=== PATIENT | female | born 1980 | race Caucasian/White ===

== ENCOUNTER 2023-01-26 08:11 | Emergency (ER) | payer OTHER ==
--- OUTSIDE RECORDS SUMMARY | 2023-01-26 08:21 | XMS REPORT | Continuity of Care Document ---
:1980 Author Organization [facility] t Address [address] [place] [address] Support Name Relationship Address Phone NONE, SELF SA [address] [phone] [place] [address] NONE, SELF [place] [address] [phone] [place] [address] BEE AGRAWAL MO [address] [phone] [place] [address] MICHAEL AGRAWAL Mother Unavailable [phone] Liset Mom, Eliana Child [address] [place] [address] Jose Aunt, Shruthi Unavailable Unavailable [phone] Liset Agrawal Mother [address] [phone] [place] [address] Heber Arriola O [address] [phone] [place] [address] Legal Guardian O Unavailable Unavailable None2 O Unavailable Unavailable Primary Caregiver O Unavailable Unavailable Bill Quigley O [address] [phone] [id number] [address] Morgan Benedict O [address] [place] [address] Avery Reece O [address] [place] [address] Brijesh Shaffer O Unavailable Unavailable Nuha Ma O Unavailable Unavailable NACHO LEVI Unavailable [address] [phone] [place] [address] AUNT, SHRUTHI SIMON Unavailable Unavailable Unavailabl e SHARMIN AGRAWAL Unavailable [address] [phone] [place] [address] SHARMIN AGRAWAL Unavailable [address] [phone] [place] [address] Care Team Providers Name Role Phone HALIE LYONS Primary Care Physician Unavailable [email or web address] Attending Clinician Unavailable René Watson Attending Clinician Unavailable Sma Newman Attending Clinician Unavailable LYSSA BELTRÁN Attending Clinician Unavailable Mary Jane Ozuna Attending Clinician Unavailable Madeline Ly Attending Clinician Unavailable [facility] Roma MENDOZA Attending Clinician Mayte EISENBERG, Marie Attending Clinician MARIE SOLANO Attending Clinician Unavailable Doctor, Natalie Attending Clinician Unavailable Martin Schwarz MD Attending Clinician SILVINA MALLOY Attending Clinician Unavailable Eufemia EISENBERG, [facility] Attending Clinician [facility] Attending Clinician Unavailable Silvina Malloy DO Attending Clinician Mary PARKER, Floyd Ross Attending Clinician Unavailable Pcp, Patient Does Not Have Attending Clinician Unavailable MARTIN SCHWARZ Attending Clinician Unavailable Andre Holloway MD Attending Clinician Sally Harrison MD Attending Clinician Ashley Evans Attending Clinician Unavailable Radha Arriola Attending Clinician Unavailable MAE PORTER Attending Clinician Unavailable Vic Kinsey Attending Clinician Unavailable Glo Norris Attending Clinician Unavailable Summer Jackson Attending Clinician [phone] Kinjal Donohue Attending Clinician Unavailable Lindsey Key Attending Clinician Harsha Castaneda CNP Attending Clinician MITCHELL SALAZAR Attending Clinician Unavailable Mitchell Salazar DO Attending Clinician Physician, No Primary or Family Admitting Clinician UnavailMalaika Myles Admitting Clinician Unavailable MITCHELL SALAZAR Admitting Clinician Unavailable Ashley Evans Unavailable Unavailable Summer Jackson Unavailable [id number] Payers Payer Name Policy Type Policy Number Effective Date Expiration Date S ource [facility] [place] P [id number] 2022 00:00:00 Women(HTW) [facility] [place] P [id number] Women(HTW) Problems Condition Condition Condition Status Onset Resolution Last Treating Co mments Source Name Details Category Date Date Treatment Clinician Date Dyspnea on Condition Active 2022-02-07 Niraj Evans exertion 02-07 11:08:16 [facility] Commun i 00:00: ty 00 Health Substernal Condition Active 2022-02-07 Niraj Evans chest pain 02-07 11:08:16 [facility] Comm uni 00:00: ty 00 Health Lower Condition Active 2022-02-07 Cristina Le gacy extremity 02-07 11:08:16 Ashley Commu ni edema, 00:00: ty right 00 Health Numbness Condition Active 2022-02-07 Niraj Evans in feet 02-07 11:08:16 [facility]i 00:00: ty 00 Health Chronic Condition Active 2022-02-07 Geronimo Evans egacy cough 02-07 11:08:16 [facility] 00:00: ty 00 Health Dietary Condition Active 2022-02-07 Geronimo Evans egacy counseling 02-07 11:07:52 [facility] Comm uni and 00:00: ty surveillan 00 Health ce Exercise Condition Active 2022-02-07 Niraj Evans Counseling 02-07 11:07:52 [facility] uni 00:00: ty 00 Health Vitamin D Condition Active 2022-02-07 Niraj Jackson deficiency 04-01 11:07:52 Summer Comm uni 00:00: ty 00 Health Hyperchole Condition Active 2022-02-07 Niraj Jackson sterolemia 04-01 11:07:52 Summer Comm uni 00:00: ty 00 Health Mastodynia Condition Active 2022-02-07 Niraj Jackson , right 03-26 11:07:52 [facility]i 00:00: ty 00 Health Family Condition Active 2022-02-07 Geronimo Jackson egacy history 03-26 11:07:52 [facility] breast 00:00: ty cancer 1st 00 Health degree relative <50 Irregular Condition Active 2022-02-07 Niraj Jackson periods 03-26 11:07:52 Summer Arroyozuri 00:00: ty 00 Health BMI Condition Active 2022-02-07 Geronimo Jackson egacy 38.0-38.9 03-26 11:07:52 Summer Choudhuryu ni 00:00: ty 00 Health Bipolar Bipolar Disease Active Cid affective affective 7-16 Heal th disorder, disorder, 00:00: current current 00 episode episode mixed mixed Panic Panic Disease Active Univers attack attack 12-27 ity of 00:00: [place] 00 [facility] Branch Bipolar Bipolar Disease Active Cid disorder, disorder, 4-11 Heal th current current 00:00: episode episode 00 depressed, depressed, mild mild Post-traum Post-traum Disease Active Overview : Cid atic atic - [facility] stress stress 00:00: g of this disorder, disorder, 00 note unspecifie unspecifie might be d d different from the original. [place] 1 Priority 3 Bipolar Bipolar Disease Active Overview: Jeremias is disorder, disorder, 01-12 [facility] current current 00:00: g of this episode episode 00 note depressed, depressed, might be mild mild different from the original. [place] 1 Priority 1 Anxiety Anxiety Disease Active Overview: Jeremias is disorder, disorder, - [facility] unspecifie unspecifie 00:00: g of this d d 00 note might be different from the original. [place] 1 Priority 2 Problem Problem Disease Active Overview: Jeremias is related to related to 11-08 [facility] social social 00:00: g of this environmen environmen 00 note t t might be different from the original. [place] 4 Priority 3 Problem Problem Disease Active Overview: Jeremias is related to related to 09-26 [facility] primary primary 00:00: g of this support support 00 note group group might be different from the original. [place] 4 Priority 1 Occupation Occupation Disease Active Overview : Jose Roberto al problem al problem 09-26 [facility] 00:00: g of this 00 note might be different from the original. [place] 4 Priority 2 Obesity, Obesity, Disease Active Overview: Rowe rris unspecifie unspecifie 04-18 [facility] d d 00:00: g of this 00 note might be different from the original. [place] 3 Priority 1 Oligohydra Oligohydra Disease Active U nivers mnios, mnios, 6-07 [place]y of [place] [facility] Chlamydia Chlamydia Disease Active Uni vers trachomati trachomati it y of s s [place] infection infection Medi vickie of lower of lower Branch genitourin genitourin mela sites mela sites Other Other Disease Active Univers genetic genetic ity of screening screening [place] [facility] Screening Screening Disease Active Overview: Univers for for [place] ity of malignant malignant g of this [place] neoplasm neoplasm note Medica l of cervix of cervix might be Br anch different from the original. 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 Supervisio Supervisio Disease Active U nivers n of other n of other it y of normal normal [place] [facility] Branch Need for Need for Disease Active Unive rs prophylact prophylact it y of ic ic [place] vaccinatio vaccinatio Me dical n with n with Branch tetanus-di tetanus-di phtheria phtheria (Td) (Td) Tubal Tubal Disease Active Univers ligation ligation ity of status status [facility] Chest pain Chest pain Disease Active H [facility] Health Acute Acute Disease Active Cid nonintract nonintract He alth able able headache headache Conjunctiv Conjunctiv Disease Active H arris itis of itis of Health both eyes both eyes History of Past Illness Condition Condition Condition Status Onset Resolution Last Treating Co mments Source Name Details Category Date Date Treatment Clinician Date Clinical Condition Inactiv 2022-02-07 2022-02-07 Niraj Evans health e 09-18 00:00:00 11:08:16 [facility] i educator 00:00: ty visit 00 Health Std Condition Inactiv 2022-02-07 2022-02-07 Niraj Evans screening e 03-26 00:00:00 11:08:16 Ashley Com gabby 00:00: ty 00 Health Routine Condition Inactiv 2022-02-07 2022-02-07 Niraj Evans gynecologi e 03-26 00:00:00 11:08:16 Ashley Co mmuni vickie exam 00:00: ty 00 Health Allergies, Adverse Reactions, Alerts Allergy Allergy Status Severity Reaction(s) Onset Inactive Treating Comm ents Source Name Type Date Date Clinician No Known DA Active U 2022- [facility] [place] 00:[facility]: e 00 [facility] No Known DA Active U [facility] Allergie 1-31 [place] 00:00: e 00 [facility] No Known DA Active U [facility] Allergie 6-07 Clear s 00:00: Hair 00 [facility] No Known DA Active U [facility] Allergie 6-17 Clear s 00:00: Hair 00 [facility] No Known DA Active U [facility] Allergie 3-17 [place] 00:[facility]: e 00 [facility] CODEINE DRUG Active Hives Univers INGREDI 12-30 ity of 00:00: [place] 00 [facility] Branch Codeine Propensi Active Nausea Univers ty to and/or 12-30 ity of adverse Vomiting 00:00: [place] reaction 00 Medical s Branch Codeine Propensi Active Hives, Cid ty to Nausea and 12-30 Health adverse Vomiting 00:00: reaction 00 s to drug Family History Family Member Diagnosis Comments Start Date Stop Date Source Natural brother Depression Jose Roberto lino Maternal grandmother Depression Jeremias is Health Natural mother Depression Jose Roberto [facility] Social History Social Habit Start Date Stop Date Quantity Comments Source History SDOH Alcohol Univ ersity of Frequency [place] [facility] [place] History SDOH Alcohol Univ ersity of Std Drinks [place] [facility] [place] History SDOH Alcohol Univ ersity of Binge [facility] Exposure to Not sure University of SARS-CoV-2 (event) [facility] History of tobacco Snuff User [facility] use Alcohol intake 2022-08-07 2022-08-07 .14 /d Jose Roberto [facility] 00:00:00 00:00:00 PHQ2 Questionairre 2022-02-07 2022-02-07 [facility] Score 10:21:54 10:21:54 Health is there any chance 2022-02-07 2022-02-07 No [facility] that you could be 10:21:54 10:21:54 Health ? if the patient is 2022-02-07 2022-02-07 No [facility] using/has used a 10:21:54 10:21:54 Health vaping item, Current, Former, Never Used, Not asked drug use 2022-02-07 2022-02-07 Never [facility] ty 10:21:54 10:21:54 Health alcohol use 2022-02-07 2022-02-07 Currently [facility] ity 10:21:54 10:21:54 Health social history 2022-02-07 2022-02-07 reviewed today [facility] reviewed E&M 10:21:54 10:21:54 Health sexual orientation 2022-02-07 2022-02-07 Heterosexual [facility] 10:21:54 10:21:54 Health albumin, serum 2021-03-26 2021-03-26 4.4 g/dL [facility]unity 11:31:00 11:31:00 Health assessment of health 2021-03-26 2021-03-26 Adequate [facility] literacy (NCQA [facility] 10:13:03 10:13:03 Healtena h 2014 Standards, 3C10) alcohol use, 2021-03-26 2021-03-26 holidays/special [facility] frequency 10:13:03 10:13:03 occasions only Health how often per day 2021-03-26 2021-03-26 current some day L [facility]acy Community the patient is using 10:13:03 10:13:03 vaper Heal th vaping system patient considered 2021-03-26 2021-03-26 No [facility] to be homeless 10:13:03 10:13:03 Health Tobacco use and 2021-02-08 2021-02-08 User of smokeless Rowe rris Health exposure 00:00:00 00:00:00 tobacco Alcohol Comment 2021-02-08 2021-02-08 1 glass of wine [facility] CureVac 00:00:00 00:00:00 twice a week Sex [birth year] Jose Roberto Santana alth 00:00:00 00:00:00 Smoking Status Start Date Stop Date Source Ex-smoker 2021-02-08 00:00:00 2021-02-08 00:00:00 Jose Roberto loo Never smoker [facility] Medications Ordered Filled Start Stop Current Ordering Indication Dosage Frequency Signature Comments Components Source Medication Medication Date Date Medication? Clinician (SIG) Name Name nitrofurant Yes UTI 100mg Q.5D Take 1 Jim ris oin 1-03 symptoms capsule by [facility] h mono/m-ana 00:00: mouth 2 tals 00 times (MACROBID) daily 100 mg capsule erythromyci 2021-07- No Administer Jose Roberto n (ROMYCIN) 08-05 in each [facility] 5 mg/gram 00:00: 23:59 eye at (0.5 %) 00 :00 bedtime ophthalmic nightly ointment for 10 days fluticasone 2021-07- No Cough 1{spray QD Use 1 Cid propionate 08-16 } Hood in [facility] (FLONASE) 00:00: 00:00 each 50 00 :00 nostril mcg/actuati daily on nasal spray ergocalcife 2021-07- No Vitamin D 39569O Take 1 Cid rol 08-07 deficiency capsule by alth (VITAMIN 00:00: 00:00 mouth once D2) 1,250 00 :00 a week for mcg (50,000 12 doses unit) capsule albuterol 2021-07- No Former 2{puff} Inhale 2 Cid 90 08-07 smoker Puffs by [facility] mcg/actuati 00:00: 00:00 mouth 4 on inhaler 00 :00 times daily as needed for Shortness of Breath albuterol 2022- No Cough 4{puff} Jim ris (VENTOLIN 04-17 Health HFA,PROVENT 15:26: 09:30 [place] 57 :04 HFA,PROAIR HFA) inhaler 4 Puff cetirizine 2022- No Cough 10mg QD Take 1 Jim ris (ZYRTEC) 10 04-17 tablet by alth mg tablet 00:00: 00:00 mouth 00 :00 daily fluticasone 2021- No Cough 1{spray QD Use 1 Cid propionate 04-17 } Hood in [facility] (FLONASE) 00:00: 00:00 each 50 00 :00 nostril mcg/actuati daily on nasal spray escitalopra 2022- No Bipolar 20mg Take 1 Cid m oxalate 01-20 affective tablet by [facility] (LEXAPRO) 00:00: 00:00 disorder, mouth 20 mg 00 :00 current every tablet episode morning mixed, current episode severity unspecified lithium 2021-2022- No Bipolar 300mg Take 1 Jim ris (LITHOBID) 01-20 affective tablet by Health 300 mg 00:00: 00:00 disorder, mouth 3 extended 00 :00 current times release episode daily tablet mixed, current episode severity unspecified gabapentin 2021-2022- No Anxiety 300mg Take 1 Cid (NEURONTIN) 01-20 disorder, capsule by Health 300 mg 00:00: 00:00 unspecified mouth 3 capsule 00 :00 type times daily lurasidone 2021-2022- No Bipolar 60mg Take 1 H arris (LATUDA) 60 01-20 affective tablet by Health mg Tab 00:00: 00:00 disorder, mouth tablet 00 :00 current every episode evening mixed, with food. current episode severity unspecified lithium 2021-2021- No Bipolar 300mg Take 1 Jim ris (LITHOBID) 10-15 affective tablet by Health 300 mg 00:00: 00:00 disorder, mouth 3 extended 00 :00 current times release episode daily tablet mixed, current episode severity unspecified gabapentin 2021- No Anxiety 300mg Take 1 Cid (NEURONTIN) 10-15 disorder, capsule by Health 300 mg 00:00: 00:00 unspecified mouth 3 capsule 00 :00 type times daily lurasidone 2021-2021- No Bipolar 60mg Take 1 H arris (LATUDA) 60 10-15 affective tablet by Health mg Tab 00:00: 00:00 disorder, mouth tablet 00 :00 current every episode evening mixed, with food. current episode severity unspecified escitalopra 2021-2021- No Anxiety Take 1 Cid m (LEXAPRO) 10-15 disorder, tablet by Health 5 mg tablet 00:00: 23:59 unspecified mouth 00 :00 type every morning for 7 days, THEN 2 tablets every morning for 23 days. lithium 2021-2021- No Bipolar 300mg Take 1 Jim ris (LITHOBID) 08-23 affective tablet by Health 300 mg 00:00: 00:00 disorder, mouth 3 extended 00 :00 current times release episode daily tablet mixed, current episode severity unspecified gabapentin Anxiety 300mg Take 1 Cid (NEURONTIN) 08-23 disorder, capsule by Health 300 mg 00:00: 00:00 unspecified mouth 3 capsule 00 :00 type times daily lurasidone 2021- No Bipolar 60mg Take 1 H arris (LATUDA) 60 08-23 affective tablet by Health mg Tab 00:00: 00:00 disorder, mouth tablet 00 :00 current every episode evening mixed, with food. current episode severity unspecified hydrOXYzine 2020- No 25mg 25 mg, Uni vers (ATARAX) 12-27 0603 Oral, ity of tablet 25 21:30: 23:18 ONCE, 1 [place] mg 00 :00 dose, [facility] 12/27/20 at Branch 1630, CYNTHIA ondansetron 2020- No 4mg 4 mg, Slow Univers (ZOFRAN 08-12 IV Push, ity of (PF)) 11:30: 10:36 ONCE, 1 [place] injection 4 00 :00 dose, [place] [facility] mg 08/12/20 at Branch 0530, CYNTHIA ketorolac 2020- No 30mg 30 mg, Unive rs (TORADOL) 08-12 Slow IV ity of injection 11:30: 10:36 Push, [place] 30 mg 00 :00 ONCE, 1 Medical dose, [facility] 08/12/20 at 0530, CYNTHIA
Fa cult member approving Restricted medication : MITCHELL SALAZAR NaCl 0.9% 2020- No 1000mL at 999 Uni vers (NS) bolus 08-12 mL/hr, ity of infusion 10:30: 12:44 1,000 mL, Ting as 1,000 mL 00 :00 IV Medical Infusion, [place] ONCE, 1 dose, [place] 08/12/20 at 0430, CYNTHIA FERROUS Yes 1 tab Univers SULFATE 325 08-12 daily ity of MG (65 MG 10:00: [place] IRON) ORAL 03 Medical CPSR [place] ZITHROMAX Yes As Univer s GRAM ORAL 08-12 directed ity of PACK 10:00: [place] [address] Medical Branch FERROUS Yes 1 tab Univers SULFATE 325 1-17 daily ity of MG (65 MG 10:00: [place] IRON) ORAL Medical CPSR Branch ZITHROMAX 1 Yes As Univer s GRAM ORAL 1-17 directed ity of PACK 10:00: [place] [facility] FERROUS Yes 1 tab Univers SULFATE 325 1-17 daily ity of MG (65 MG 10:00: [place] IRON) ORAL Medical CPSR Branch ZITHROMAX 1 Yes As Univer s GRAM ORAL 1-17 directed ity of PACK 10:00: [place] [facility] FERROUS Yes 1 tab Univers SULFATE 325 1-17 daily ity of MG (65 MG 04:00: [place] IRON) ORAL Medical CPSR Branch ZITHROMAX 1 Yes As Univer s GRAM ORAL 1-17 directed ity of PACK 04:00: Medical Branch sulfamethox Yes [id number] 1{tbl} Take 1 Univers azole-trime 1-17 tablet by ity of thoprim 00:00: mouth [place] 800-160 mg 00 every 12 Medic al per tablet (twelve) Branc h hours. sulfamethox Yes [id number] 1{tbl} Take 1 Univers azole-trime 1-17 tablet by ity of thoprim 00:00: mouth [place] 800-160 mg 00 every 12 Medic al per tablet (twelve) Branc h hours. sulfamethox Yes [id number] 1{tbl} Take 1 Univers azole-trime 1-17 tablet by ity of thoprim 00:00: mouth [place] 800-160 mg 00 every 12 Medic al per tablet (twelve) Branc h hours. sulfamethox Yes [id number] 1{tbl} Take 1 Univers azole-trime 1-17 tablet by ity of thoprim 00:00: mouth [place] 800-160 mg 00 every 12 Medic al per tablet (twelve) Branc h hours. ZOLPIDEM 10 Yes 1 Tab Oral Univers MG ORAL TAB 6 QHSPRN ity of 00:00: [place] 00 Medical Branch Yes 1 Tab Oral Uni vers VIT-IRON 6-07 DAILY ity of FUMARATE-FA 00:00: [place] 60-1 MG 00 Medical ORAL TAB Branch ACETAMINOPH Yes 2 Tab Oral Univers EN 325 MG 6-07 Q4HPRN ity of ORAL TAB 00:00: [place] 00 Medical Branch ZOLPIDEM 10 Yes 1 Tab Oral Univers MG ORAL TAB 6-07 QHSPRN ity of 00:00: [place] 00 Medical Branch Yes 1 Tab Oral Uni vers VIT-IRON 6-07 DAILY ity of FUMARATE-FA 00:00: [place] 60-1 MG 00 Medical ORAL TAB Branch ACETAMINOPH Yes 2 Tab Oral Univers EN 325 MG 6-07 Q4HPRN ity of ORAL TAB 00:00: [place] 00 Medical Branch ZOLPIDEM 10 Yes 1 Tab Oral Univers MG ORAL TAB 6-07 QHSPRN ity of 00:00: [place] 00 Medical Branch Yes 1 Tab Oral Uni vers VIT-IRON 6-07 DAILY ity of FUMARATE-FA 00:00: [place] 60-1 MG 00 Medical ORAL TAB Branch ACETAMINOPH Yes 2 Tab Oral Univers EN 325 MG 6-07 Q4HPRN ity of ORAL TAB 00:00: [place] 00 Medical Branch ZOLPIDEM 10 Yes 1 Tab Oral Univers MG ORAL TAB 6-07 QHSPRN ity of 00:00: [place] 00 Medical Branch Yes 1 Tab Oral Uni vers VIT-IRON 6-07 DAILY ity of FUMARATE-FA 00:00: [place] 60-1 MG 00 Medical ORAL TAB Branch ACETAMINOPH Yes 2 Tab Oral Univers EN 325 MG 6-07 Q4HPRN ity of ORAL TAB 00:00: [place] 00 Medical Branch LATUDA 1969-0 Yes Take 1 [facility] (LURASIDONE 1- tablet by Com gabby HCL) 20 MG 00:00: mouth at ty TABS 00 bedtime Health (LITHIUM 1969-0 Yes Take 1 [facility] CARBONATE) 1- capsule by Com gabby 300 MG CAPS 00:00: mouth ty 00 three Health times a day (GABAPENTIN 1969-0 Yes Take 1 [facility] ) 600 MG 1-01 tablet by Commun i TABS 00:00: mouth ty 00 twice a Health day Vital Signs Vital Name Observation Time Observation Value Comments Source Respiratory rate 2020-12-27 23:20:08 17 /min [facility] Oxygen saturation in 2020-12-27 23:20:08 98 /min University of Arterial blood by [facility] Pulse oximetry Branch Systolic blood 2020-12-27 23:20:08 142 mm[Hg] Univer sity of pressure [place] [facility] Diastolic blood 2020-12-27 23:20:08 79 mm[Hg] Unive rsity of pressure [place] [facility] Heart rate 2020-12-27 23:20:08 80 /min [facility]i ty [facility] [place] [facility] Body temperature 2020-12-27 19:52:00 36.67 A[place]da Univ ersity of [place] [facility] Body height 2020-12-27 19:52:00 167.6 cm [facility]i ty [facility] [place] [facility] Body weight 2020-12-27 19:52:00 88.451 kg [facility] [place] [facility] BMI 2020-12-27 19:52:00 31.47 kg/m2 [facility] [place] [facility] Systolic blood 2020-08-12 12:51:16 123 mm[Hg] Univer sity of pressure [place] [facility] Diastolic blood 2020-08-12 12:51:16 78 mm[Hg] Unive rsity of pressure [place] [facility] Heart rate 2020-08-12 12:51:16 105 /min Universi ty [facility] [place] [facility] Respiratory rate 2020-08-12 12:51:16 16 /min Univ ersity of [place] [facility] Oxygen saturation in 2020-08-12 12:51:16 100 /min University of Arterial blood by [facility] Pulse oximetry Branch Body temperature 2020-08-12 09:58:00 36.94 A[place]da Univ ersity of [place] [facility] Body height 2020-08-12 09:58:00 167.6 cm [facility]i ty [facility] [place] [facility] Body weight 2020-08-12 09:58:00 84.823 kg [facility]i ty [facility] [place] [facility] BMI 2020-08-12 09:58:00 30.18 kg/m2 [facility]i [facility] [place] [facility] Systolic blood 2020-08-12 12:51:16 123 mm[Hg] Univer sity of pressure [place] [facility] Diastolic blood 2020-08-12 12:51:16 78 mm[Hg] Unive rsity of pressure [place] [facility] Heart rate 2020-08-12 12:51:16 105 /min [facility]i ty [facility] [place] [facility] Respiratory rate 2020-08-12 12:51:16 16 /min [facility] Oxygen saturation in 2020-08-12 12:51:16 100 /min University Arterial blood by [facility] Pulse oximetry Branch Body temperature 2020-08-12 09:58:00 36.94 Aleyda [facility] Body height 2020-08-12 09:58:00 167.6 cm [facility] Body weight 2020-08-12 09:58:00 84.823 kg [facility] BMI 2020-08-12 09:58:00 30.18 kg/m2 [facility] Systolic blood 2022-07-27 07:05:00 125 mm[Hg] [facility] pressure Diastolic blood 2022-07-27 07:05:00 78 mm[Hg] [facility] pressure Heart rate 2022-07-27 07:05:00 82 /min [facility] Body temperature 2022-07-27 07:05:00 36.72 Aleyda [facility] is Health Respiratory rate 2022-07-27 07:05:00 18 /min [facility] Oxygen saturation in 2022-07-27 07:05:00 95 /min [facility] Arterial blood by Pulse oximetry Body height 2022-07-26 20:19:00 167.6 cm [facility] Body weight 2022-07-26 20:19:00 85.3 kg [facility] BMI 2022-07-26 20:19:00 30.35 kg/m2 [facility] blood pressure, 2021-03-26 10:13:03 82 mm[Hg] [facility] diastolic Health blood pressure, 2021-03-26 10:13:03 108 mm[Hg] [facility] systolic Health oxygen saturation, 2021-03-26 10:13:03 98 /min [facility] oximetry Health pulse rate 2021-03-26 10:13:03 79 /min [facility] temperature E&M 2021-03-26 10:13:03 97.7 [degF] [facility] Health height in 2021-03-26 10:13:03 165.10 cm [facility] centimeters E&M Health weight E&M 2021-03-26 10:13:03 230 [lb_av] Niraj Josue [facility] weight in kilograms 2021-03-26 10:13:03 104.55 kg L [facility] temperature site 2021-03-26 10:13:03 oral Lega cy [facility] Procedures Procedure Date / Time Performing Clinician Source Performed CT HEAD W/O CONTRAST 2022-07-26 23:36:10 Rhea Hess [facility] XRAY CHEST 1 VIEW 2022-07-26 22:21:00 Marie Solano [facility] CBC/DIFF 2022-07-26 22:17:00 [facility] BASIC METABOLIC PANEL 2022-07-26 22:17:00 Rhea Hess [facility] PT/INR/PTT 2022-07-26 22:17:00 Rhea Hess h TROPONIN I 2022-07-26 22:17:00 Rhea Hess h CBC 2022-07-26 22:17:00 [facility] 2022-07-26 20:26:[address] CHEST W/O CONTRAST 2022-05-28 11:55:00 Martin Schwarz [facility] ROUTINE 12 LEAD EKG 2022-05-19 15:49:23 Silvina Malloy h PULMONARY - 6 MINUTE 2022-04-24 14:38:18 Carlos Eastman [facility] WALK EXERCISE TEST - COMPLEX PULMONARY FUNCTION TEST 2022-04-24 14:04:28 Carlos Eastman [facility] CBC/DIFF 2022-04-17 15:35:00 Martin Schwarz COMPREHENSIVE METABOLIC 2022-04-17 15:35:00 Martin Schwarz [facility] PANEL THYROID STIMULATING 2022-04-17 15:35:00 Martin Schwarz ealth HORMONE (TSH) HEPATITIS PANEL 2022-04-17 15:35:00 Martin Schwarz CHLAM/GC DNA AMPLI 2022-04-17 15:35:00 Martin Schwarz LIPID PROFILE 2022-04-17 15:35:00 Martin Schwarz h HEMOGLOBIN A1C 2022-04-17 15:35:00 Martin Schwarz h VIT D, 25-HYDROXY 2022-04-17 15:35:00 Martin Schwarz [facility] URINALYSIS 2022-04-17 15:35:00 Martin Schwarz h CBC 2022-04-17 15:35:00 Martin Schwarz h HIV AG/AB COMBO ROUTINE 2022-04-17 15:35:[address] [facility] SCREENING URINALYSIS 2022-04-17 15:35:00 Martin Schwarz h MICROSCOPIC-REFLEX DUPLEX DOPPLER LOWER 2022-03-21 09:35:00 Sally Harrison [facility] EXTREMITY VENOUS, UNILATERAL OR LIMITED TROPONIN I 2022-03-21 06:01:00 Andre Holloway ealth XRAY CHEST 2 VIEWS 2022-03-21 04:43:13 Andre Holloway [facility] TEST 2022-03-21 01:37:00 Sona Brooks HIV AG/AB COMBO 2022-03-21 01:18:00 Sona Brooks DIAGNOSTIC/SYMPTOMATIC BASIC METABOLIC PANEL 2022-03-21 01:18:00 Sona Brooks [facility] TROPONIN I 2022-03-21 01:18:00 Sona Brooks CBC/DIFF 2022-03-21 01:18:00 [facility] CBC 2022-03-21 01:18:00 [facility] D-DIMER 2022-03-21 01:18:00 [facility] GLUCOSE POC 2022-03-20 23:00:00 Unknown, Provider Jose Roberto Corral lt 12 LEAD EKG 2022-03-20 22:53:29 [facility] CONSENT/REFUSAL FOR 2022-01-15 01:01:38 Doctor Unassigned, No Un [facility] DIAGNOSIS AND TREATMENT Name Medical [facility] Most recent diastolic 2021-03-26 10:38:48 Summer Jackson [facility] blood pressure 80-89 mm Health Hg (HTN, CKD, CAD) (DM) Most recent systolic 2021-03-26 10:38:48 Summer Jackson [facility] blood pressure less than Health 130 mm Hg (DM), (HTN, CKD, CAD) CONSENT/REFUSAL FOR 2021-02-22 22:24:34 Doctor Unassigned, No [facility] Name [facility] URINALYSIS 2020-12-27 21:51:00 [facility] POCT TEST 2020-12-27 21:51:00 [facility] TROPONIN I 2020-12-27 21:34:00 [facility] HEPATIC FUNCTION PANEL 2020-12-27 21:34:00 [id number] (ALB,T.PRO,BILI [facility] Branch T,BU/BC,ALT,AST,ALK PHOS) BASIC METABOLIC PANEL 2020-12-27 21:34:00 [facility] (NA, K, CL, CO2, Medical Branch GLUCOSE, BUN, CREATININE, CA) CBC WITH DIFF 2020-12-27 21:34:00 [facility] N-TERMINAL PRO-BNP 2020-12-27 21:34:00 Ethel See [facility] XR CHEST 1 VW 2020-12-27 20:52:39 Ethel See [facility] CONSENT/REFUSAL FOR 2020-12-27 19:46:02 Doctor Unassigned, No [facility] Name [facility] CT ABDOMEN PELVIS WO 2020-08-12 11:05:55 Mitchell Salazar [facility] CONTRAST Medical Branch XR CHEST 1 VW 2020-08-12 11:05:40 Mitchell Salazar o f [facility] COVID-19 (ID NOW RAPID 2020-08-12 11:00:00 Mitchell Salazar [facility] 2020-08-12 10:35:00 Martin [facility] HEPATIC FUNCTION PANEL 2020-08-12 10:34:00 Mitchell Salazar [facility] ([id number]) (ALB,T.PRO,BILI [facility] T,BU/BC,ALT,AST,ALK PHOS) BASIC METABOLIC PANEL 2020-08-12 10:34:00 Mitchell Salazar [facility] (NA, K, CL, CO2, Medical Branch GLUCOSE, BUN, CREATININE, CA) CBC WITH DIFF 2020-08-12 10:34:00 Martin [facility] URINALYSIS 2020-08-12 10:34[facility] 2020-08-12 10:34:00 Martin [facility] Plan of Care Planned Activity Planned Date Details Comments Source Future Scheduled Test 2022 00:00:00 Breast Cancer Scrn [facility] (Yearly) [code = Breast Cancer Scrn (Yearly)] Future Scheduled Test 2012 00:00:00 Screening for [facility] malignant neoplasm of cervix (procedure) [code = 189414106] Future Scheduled Test 2012 00:00:00 Screening for [facility] malignant neoplasm of cervix (procedure) [code = 239628678] Future Scheduled Test 1983-01-20 00:00:00 COVID-19 Vaccine (#1) [facility] [code = COVID-19 Vaccine (#1)] Encounters Start End Encounter Admission Attending Care Care Encounter Source Date/Time Date/Time Type Type Clinicians Facility Department ID 2022-12-04 [facility] 14:10:19 0511 [facility] 2022-11-28 Outpatient PASA PASA [place] 15:15:29 0505 [facility] 2022-10-24 Outpatient alannah [facility] [id number] [facility] 13:17:03 [id number] [facility] 2022-07-25 Outpatient alannah [facility] [id number] [facility] 18:05:04 [id number] [facility] 2021-07-15 Outpatient [facility] [id number] [facility] 05:06:58 [id number] [facility] 2021-05-12 Outpatient [facility] [id number] Legacy 14:48:17 [id number] [facility] 2021-05-12 Outpatient [facility] [id number] Legacy 14:40:04 [id number] [facility] 2021-05-12 Outpatient [facility] [id number] Legacy 08:12:20 [id number] [facility] 2021-05-12 Outpatient [facility] [id number] [facility] 08:08:09 [id number] [facility] 2021-05-09 Outpatient [facility] [id number] Legacy 21:47:32 [id number] [facility] 2020-10-21 Inpatient [facility] MARY [id number] [facility] 17:52:00 [id number] [facility] 2020-01-11 Inpatient [facility] MARY [id number] [facility] 20:48:00 12175 [facility] 2023-01-23 2023-01-23 Emergency EM Watson, [facility] MARY [id number] [facility] 14:04:00 14:36:00 René 13 [facility] 2022-12-03 2022-12-03 Outpatient LAURA Morgan 4475 [place] 15:02:21 15:02:21 Cait 0510 [facility] 2022-10-23 2022-10-23 Emergency EM Trent, [facility] MARY [id number] [facility] 12:02:00 14:12:00 Sam 48 [facility] 2022-10-22 2022-10-[address] [facility] [id number] Cid 00:00:00 00:00:00 Conrad MCKENZIE 2022-09-30 2022-10-01 Emergency EM Laith, [facility] MARY [id number] [facility] 22:36:00 03:55:00 Mary Jane 98 [facility] 2022-08-26 2022-08-27 Emergency EM Malachi, [facility] MARY [id number] [facility] 19:08:00 00:30:00 Madeline Izquierdo [facility] 2022-07-28 2022-07-28 E-Visit States, [facility] [id number] Simpson 00:00:00 00:00:00 Roma Flores [facility]alt [facility] 2022-07-26 2022-07-27 Emergency Brusatori, [facility] [id number] Simpson 20:26:00 07:58:00 [facility] 2022-07-27 2022-07-27 Emergency BRUSATORI, [facility] [id number] Simpson 03:43:41 03:43:41 [facility] 2022-07-26 2022-07-26 Emergency BRUSATORI, [facility] [id number] Simpson 22:01:48 23:36:15 [facility] 2022-07-26 2022-07-26 Emergency [facility] [id number] Simpson 22:11:07 22:36:01 [facility] 2022-07-26 2022-07-26 E-Visit Doctor, [facility] [id number] Simpson 00:00:00 00:00:00 [facility] 2022-06-25 2022-06-25 Outpatient [facility] [id number] Simpson 00:00:00 00:00:00 [facility] 2022-06-18 2022-06-18 [facility]ici [facility] [id number] Simpson 16:40:00 16:40:00 ne [facility] 2022-06-16 2022-06-16 Outpatient SILVINA MALLOY [facility] [id number] Simpson 00:00:00 00:00:00 [facility] 2022-06-12 2022-06-12 [facility] [id number] Simpson 00:00:00 00:00:00 [facility] 2022-05-28 2022-05-28 Ancillary [facility] [id number] Simpson 11:00:00 12:05:05 Procedure Heal th 2022-05-21 2022-05-21 Outpatient [facility] [id number] Simpson 00:00:00 00:00:00 Health 2022-05-21 2022-05-21 E-Consult Eufemia, [facility] [id number] Simpson 00:00:00 00:00:00 [facility] 2022-05-21 2022-05-21 Clinical [facility] [id number] Simpson 00:00:00 00:00:00 Case Abeba Sousa 2022-05-19 2022-05-19 Office SchwarzMartin [facility] [id number] Simpson 15:00:00 16:41:29 Visit Silvina Malloy [facility] 2022-05-19 2022-05-19 Orders Silvina Malloy [facility] [id number] Simpson 00:00:00 00:00:00 Only [facility] 2022-05-16 2022-05-16 Outpatient [facility] [id number] Simpson 00:00:00 00:00:00 [facility] 2022-05-01 2022-05-01 Nurse Nani [facility] [id number] Simpson 00:00:00 00:00:00 Triage Floyd cooney [facility] 2022-04-24 2022-04-24 Hospital Pcp, [facility] [id number] Simpson 14:00:00 23:59:00 Encounter Patient Lisa quick Does Not Have 2022-04-17 2022-04-17 Outpatient 3 [facility] [id number] Simpson 15:35:36 15:36:14 [facility] 2022-04-17 2022-04-17 Outpatient [facility] [id number] Simpson 15:35:36 15:36:14 [facility] 2022-04-17 2022-04-17 Office Karishma [facility] [id number] Cid 14:40:00 15:34:49 Visit [facility] 2022-04-17 2022-04-17 [facility] [id number] Simpson 00:00:00 00:00:00 [facility] 2022-03-21 2022-03-21 Emergency Andre Holloway [facility] [id number] Simpson 02:59:00 10:26:00 Sally Harrison [facility] 2022-03-21 2022-03-21 Emergency [facility] [id number] Simpson 09:16:12 09:42:41 Health 2022-03-21 2022-03-21 Outpatient [facility] [id number] Simpson 04:30:28 04:43:24 Health 2022-03-20 2022-03-20 Emergency 1 [facility] [id number] Simpson 22:47:00 22:47:00 [facility] 2022-02-07 2022-02-08 Office Cristina, Ashley [facility] Bhargav harp/ Niraj 00:00:00 00:00:00 Visit Radha Arriola [id number] Communi [id number] [facility] 2022-01-14 2022-01-15 Emergency X [place], [facility] ERT [id number] Univers 20:53:00 00:00:[address] [facility] [place] 2022-01-14 2022-01-15 Emergency Hukranthi, [facility] [id number] Univers 20:53:00 00:00:00 [facility] [id number] it y of [place] 4.2.7.2.686 Ro HAIR [id number] [address] ([facility]) 2022-01-01 2022-01-01 Outpatient Malachi, SHERLYN LABO [id number] [facility] 07:22:00 07:22:00 Madeline 07 [facility] 2021-12-31 2022-01-01 Emergency EM Malachi, [facility] MARY [id number] [facility] 23:34:00 02:05:00 Madeline 14 [facility] 2021-12-31 2022-01-01 Emergency EM Malachi, [facility] [id number] 23:34:00 02:05:00 Madeline [id number] [facility] 2021-07-04 2021-07-04 Emergency EM Tio, [facility] MARY [id number] [facility] 12:13:00 15:56:00 Vic [id number] [facility] 2021-07-04 2021-07-04 Emergency EM Tio, [facility] [id number] [facility] 12:13:00 15:56:00 Vic 81 [facility] 2021-06-20 2021-06-20 Emergency EM Laith, [facility] MARY [id number] [facility] 22:30:00 23:44:00 Mary Jane [id number] [facility] 2021-06-20 2021-06-20 Emergency EM Laith [facility] [id number] [facility] 22:30:00 23:44:00 Mary Jane 23 [facility] 2021-04-28 2021-04-28 Inpatient EM Glo Norris [facility] MARY [id number] [facility] 13:53:00 19:49:00 74 [place] [facility] 2021-03-26 2021-03-26 Office Summer Jackson [facility] En counter/ Legacy 00:00:00 00:00:00 Visit Kinjal Donohue [id number] [facility] [id number] 2021-02-22 2021-02-22 Emergency Oziel [facility] [id number] Univers 18:05:00 19:28:00 [facility] [id number] i [place] [id number] [address] ([facility]) 2021-02-22 2021-02-22 Emergency X [facility] ERT [id number] Univers 17:23:00 17:23:[address] [facility] [place] 2020-12-27 2020-12-27 Emergency Castaneda, [facility] [id number] Univers 15:26:00 19:12:00 [facility] [id number] [place] [id number] [address] ([facility]) 2020-12-27 2020-12-27 Emergency X [facility] ERT [id number] Univers 14:46:00 14:46:[address] [facility] [place] 2020-08-12 2020-08-12 Emergency [facility] [id number] Univers 03:56:00 06:53:[address] [facility] [place] 2020-08-12 2020-08-12 Emergency Salazar, [facility] [id number] Univers 03:56:00 06:53:00 [facility] [id number] [place] [id number] [address] ([facility]) 2020-08-12 2020-08-12 Emergency Martin [facility] [id number] 03:56:00 06:53:00 [place] [id number] [place] 4.2.7.2.686 [place] [id number] Hospital 014 (CLC) Results Test Description Test Time Test Comments Results Result Comments Source INFLUENZA A B POC 2022-10-23 13:33:00 Test Item Value Reference Range Interpretation Comme nts INFLUENZA A POC (test code = INFLAAG) Negative Negative INFLUENZA B POC (test code = INFLBAG) Negative Negative SOURCE: NASALCOVID 19 INHOUSE [id number] 13:32:00 Test Item Value Reference Range Interpretation Comments COVID 19 INHOUSE AG (test code = NEGATIVE NEGATIVE [id number]) AG STREP GROUP A (THROAT)2022-10-23 13:27:00 Test Item Value Reference Range Interpretation Comments AG STREP GROUP A (THROAT) (test code NEGATIVE NEGATIVE = STREPA) - XR CHEST 1 [id number] 12:49:00 [facility] 1980 Sex: F FAX: Kirt Staley APR [place]: B St: REG Name: JERI LOPEZ [facility] : 1980 Age/S: 42/F[address] [facility] Unit #: [id number] Loc: [place] [address] Phys: Kirt Staley Acct:[id number] Dis Date: Status: REG ER PHONE #: [phone] Exam Date: 10/23/2022 1235 FAX #: [phone] Reason: cough EXAMS: CPT CODE: [id number] XR CHEST 1 V 00530 REASON FOR EXAM: cough Exam OrderDate: 10/23/2022 12:22 PM Ordering MRyan: Kirt Staley PROCEDURE: - XR CHEST 1 V COMPARISON:None FINDINGS: The lungs are clear. There is no pleural effusion or pneumothorax. Pulmonary vascularity is within normal limits. Cardiomediastinal silhouette is normal in size for technique. The mediastinal contours are within normal limits. Musculoskeletal structures are within normal limits. Cholecystectomy. IMPRESSION: No acute cardiopulmonary process. Location: [facility] at 1244 Reported and signed by: Elijah Rothman MD CC: Kirt Staley Technologist: Zuleika MINER(R) Trnscrd Date/Time/By: 10/23/2022 (7854) : By: [email or web address] [facility]: S: 10/23/2022 (0083) PAGE 1 Signed Report- XR CHEST 1 [id number] 02:24:00 [facility])Name: JERI LOPEZ : 1980 Sex: F FAX: Mary Jane Ozuna MD [phone] [place]: B St: REG Name: JERI LOPEZ [facility] : 1980 Age/S: 42/F [address] Unit #: [id number] Loc: [place] [address] Phys: Mary Jane Ozuna MD Acct: [id number] Dis Date: Status: REG ER PHONE #: [phone] Exam Date: 10/01/2022 0155 FAX #: [phone] Reason: cough, chemical inhalation EXAMS: CPT CODE: [id number] XR CHEST 1 V 31005 EXAM: - XR CHEST 1 V HISTORY: Cough. FINDINGS: Single AP view of the chest is provided. Heart size and vascularity are within normal limits. There is no evidence of a focal consolidation. There is no pleural effusion or pneumothorax. There is no definite acute osseous abnormality. IMPRESSION: No radiographic evidence of acute cardiopulmonary process. at 0224 Reported and signed by: Carlos Almanzar MD CC: Mary Jane Ozuna MD Technologist: Annalise Marinelli RT(R) Trnscrd Date/Time/By: 10/01/2022 (223) : By: [email or web address] [facility] Print D/T: S: 10/01/2022 (022) PAGE 1 Signed ReportCBC W/O [id number] 00:55:00 Test Item Value Reference Range Interpretation Comments WHITE BLOOD CELL (test code = 10.1 K/mm3 4.5-12.5 N WBC) RED BLOOD CELL (test code = 5.50 mill/mm3 3.7-5.2 H RBC) HEMOGLOBIN (test code = HGB) 15.8 gram/dL 11.5-15.5 H HEMATOCRIT (test code = HCT) 48.5 % 36.0-46.0 H MEAN CELL VOLUME (test code = 88.2 fL 80-98 N MCV) MEAN CELL HGB (test code = MCH) 28.7 picogram 27.0-33.0 N MEAN CELL HGB CONCETRATION 32.6 gram/dL 33.0-36.0 L (test code = MCHC) RED CELL DISTRIBUTION WIDTH 13.1 % 11.6-16.2 N (test code = RDW) PLATELET COUNT (test code = 300 K/mm3 150-450 N PLT) MEAN PLATELET VOLUME (test code 10.4 fL 6.7-11.0 N = MPV) URINALYSIS [id number] 00:49:00 Test Item Value Reference Range Interpretation Comments UA COLOR (test code = Light-Yellow YELLOW COLU) UA APPEARANCE (test Cloudy CLEAR A IS THE S AMPLE code = APPU) FROM ER OR L&D? Y IF THE ANSWER I S NO,PLEASE DOCUMENT TWO RN SIGNATURES HERE - Dorothea Hester.SP61 10/01/22 0048 UA GLUCOSE DIPSTICK NEGATIVE mg/dL NEGATIVE (test code = DGLUU) UA BILIRUBIN DIPSTICK NEGATIVE mg/dL NEGATIVE (test code = BILU) UA KETONE DIPSTICK NEGATIVE mg/dL NEGATIVE (test code = KETU) UA SPECIFIC GRAVITY 1.017 1.001-1.035 (test code = SGU) UA BLOOD DIPSTICK Negative mg/dL NEGATIVE (test code = BRYAN) UA PH DIPSTICK (test 6.5 5.0-8.0 code = SUYAPA) UA PROTEIN DIPSTICK NEGATIVE mg/dL NEGATIVE (test code = PROU) UA UROBILINIOGEN Normal mg/dL NEGATIVE DIPSTICK (test code = URO) UA NITRITE DIPSTICK NEGATIVE NEGATIVE (test code = SHUKRI) UA LEUKOCYTE ESTERASE NEGATIVE Norman/uL NEGATIVE W REFLEX (test code = LEUUR) UA WBC (test code = 0-5 per HPF 0-5 WBCU) UA RBC (test code = NONE SEEN #/HPF 0-5 RBCU) UA EPITHELIAL CELLS MANY per HPF FEW (test code = EPIU) UA BACTERIA (test NONE SEEN #/HPF NONE code = BACU) UA MUCUS (test code = FEW #/LPF FEW MUCU) Urine Source? Clean CatchHEPATIC FUNCTION [id number] 00:37:00 Test Item Value Reference Range Interpretation Comments TOTAL PROTEIN (test 7.6 gram/dL 6.4-8.2 N code = PROT) ALBUMIN (test code = 4.1 g/dL 3.4-5.0 N ALB) GLOBULIN (test code = 3.5 gram/dL 2.7-4.2 N GLOB) ALBUMIN/GLOBULIN RATIO 1.2 0.75-1.50 N (test code = A/G) BILIRUBIN TOTAL (test 0.70 mg/dL 0.0-1.0 N code = BILT) BILIRUBIN DIRECT (test 0.20 mg/dL 0.0-0.20 N code = BILD) SGOT/AST (test code = 17 IUnit/L 15-37 N AST) SGPT/ALT (test code = 10 IUnit/L 12-78 L ALT) ALKALINE PHOSPHATASE 74 IUnit/L 45-117 N Note change in TOTAL (test code = reference range due ALKP) to change in reagent. [id number] 00:37:00 Test Item Value Reference Range Interpretation Comments LIPASE (test code = LIP) 43 U/L 12.00-57.00 N HCG SERUM [id number] 00:37:00 Test Item Value Reference Range Interpretation Comments HCG SERUM QUAL (test NEGATIVE NEGATIVE This HC GQL test is NOT code = HCGQL) applicable for MALE patients.Check with nurse about probable order error.If Tumor Marker Test needed, nu rse should order test "HCG TU"(Test #550.96112)---- - COVID 19 Asymptomatic IH [id number] 00:37:00 Test Item Value Reference Range Interpretation Comments COVID 19 Asymptomatic IH AG (test NEGATIVE NEGATIVE code = COVNONPUIAG) INFLUENZA A B [id number] 00:37:00 Test Item Value Reference Range Interpretation Comments INFLUENZA A POC (test code = Negative Negative INFLAAG) INFLUENZA B POC (test code = Negative Negative INFLBAG) SOURCE: NASALBASIC METABOLIC [id number] 00:37:00 Test Item Value Reference Range Interpretation Comments SODIUM (test code = 140 mmol/L 136-145 N NA) POTASSIUM (test 3.6 mmol/L 3.5-5.1 N code = K) CHLORIDE (test code 106.0 mmol/L 98-107 N = CL) CARBON DIOXIDE 25.0 mmol/L 21-32 N (test code = CO2) ANION GAP (test 12.6 10-20 N code = GAP) GLUCOSE (test code 60 mg/dL 74-106 L = GLU) BLOOD UREA NITROGEN 6 mg/dL 7-18 L (test code = BUN) GLOMERULAR > 60 mL/min >=60 The Glomerular FILTRATION RATE Filtration R ate is a (test code = GFR) calculated parameterbased on serum Creatinin e, patient age and sex. GFR valuesless than 60 mL/min/1.73 squ are meters are kristyn cative ofChronic Kidne y Disease. Values less than 15 mL/min/1.73squa re meters indicate Kidney failure. The calculation for GFR is based on the CK D-EPI (2020) calculat ion. This formulais race indifferent and is the recommended for glen for GFRby the [facility] on for Adults.The GFR will not calculate i f the sex is unknown or if thepatient's ag e is <18 years. CREATININE (test 0.80 mg/dL 0.55-1.02 N Note pace ge in code = CREAT) reference rang e due to change in reage nt. BUN/CREATININE 7.8 10-20 L RATIO (test code = BUN/CREA) CALCIUM (test code 8.9 mg/dL 8.5-10.1 N = CA) AG STREP GROUP A (THROAT)2022-10-01 00:11:00 Test Item Value Reference Range Interpretation Comments AG STREP GROUP A (THROAT) (test code NEGATIVE NEGATIVE = STREPA) - CT ABD PELVIS [id number] 23:03:00 [facility])Name: JERI LOPEZ : 1980 Sex: F Name: JERI LOPEZ [facility] : 1980 Age/S: 42 / F [address] [facility] Unit #: [id number] Loc: [place] [address] Phys: Augustina Villalba MD Acct: [id number] Dis Date: Status: REG ER PHONE #: [phone] Exam Date: 08/26/20222252 FAX #: [phone] Reason: UPPER ABD PAIN EXAMS: CPT CODE: [id number] CT ABD PELVIS W/CONT [id number] EXAM: CT ABDOMEN/PELVIS WITH CONTRAST HISTORY: Pain TECHNIQUE: Helical imaging was performed diaphragm through the symphysis with multiplanar reformations obtained. IV CONTRAST: 100cc Omnipaque 300 GI CONTRAST: No DOSE: CT imaging performed atthis location utilizes radiation dose optimization technique which includes one or more of the follow in) Automated exposure control; 2) Adjustment of the mA and/or kV according to patient's size; 3) Use of iterative reconstruction techniques COMPARISON: None FINDINGS: Unless otherwise specified, incidental findings do not require dedicated imaging follow-up. LOWER CHEST: The visualized lung basesare clear. Visualized heart is unremarkable. SOLID ORGANS: No focal liver lesions. No intra or extrahepatic biliary ductal dilation. Cholecystectomy clips are noted. The spleen, pancreas, and adrenal glands are normal in appearance. Both kidneys demonstrate normal corticomedullary phase of enhancement. No renal/ureteral calculus, hydronephrosis, mass, or cyst is apparent. BOWEL: The small bowel and colon are normal in caliber without wall thickening. Appendix is not well visualized but there are nosecondary findings to suggest acute appendicitis. No signs of obstruction.] PERITONEUM: No free intraperitoneal fluid or air. RETROPERITONEUM: Normal caliber of the abdominal aorta is noted. No lymphade nopathy. PELVIS: The visualized urinary bladder wall is normal thickness. Organs of reproduction are unremarkable. MUSCULOSKELETAL: No acute osseous abnormality is seen. No destructive PAGE 1 Signed Report (CONTINUED) Name: JERI LOPEZH [place] : 1980 Age/S: 42 / F Jackelin Elam [facility] Unit #: [id number] Loc: [place] [address] Phys: Augustina Villalba MD Acct: [id number] Dis Date: Status: REG ER PHONE #: [phone] Exam Date: 08/26/20222252 FAX #: [phone] Reason: UPPER ABD PAIN EXAMS: CPT CODE: [id number] CT ABD PELVIS W/CONT 34737 (Continued) lytic or blastic osseous lesion is noted. SOFT TISSUES: No ventral abdominal hernia. No anasarca. IMPRESSION: No acute abnormality of the abdomen or pelvis. SL: [phone] at 2303 Reported and signed by: Cody Tai M.D. CC: Augustina Villalba MD Technologist:GOMEZ SAHNI, RT CTDI: DLP: Trnscb Date/Time: 08/26/2022 (2302) t.[email or web address].[email or web address] Orig Print D/T: S: 08/26/2022 (2306) PAGE 2 Signed ReportBASIC METABOLIC [id number] 22:38:00 Test Item Value Reference Range Interpretation Comments SODIUM (test code = 137 mmol/L 136-145 N NA) POTASSIUM (test 3.7 mmol/L 3.5-5.1 N code = K) CHLORIDE (test code 106.0 mmol/L 98-107 N = CL) CARBON DIOXIDE 23.0 mmol/L 21-32 N (test code = CO2) ANION GAP (test 11.7 10-20 N code = GAP) GLUCOSE (test code 105 mg/dL 74-106 N = GLU) BLOOD UREA NITROGEN 8 mg/dL 7-18 N (test code = BUN) GLOMERULAR > 60 mL/min See_Comment The Glomerular FILTRATION RATE Filtration R ate is a (test code = GFR) calculated parameterbased on serum Creatinin e, patient age and sex. GFR valuesless than 60 mL/min/1.73 squ are meters are kristyn cative ofChronic Kidne y Disease. Values less than 15 mL/min/1.73squa re meters indicate Kidney failure. The calculation for GFR is based on the CK D-EPI (2020) calculat ion. This formulais race indifferent and is the recommended for glen for GFRby the N atecu health Kid[facility] Foundati on for Adults.The GFR will not calculate i f the sex is unknown or if thepatient's ag e is <18 years. [Aut omated message] The sy stem which generated this result transmit pacheco reference range : >=60. The reference r romeo was not used to interpret this result as normal/abnor mal. CREATININE (test 0.60 mg/dL 0.55-1.02 N Note pace ge in code = CREAT) reference rang e due to change in reage nt. BUN/CREATININE 13.3 10-20 N RATIO (test code = BUN/CREA) CALCIUM (test code 7.9 mg/dL 8.5-10.1 L = CA) HEPATIC FUNCTION [id number] 22:38:00 Test Item Value Reference Range Interpretation Comments TOTAL PROTEIN (test 6.5 gram/dL 6.4-8.2 N code = PROT) ALBUMIN (test code = 3.4 g/dL 3.4-5.0 N ALB) GLOBULIN (test code = 3.1 gram/dL 2.7-4.2 N GLOB) ALBUMIN/GLOBULIN RATIO 1.1 0.75-1.50 N (test code = A/G) BILIRUBIN TOTAL (test 0.40 mg/dL 0.0-1.0 N code = BILT) BILIRUBIN DIRECT (test < 0.10 mg/dL 0.0-0.20 N code = BILD) SGOT/AST (test code = 21 IUnit/L 15-37 N AST) SGPT/ALT (test code = 17 IUnit/L 12-78 N ALT) ALKALINE PHOSPHATASE 80 IUnit/L 45-117 N Note change in TOTAL (test code = reference range due ALKP) to change in reagent. [id number] 22:38:00 Test Item Value Reference Range Interpretation Comments LIPASE (test code = LIP) 48 U/L 12.00-57.00 N HCG SERUM [id number] 22:38:00 Test Item Value Reference Range Interpretation Comments HCG SERUM QUAL (test NEGATIVE NEGATIVE This HC GQL test is NOT code = HCGQL) applicable for MALE patients.Check with nurse about probable order error.If Tumor Marker Test needed, nu rse should order test "HCG TU"(Test #[id number])---- - [id number] 22:38:00 Test Item Value Reference Range Interpretation Comments TROPONIN-HS (test <4.0 pg/mL 0-45 N CAUTION: U nits of the code = TROPI) current test m ethodology (pg/mL)differ f rom the prior test meth odology (ng/mL) by a fa ctorof 1000. CBC W/O [id number] 21:57:00 Test Item Value Reference Range Interpretation Comments WHITE BLOOD CELL (test code = 5.0 K/mm3 4.5-12.5 N WBC) RED BLOOD CELL (test code = 4.97 mill/mm3 3.7-5.2 N RBC) HEMOGLOBIN (test code = HGB) 14.1 gram/dL 11.5-15.5 N HEMATOCRIT (test code = HCT) 42.7 % 36.0-46.0 N MEAN CELL VOLUME (test code = 85.9 fL 80-98 N MCV) MEAN CELL HGB (test code = MCH) 28.4 picogram 27.0-33.0 N MEAN CELL HGB CONCETRATION 33.0 gram/dL 33.0-36.0 N (test code = MCHC) RED CELL DISTRIBUTION WIDTH 13.1 % 11.6-16.2 N (test code = RDW) PLATELET COUNT (test code = 230 K/mm3 150-450 N PLT) MEAN PLATELET VOLUME (test code 10.3 fL 6.7-11.0 N = MPV) URINALYSIS [id number] 21:54:00 Test Item Value Reference Range Interpretation Comments UA COLOR (test code = YELLOW YELLOW COLU) UA APPEARANCE (test CLEAR CLEAR IS THE S AMPLE code = APPU) FROM ER OR L&D? Y IF THE ANSWER I S NO,PLEASE DOCUMENT TWO RN SIGNATURES HERE - by SYED 08/26/22 5831 UA GLUCOSE DIPSTICK NEGATIVE mg/dL NEGATIVE (test code = DGLUU) UA BILIRUBIN DIPSTICK NEGATIVE mg/dL NEGATIVE (test code = BILU) UA KETONE DIPSTICK NEGATIVE mg/dL NEGATIVE (test code = KETU) UA SPECIFIC GRAVITY 1.021 1.001-1.035 (test code = SGU) UA BLOOD DIPSTICK 0.03 mg/dL NEGATIVE A (test code = BRYAN) (Trace) mg/dL UA PH DIPSTICK (test 5.5 5.0-8.0 code = SUYAPA) UA PROTEIN DIPSTICK NEGATIVE mg/dL NEGATIVE (test code = PROU) UA UROBILINIOGEN Normal mg/dL NEGATIVE DIPSTICK (test code = URO) UA NITRITE DIPSTICK NEGATIVE NEGATIVE (test code = SHUKRI) UA LEUKOCYTE ESTERASE NEGATIVE Norman/uL NEGATIVE W REFLEX (test code = LEUUR) UA WBC (test code = 0-5 per HPF 0-5 WBCU) UA RBC (test code = 0-2 #/HPF 0-5 RBCU) UA EPITHELIAL CELLS FEW per HPF FEW (test code = EPIU) UA BACTERIA (test NONE SEEN #/HPF NONE code = BACU) UA MUCUS (test code = FEW #/LPF FEW MUCU) Urine Source? Clean Catch- XR CHEST 1 [id number] 20:09:00 [facility]Name: JERI LOPEZ : 1980 Sex: F FAX: Augustina Ogden [phone] [place]: [address] St: PRE Name: JERI LOPEZ : 1980 Age/S: 42/F [address] Unit #: [id number] Loc: [place] [address] Phys: Moisés Villalba MD Acct: [id number] Dis Date: Status: PRE ER PHONE #: [phone] Exam Date: 08/26/20221999 FAX #: [phone] Reason: CHEST PAIN EXAMS: CPT CODE: [id number] XR CHEST 1 V 71163 REASON FOR EXAM:CHEST PAIN Exam Order Date: 08/26/2022 7:11 PM Ordering M.Emre: Augustina Villalba MD PROCEDURE: - XRCHEST 1 V COMPARISON: 07/04/2021 FINDINGS: Lines/Tubes: None The lungs are clear. There is no pleural effusion or pneumothorax. Pulmonary vascularity is within normal limits. Cardiomediastinal silhouette and mediastinal contours are unchanged when accounting for differences in technique. Musculoskeletal structures and visualized portions of the upper abdomen are also unchanged. IMPRESSION: No acute cardiopulmonary process. Location: at 2008 Reported and signed by: Cody Tai M.D. CC: Augustina Villalba MD Technologist: ALINA MARTINEZ; RT Ana(R Trnscrd Date/Time/By: 08/26/2022 (2008) : By: [email or web address] Orig PrintD/T: S: 08/26/2022 (2011) PAGE 1 Signed [id number] 20:26:5112 LEAD EKG FOR [facility] Test Date: 7443-96-88Qwz Name: JERI LOPEZ Department: 5520Patient ID: [id number] Room: Gender: F Gunner'S Mate: : 1980 Requested By: CORWIN GALLEGOS Order Number: [id number] Reading MD: Estelle Morales MeasurementsIntervals [place] Rate: 114 P: 78PR:132 QRS: 68QRSD: 78 T: 65QT: 305 QTc: 372 Interpretive StatementsSINUS TACHYCARDIAABNORMAL RHYTHM ECG Electronically Signed On 07-28-2022 11:44:05 LEGAL RESEARCH ANALYST [place] [address] LEAD [id number] 15:49:2312 LEAD EKG FOR [facility] Test Date: 3500-84-61Ldw Name: JERI LOPEZ Department: 4621Patient ID: [id number] Room: Gender: F Gunner'S Mate: [id number]: 1980 Requested By: SILVINA MALLOY Order Number: [id number] Reading MD: Estelle Morales MeasurementsIntervals [place] Rate: 82 P: 59PR: 156 QRS: 53QRSD: 80 T: 49QT: 352 QTc: 390 Interpretive StatementsSINUS RHYTHMElectronically Signed On 05-19-2022 16:04:50 [address] [facility] - 6 MINUTE WALK EXERCISE TEST - [id number] 14:38:18 Test Item Value Reference Range Interpretation Comments TEXT (test code = hchd.localdeptVIDataMGCO 3333) [id number] Summary Report With 75 Characters.txt [facility] [id number] 14:04:28 Test Item Value Reference Range Interpretation Comments TEXT (test code = hchd.localdeptVIDataMGCO 3333) [id number] Summary Report With 75 Characters.txt [facility] p24 Ag SerPl Ql [id number] 21:18:54 Test Item Value Reference Range Interpretation Comments HIV 1+2 Ab+HIV1 p24 Ag SerPl Ql [place] NEGATIVE Negative (test code = 23539-7) [facility] p24 Ag SerPl Ql [id number] 02:28:19 Test Item Value Reference Range Interpretation Comments HIV 1+2 Ab+HIV1 p24 Ag SerPl Ql [place] NEGATIVE Negative (test code = 89564-6) HHSPOCT GLUCOSE POC docked [id number] 23:01:15 Test Item Value Reference Range Interpretation Comments Glucose POC (test code = 51862143) 83 mg/dL 74-106 Lab Interpretation (test code = Normal 37923-5) Jose Roberto [place] [address] Lead [id number] 22:53:2912 LEAD EKG FOR [facility] Test Date: 6498-67-22Vwd Name: JERI LOPEZ Department: 5520Patient ID: [id number] Room: Gender: F Gunner'S Mate: [id number]: 1980 Requested By: SONA BROOKS Order Number: [id number] Reading MD: Amador Manuel MeasurementsIntervals [place] Rate: 107 P: 81PR: 144 QRS: 79QRSD: 79 T: 72QT: 325 QTc: 388 Interpretive Stat[address] TACHYCARDIANonspecific ST changes in Inferior LeadsPossible Right Atrial AbnormalityElectronically Signed On 03-21-2022 10:50:37 CDT by Amador Wray HealthURINALYSIS COMPLETE 2022-01-01 00:41:00 Test Item Value Reference Range Interpretation Comments UA COLOR (test code = Dark-Yellow YELLOW COLU) UA APPEARANCE (test Cloudy CLEAR A IS THE S AMPLE code = APPU) FROM ER OR L&D? Y IF THE ANSWER I S NO,PLEASE DOCUMENT TWO RN SIGNATURES HERE - by [id number] 01/01/22 0041 UA BILIRUBIN DIPSTICK NEGATIVE mg/dL NEGATIVE (test code = BILU) UA SPECIFIC GRAVITY 1.039 1.001-1.035 (test code = SGU) UA PH DIPSTICK (test 6.0 5.0-8.0 code = SUYAPA) UA UROBILINIOGEN 3.0 (1+) mg/dL NEGATIVE A DIPSTICK (test code = URO) UA NITRITE DIPSTICK NEGATIVE NEGATIVE (test code = SHUKRI) UA LEUKOCYTE ESTERASE 500 Norman/uL (3+) NEGATIVE A W REFLEX (test code = Norman/uL LEUUR) UA WBC (test code = >200 per HPF 0-5 A WBCU) UA RBC (test code = 101-150 #/HPF 0-5 RBCU) UA EPITHELIAL CELLS MOD per HPF FEW (test code = EPIU) UA BACTERIA (test FEW #/HPF NONE A code = BACU) UA GLUCOSE DIPSTICK NEGATIVE mg/dL NEGATIVE (test code = DGLUU) UA KETONE DIPSTICK NEGATIVE mg/dL NEGATIVE (test code = KETU) UA BLOOD DIPSTICK 0.03 mg/dL NEGATIVE A (test code = BRYAN) (Trace) mg/dL UA PROTEIN DIPSTICK 50 (1+) mg/dL NEGATIVE A (test code = PROU) UA CALCIUM OXALATE FEW #/HPF NONE A CRYSTALS (test code = CAOXU) UA MUCUS (test code = FEW #/LPF FEW MUCU) Urine Source? Clean CatchUR HCG [id number] 00:41:00 Test Item Value Reference Range Interpretation Comments UR HCG QUAL (test NEGATIVE This HCGQL test is NOT code = HCGQLU) applicable fo r MALE patients.Check with nurse about probable order error.If Tumor Marker Test needed, nu rse should order test "HCG TU"(Test #550.83575)---- - Urine Source? Clean CatchBASIC METABOLIC [id number] 14:25:00 Test Item Value Reference Range Interpretation Comments SODIUM (test code = 139 mmol/L 136-145 N NA) POTASSIUM (test code 3.8 mmol/L 3.5-5.1 N = K) CHLORIDE (test code 110.0 mmol/L 98-107 H = CL) CARBON DIOXIDE (test 21.0 mmol/L 21-32 N code = CO2) ANION GAP (test code 11.8 10-20 N = GAP) GLUCOSE (test code = 94 mg/dL 74-106 N GLU) BLOOD UREA NITROGEN 8 mg/dL 7-18 N (test code = BUN) GLOMERULAR > 60 mL/min See_Comment Estimated GFR b y FILTRATION RATE using Modifi ed MDRD (test code = GFR) formula.Ch ronic kidney disease is defined as eith er kidney damageor GFR <60 mL/min/1.73 m2 for >3 months. [Automated mess age] The system [employer] generated this result transmitted ref erence range: >=60. Th e reference range was not used to int erpret this result as normal/abnormal . CREATININE (test 0.80 mg/dL 0.55-1.02 N Note pace ge in code = CREAT) reference rang e due to change in reagent. BUN/CREATININE RATIO 10.7 10-20 N (test code = BUN/CREA) CALCIUM (test code = 9.3 mg/dL 8.5-10.1 N CA) HCG SERUM [id number] 14:25:00 Test Item Value Reference Range Interpretation Comments HCG SERUM QUAL (test NEGATIVE NEGATIVE This HC GQL test is NOT code = HCGQL) applicable for MALE patients.Check with nurse about probable order error.If Tumor Marker Test needed, nu rse should order test "HCG TU"(Test #550.57764)---- - [id number] 14:25:00 Test Item Value Reference Range Interpretation Comments TROPONIN-HS (test <4.0 pg/mL 0-45 N CAUTION: U nits of the code = TROPI) current test m ethodology (pg/mL)differ f rom the prior test meth odology (ng/mL) by a fa ctorof 1000. HEPATIC FUNCTION [id number] 14:24:00 Test Item Value Reference Range Interpretation Comments TOTAL PROTEIN (test 7.0 gram/dL 6.4-8.2 N code = PROT) ALBUMIN (test code = 4.4 g/dL 3.4-5.0 N ALB) GLOBULIN (test code = 2.6 gram/dL 2.7-4.2 L GLOB) ALBUMIN/GLOBULIN RATIO 1.7 0.75-1.50 H (test code = A/G) BILIRUBIN TOTAL (test 0.50 mg/dL 0.0-1.0 N code = BILT) BILIRUBIN DIRECT (test 0.20 mg/dL 0.0-0.20 N code = BILD) SGOT/AST (test code = 20 IUnit/L 15-37 N AST) SGPT/ALT (test code = 15 IUnit/L 12-78 N ALT) ALKALINE PHOSPHATASE 52 IUnit/L 45-117 N Note change in TOTAL (test code = reference range due ALKP) to change in reagent. [id number] 14:24:00 Test Item Value Reference Range Interpretation Comments LIPASE (test code = LIP) 31 U/L 12.00-57.00 N [id number] 14:11:00 Test Item Value Reference Range Interpretation Comments D-DIMER (test 233.00 ng/mLFEU 0-500 N Clinical Cu t-off value code = DDIMER) for D-Dimer i s 500 ng/mL FEU. Comment: T conrad [employer] D-Dim er assay is intended for use asan aid in the diag nosis of venous thromboe mbolism (VTE)[deep vein thrombosis (DVT ) or pulmonary embol ism (PE)].The measu rement of D-Dimer should not be used as an aid inthe diagnosis of VT E, in patient with: -Therapeutic do se anticoagulant t herapy for >24 hours -Fibr inolytic therapy within previous 7 days -Trauma or surgery within previous 4 weeks -Disseminated malignancies -A ortic aneurysm -Sepsi s, severe infections, pne umonia, severe skin inf ections -Liver cirrhosi s - CBC W/O [id number] 14:02:00 Test Item Value Reference Range Interpretation Comments WHITE BLOOD CELL (test code = 7.3 K/mm3 4.5-12.5 N WBC) RED BLOOD CELL (test code = 5.25 mill/mm3 3.7-5.2 H RBC) HEMOGLOBIN (test code = HGB) 15.3 gram/dL 11.5-15.5 N HEMATOCRIT (test code = HCT) 45.1 % 36.0-46.0 N MEAN CELL VOLUME (test code = 85.9 fL 80-98 N MCV) MEAN CELL HGB (test code = MCH) 29.1 picogram 27.0-33.0 N MEAN CELL HGB CONCETRATION 33.9 gram/dL 33.0-36.0 N (test code = MCHC) RED CELL DISTRIBUTION WIDTH 12.8 % 11.6-16.2 N (test code = RDW) PLATELET COUNT (test code = 286 K/mm3 150-450 N PLT) MEAN PLATELET VOLUME (test code 10.2 fL 6.7-11.0 N = MPV) - XR CHEST 1 [id number] 13:17:00 [facility])Name: JERI LOPEZ : 1980 Sex: F FAX: Augustina Ogden [phone] [place]: St: REG Name: JERI LOPEZ [facility] : 1980 Age/S: 40/F [address] [facility] Unit #: [id number] Loc: [place] [address] Phys: Augustina Villalba MD Acct: [id number] Dis Date: Status: REG ER PHONE #: [phone] Exam Date: 07/04/2021 1245 FAX#: [phone] Reason: CHEST PAIN EXAMS: CPT CODE: [id number] XR CHEST 1 V [id number] REASON FOR EXAM: CHEST PAIN Exam Order Date: 07/04/2021 12:22 PM Ordering MRyan: Augustina Villalba MD PROCEDURE: - XR CHEST 1 V COMPARISON: Chest x-ray June 20, 2021 FINDINGS: The lungs are clear. There is no pleural effusion or pneumothorax. Pulmonary vascularity is within normal limits. Cardiomediastinal silhouette is normal in size for technique. The mediastinal contours are within normal limits. Musculoskeletal structures are within normal limits. The visualized upper abdomen is within normal limits. IMPRESSION:No acute cardiopulmonary process. Location: [facility] at 1317 Reported and signed by: Elijah Rothman MD CC: Augustina Villalba MD Technologist: Radha RT(R) Trnscrd Date/Time/By: 07/04/2021 (8271) : By: [email or web address] Orig Print D/T: S: 07/04/2021 (9125) PAGE 1 Signed ReportURINALYSIS [id number] 13:00:00 Test Item Value Reference Range Interpretation Comments UA COLOR (test code = YELLOW YELLOW COLU) UA APPEARANCE (test CLEAR CLEAR IS THE S AMPLE code = APPU) FROM ER OR L&D? Y IF THE ANSWER I S NO,PLEASE DOCUMENT TWO RN SIGNATURES HERE - by V.LAB.HW1 07/04/21 1239 UA GLUCOSE DIPSTICK NEGATIVE mg/dL NEGATIVE (test code = DGLUU) UA BILIRUBIN DIPSTICK NEGATIVE mg/dL NEGATIVE (test code = BILU) UA KETONE DIPSTICK 10 (1+) mg/dL NEGATIVE A (test code = KETU) UA SPECIFIC GRAVITY 1.033 1.001-1.035 (test code = SGU) UA BLOOD DIPSTICK Negative mg/dL NEGATIVE (test code = BRYAN) UA PH DIPSTICK (test 6.5 5.0-8.0 code = SUYAPA) UA PROTEIN DIPSTICK 30 (1+) mg/dL NEGATIVE A (test code = PROU) UA UROBILINIOGEN 2.0 (1+) mg/dL NEGATIVE A DIPSTICK (test code = URO) UA NITRITE DIPSTICK NEGATIVE NEGATIVE (test code = SHUKRI) UA LEUKOCYTE ESTERASE 75 Norman/uL (1+) NEGATIVE A W REFLEX (test code = Norman/uL LEUUR) UA WBC (test code = 6-10 per HPF 0-5 A WBCU) UA RBC (test code = 3-5 #/HPF 0-5 RBCU) UA EPITHELIAL CELLS FEW per HPF FEW (test code = EPIU) UA BACTERIA (test FEW #/HPF NONE A code = BACU) UA MUCUS (test code = MODERATE #/LPF FEW A MUCU) Urine Source? CatheterDRUGS OF ABUSE SCREEN [id number] 13:00:00 Test Item Value Reference Range Interpretation Comments URN COCAINE (test code = NEGATIVE See_Comment [A utomated message] COCAURN) The system [employer] generated this result transmitted ref erence range: <300 ng/ mL. The reference r romeo was not used to interpret this result as normal/abnor mal. URN CANNABINOIDS (test NEGATIVE See_Comment [Aut omated message] code = CANNABURN) The system which generated this result transmitted ref erence range: <50 ng/m L. The reference range was not used to int erpret this result as normal/abnormal . URN AMPHETAMINE (test POSITIVE See_Comment [Auto mated message] code = AMPHETURN) The system which generated this result transmitted ref erence range: <1000 ng /mL. The reference r romeo was not used to interpret this result as normal/abnor mal. URN BARBITURATE (test NEGATIVE See_Comment [Auto mated message] code = BARBITURN) The system which generated this result transmitted ref erence range: <200 ng/ mL. The reference r romeo was not used to interpret this result as normal/abnor mal. URN BENZODIAZEPINE (test NEGATIVE See_Comment [A utomated message] code = BENZOURN) The system which generated this result transmitted ref erence range: <200 ng/ mL. The reference r romeo was not used to interpret this result as normal/abnor mal. URN OPIATES (test code = NEGATIVE See_Comment [A utomated message] OPIATURN) The system [employer] generated this result transmitted ref erence range: <300 ng/ mL. The reference r romeo was not used to interpret this result as normal/abnor mal. URN PHENCYCLIDINE (PCP) NEGATIVE See_Comment [Au tomated message] (test code = PHENCURN) The s ystem which generated this result transmitted ref erence range: <25 ng/m L. The reference range was not used to int erpret this result as normal/abnormal . URN METHADONE (test code NEGATIVE See_Comment [A utomated message] = METHAURN) The system [employer] generated this result transmitted ref erence range: <300 ng/ mL. The reference r romeo was not used to interpret this result as normal/abnor mal. Urine Source? CatheterCOVID 19 INHOUSE [id number] 13:00:00 Test Item Value Reference Range Interpretation Comments COVID 19 INHOUSE AG (test code = NEGATIVE NEGATIVE [id number]) STREPTOCOCCUS PCR [id number] 09:15:00 Test Item Value Reference Range Interpretation Comments STREPTOCOCCUS DYSGALACTIAE NEGATIVE FOR G/C NEGATIVE (test code = STREPGC) STREPA MOLECULAR (test NEGATIVE FOR GRP A NEGATIVE code = STREPAMOL) COVID 19 INHOUSE [id number] 23:30:00 Test Item Value Reference Range Interpretation Comments COVID 19 INHOUSE AG (test code = NEGATIVE NEGATIVE [id number]) - XR CHEST 1 [id number] 23:26:00 [facility] 1980 Sex: F FAX: Adonay Palma APRN [phone] [place]: [address]: REG Name: JERI LOPEZ [facility] : 1980Age/S: 40/F Jackelin Linaresncer y Unit #: [id number] Loc: [place] [address] Phys: Adonay Franz Acct: [id number] Dis Date: Status: REG ER PHONE #: [phone] Exam Date: 06/20/2021 232 FAX #: [phone] Reason: cough w/ pain. PUI EXAMS: CPT CODE: [id number] XR CHEST 1 V [id number] EXAMINATION: - XR CHEST 1 V LOCATION: H61 INDICATION/CLINICAL HISTORY: cough w/ pain. PUI COMPARISON: Chest x-ray 04/28/2021 TECHNIQUE: AP view of the chest. FINDINGS: Lines/device:None. Cardiomediastinal silhouette: Normal. Pulmonary vasculature: Not congested. Lungs/pleura: No consolidation, pneumothorax orpleural effusion. Upper abdomen: Unremarkable. Regional osseous structures: Intact. IMPRESSION: No acute cardiopulmonary findings. at 2326 Reported and signed by: Maru Valente M.D. CC: Adonay Franz Technologist: RT OLGA(R) Trnheather Date/Time/By: 06/20/2021 (2378) : By: [email or web address] Orig Print D/T: S: 06/20/2021 (4633) PAGE 1 Signed ReportTROP-I HIGH SENSITIVITY 2021-04-28 17:06:00 Test Item Value Reference Range Interpretation Comments TROP-I HIGH < 3 ng/L 0-34 N CAUTION: Units of the SENSITIVITY (test current te st methodology code = TROPIHS) (ng/L) diffe rfrom the prior test meth odology (ng/mL) by a fa ctor of 1000. 99t h Percentile Uppe r Reference Limit (URL): Fe males: 34 ng/LMales: 54 n g/L In order to distin guish acute elevations of h igh sensitivitytrop onin from other clinical conditions, the FourthUnive rsal Definition of M yocardial Infarction stressesclinica l assessment and the demonstration o f a rise and/orfall in s erial troponin result s above the URL. These resu lts were obtained using Siemens AtellZAP IM TnI Hreagent. Results from di fferent methodologies s hould not becompared to o ne another as quantitative results and URLs mayvar y by method. [id number] 16:06:00 Test Item Value Reference Range Interpretation Comments LITHIUM (test code = LITH) 0.3 mmol/L 1.0-1.20 L COMPREHENSIVE METABOLIC [id number] 15:56:00 Test Item Value Reference Range Interpretation Comments SODIUM (test code = NA) 140 mEq/L 134-147 N POTASSIUM (test code = 3.6 mEq/L 3.4-5.0 N K) CHLORIDE (test code = 106 mEq/L 100-108 N CL) CARBON DIOXIDE (test 24 mEq/l 21-33 N code = CO2) ANION GAP (test code = 13 0-20 N GAP) GLUCOSE (test code = 79 mg/dL 70-110 N GLU) BLOOD UREA NITROGEN 7 mg/dL 7-18 N (test code = BUN) GLOMERULAR FILTRATION 70.1 105-110 L Units of measure = RATE (test code = GFR) ml/mi n/1.73 m2 CREATININE (test code = 0.9 mg/dL 0.6-1.3 N CREAT) TOTAL PROTEIN (test 7.3 g/dL 6.4-8.2 N code = PROT) ALBUMIN (test code = 3.90 g/dL 3.4-5.0 N ALB) CALCIUM (test code = 9.0 mg/dL 8.0-10.5 N CA) BILIRUBIN TOTAL (test 0.50 mg/dL 0.0-1.0 N code = BILT) SGOT/AST (test code = 18 IUnit/L 15-37 N AST) SGPT/ALT (test code = 10 IUnit/L 30-65 L ALT) ALKALINE PHOSPHATASE 67 IUnit/L 20-125 N TOTAL (test code = ALKP) [id number] 15:56:00 Test Item Value Reference Range Interpretation Comments MAGNESIUM (test code = MAG) 1.78 mg/dL 1.80-2.40 L CBC W/AUTO [id number] 15:41:00 Test Item Value Reference Range Interpretation Comments WHITE BLOOD CELL (test code = 8.7 x10 3/uL 4.5-11.0 N WBC) RED BLOOD CELL (test code = 5.06 x10 6/uL 3.54-5.02 H RBC) HEMOGLOBIN (test code = HGB) 15.5 g/dL 11.0-15.0 H HEMATOCRIT (test code = HCT) 45.5 % 33.0-45.0 H MEAN CELL VOLUME (test code = 89.9 fL 81.0-99.0 N MCV) MEAN CELL HGB (test code = MCH) 30.6 pg 27.0-33.0 N MEAN CELL HGB CONCETRATION 34.1 g/dL 33.0-37.0 N (test code = MCHC) RED CELL DISTRIBUTION WIDTH CV 12.3 % 11.5-14.5 N (test code = RDW) PLATELET COUNT (test code = 282 x10 3/uL 150-400 N PLT) NEUTROPHIL % (test code = NT%) 56.4 % 56.0-77.0 N LYMPHOCYTE % (test code = LY%) 32.3 % 14.0-32.0 H NEUTROPHIL # (test code = NT#) 4.88 x10 3/uL 2.0-7.6 N LYMPHOCYTE # (test code = LY#) 2.79 x10 3/uL 1.0-3.8 N MANUAL DIFF REQUIRED (test code NO = MDIFF) RED CELL DISTRIBUTION WIDTH SD 40.6 fL 37.0-54.0 N (test code = RDW-SD) MEAN PLATELET VOLUME (test code 10.3 fL 7.0-9.0 H = MPV) IMMATURE GRANULOCYTE % (test 0.6 % 0.0-2.0 N code = IG%) MONOCYTE % (test code = MO%) 6.2 % 4.8-9.0 N EOSINOPHIL % (test code = EO%) 3.7 % 0.3-3.7 N BASOPHIL % (test code = BA%) 0.8 % 0.0-2.0 N NUCLEATED RBC % (test code = 0.0 % 0-0 N NRBC%) IMMATURE GRANULOCYTE # (test 0.05 x10 3/uL 0.00-0.03 H code = IG#) MONOCYTE # (test code = MO#) 0.54 x10 3/uL 0.1-0.8 N EOSINOPHIL # (test code = EO#) 0.32 x10 3/uL 0.0-0.2 H BASOPHIL # (test code = BA#) 0.07 x10 3/uL 0.0-0.2 N NUCLEATED RBC # (test code = 0.00 x10 3/uL 0.0-0.1 N NRBC#) - CT ANGIO [id number] 00:00:00 [facility] 1980 Sex: F Name: JERI LOPEZ [facility] : 1980 Age/S: 40 / F [address] [place] [address] Blvd Unit #:[id number] Loc: [place] [address] Phys: Glo Norris MD Acct: [id number] Dis Date: Status: REG ER PHONE #: [phone] Exam Date: 04/28/2021 1611 FAX #: [phone] Reason: ACUTE ROWE NECK PAIN W/ VISION EXAMS: CPT CODE: [id number] CT ANGIO NECK 12209 PROCEDURE INFORMATION: Exam: CT Angiography Head With Contrast, Arteriography Exam date and time: 04/28/2021 3:45 PM Age: 40 years old Clinical indication: Visual disturbance; Additional info: Acute ROWE neck pain w/ vision TECHNIQUE: Imaging protocol: Computed tomography angiography of the head with contrast. Exam focused on the arteries. 3D rendering (Not supervised by radiologist): MIP and/or 3D reconstructed images were created by the technologist.Radiation optimization: All CT scans at this facility use at least one of these dose optimization techniques: automated exposure control; mA and/or kV adjustment per patient size (includes targeted exams where dose is matched to clinical indication); or iterative reconstruction. Contrast material: CAE285; Contrast volume: 100 ml; Contrast route: INTRAVENOUS (IV); COMPARISON: CT HEAD/BRAIN W/O CONT 04/28/2021 3:40 PM FINDINGS: ANTERIOR CIRCULATION: Right internal carotid artery: Unremarkable. Intracranial segment is patent with no significant stenosis. Right middle cerebral artery: Unremarkable. No occlusion or significant stenosis. Right anterior cerebral artery: Unremarkable. No occlusion or significant stenosis. Left internal carotid artery: Unremarkable. Intracranial segment is patent with no significant stenosis. Left middle cerebral artery: Unremarkable. No occlusion or significant stenosis. Left anterior cerebral artery: Unremarkable. No occlusion or significant stenosis. POSTERIOR CIRCULATION: Right vertebral artery: Unremarkable. No occlusion or significant stenosis. Left vertebral thomas ry: Unremarkable. No occlusion or significant stenosis. Basilar artery: Unremarkable. No occlusion or significant stenosis. Right posterior cerebral artery: Unremarkable. No occlusion or significant stenosis. Left posterior cerebral artery: Unremarkable. No occlusion or significant stenosis. PAGE 1 Sig candy Report (CONTINUED) Name: JERI LOPEZ [facility] : 1980 Age/S: 40 / F [address] [place] [address] Blvd Unit #: [id number] Loc: [place] [address] Phys: Glo Norris MD Acct: [id number] DisDate: Status: REG ER PHONE #: [phone] Exam Date: 04/28/2021 1611 FAX #: [phone] Reason: ACUTE ROWE NECK PAIN W/ VISION EXAMS: CPT CODE: [id number] CT ANGIO NECK 86595 <Continued> Brain: No definite mass, mass effect, or midline shift. Cerebral ventricles: No ventriculomegaly. Bones/joints: Unremarkable. No acute fracture. Soft tissues: Unremarkable. PROCEDURE IN FORMATION: Exam: CT Angiography Neck With Contrast Exam date and time: 04/28/2021 3:45 PM Age: 40 years old Clinical indication: Visual disturbance; Additional info: Acute ROWE neck pain w/ vision TECHNIQUE: Imaging protocol: Computed tomography angiography of the neck with contrast. 3D rendering (Not supervised by radiologist): MIP and/or 3D reconstructed images were created by the technologist. Radiation optimization: All CT scans at this facility use at least one of these dose optimization techniques: automated exposure control; mA and/or kV adjustment per patient size (includes targeted exams where dose is matched to clinical indication); or iterative reconstruction. Contrast material: ISO 370; Contrast volume: 100 ml; Contrast route: INTRAVENOUS (IV); COMPARISON: CT HEAD/BRAIN W/O CONT 04/28/2021 3:40 PM FINDINGS: Right common carotid artery: No stenosis. No dissection or occlusion. Right internal carotid artery: No stenosis of the extracranial segment. No dissection or occlusion. Right external carotid artery: No occlusion or stenosis of the origin. Left common carotid artery: No stenosis. No dissection or occlusion. Left internal carotid artery: No stenosis of the extracranial segment. Nodissection or occlusion. Left external carotid artery: No occlusion or stenosis of the origin. Rightvertebral artery: No stenosis. No dissection or occlusion. Left vertebral artery: No stenosis. No dissection or occlusion. Soft tissues: Normal. No significant soft tissue swelling. Bones/joints: No acute fracture. REFERENCES: NASCET CRITERIA. The degree of internal carotid artery stenosis is PAGE 2 Signed Report (CONTINUED) Name: JERI LOPEZ [facility] : 1980 Age/S: 40 / F [address] [place] [address] Blvd Unit #: [id number] Loc: [place] [address] Phys: Glo Norris MD Acct: [id number] Dis Date: Status: REG ER PHONE #: [phone] Exam Date: 04/28/2021 1611 FAX #: [phone] Reason:ACUTE ROWE NECK PAIN W/ VISION EXAMS: CPT CODE: [id number] CT ANGIO NECK 99193 <Continued> basedon NASCET criteria. Normal is no stenosis. Mild is less than 50% stenosis. Moderate is 50-69% stenosis. Severe is 70% to 99% stenosis. Total occlusion is no detectable patent lumen. IMPRESSION: CT Angiography Head With Contrast, Arteriography No proximal occlusion in the [place]. CT Angiography Neck With Contrast No hemodynamically significant stenosis in the neck. at 1620 Reported and signed by: Alex Penny CC: Glo Norris MD Technologist:Marycarmen Apodaca, RT(R); ... CTDI: DLP: Trnscb Date/Time: 04/28/2021 (1619) [email or web address] Orig Print D/T: S: 04/28/2021 (1619) PAGE 3 Signed Report- XR CHEST 2 V 2021-04-28 00:00:00 [facility] 1980 Sex: F FAX: Glo Burch MD [phone] [place]: St: REG Name: JERI LOPEZ [facility] : 1980 Age/S: 40/F [address] [place] [address] Unit #: [id number] Loc: [place] [address] Phys: Glo Norris MD Acct: [id number] Dis Date: Status: REG ER PHONE #: [phone] Exam Date: 04/28/20211609 FAX #: [phone] Reason: chest tightness EXAMS: CPT CODE: [id number] XR CHEST 2 V 38202 PROCEDURE INFORMATION: Exam: XR Chest Exam date and time: 04/28/2021 4:09 PM Age: 40 years old Clinical indication: Other: Chesttightness TECHNIQUE: Imaging protocol: XR of the chest. Views: 2 views. PA and Lateral COMPARISON: CTA NECK 04/28/2021 3:45 PM FINDINGS: Lungs: There are normal lung volumes without consolidation or inte rstitial oppacities. Pleural spaces: Unremarkable. No pleural effusion. No pneumothorax. Heart/Mediastinum: Heart size is within normal limits. Bones/joints: No acute abnormality seen. IMPRESSION: No acute cardiopulmonary findings at 1632 Reported and signed by: Maira Oewns M.D. CC: Glo Norris MD Technologist: RT Valencia(R) Trnscrd Date/Time/By: 04/28/2021 (1631) : By: [email or web address] Orig Print D/T: S: 04/28/2021 (1631) PAGE 1 Signed Report- CT ANGIO [id number] 00:00:00 [facility] 1980 Sex: F Name: JERI LOPEZ [facility] : 1980 Age/S: 40 / F [address] [place] [address] Unit #: [id number] Loc: [place] [address] Phys: Glo Norris MD Acct: [id number] Dis Date: Status: REG ER PHONE #: [phone] Exam Date: 04/28/2021 1542 FAX #: [phone] Reason: acute ROWE neck pain w/vision changes EXAMS: CPT CODE: [id number] CT ANGIO HEAD 13250 PROCEDURE INFORMATION: Exam: CT AngiographyHead With Contrast, Arteriography Exam date and time: 04/28/2021 3:45 PM Age: 40 years old Clinical indication: Visual disturbance; Additional info: Acute ROWE neck pain w/ vision TECHNIQUE: Imaging protocol: Computed tomography angiography of the head with contrast. Exam focused on the arteries. 3D rende ring (Not supervised by radiologist): MIP and/or 3D reconstructed images were created by the technologist. Radiation optimization: All CT scans at this facility use at least one of these dose optimization techniques: automated exposure control; mA and/or kV adjustment per patient size (includes targeted exams where dose is matched to clinical indication); or iterative reconstruction. Contrast material: ISO 370; Contrast volume: 100 ml; Contrast route: INTRAVENOUS (IV); COMPARISON: CT HEAD/BRAIN W/O CONT 04/28/2021 3:40 PM FINDINGS: ANTERIOR CIRCULATION: Right internal carotid artery: Unremarkable. In tracranial segment is patent with no significant stenosis. Right middle cerebral artery: Unremarkable. No occlusion or significant stenosis. Right anterior cerebral artery: Unremarkable. No occlusion or significant stenosis. Left internal carotid artery: Unremarkable. Intracranial segment is patent with no significant stenosis. Left middle cerebral artery: Unremarkable. No occlusion or significant stenosis. Left anterior cerebral artery: Unremarkable. No occlusion or significant stenosis. POSTERIOR CIRCULATION: Right vertebral artery: Unremarkable. No occlusion or significant stenosis. Left vertebral artery: Unremarkable. No occlusion or significant stenosis. Basilar artery: Unremarkable. No occlusion or significant stenosis. Right posterior cerebral artery: Unremarkable. No occlusion or significant stenosis. Left posterior cerebral artery: Unremarkable. No occlusion or significant stenosis. PAGE 1 Signed Report (CONTINUED) Name: JERI LOPEZ [facility] : 1980 Age/S: 40 / F[address] [facility] [address] Unit #: [id number] Loc: [place] [address] Phys: Glo Norris MD Acct: [id number] Dis Date: Status: REG ER PHONE #: [phone] Exam Date: 04/28/2021 1542 FAX #: [phone] Reason: acute ROWE neck pain w/vision changes EXAMS: CPT CODE: [id number] CT ANGIO HEAD 48499 <Continued> Brain: No definite mass, mass effect, or midline shift. Cerebral ventricles: No ventriculomegaly. Bones/joints: Unremarkable. No acute fracture. Soft tissues: Unremarkable. PROCEDURE INFORMATION: Exam: CT Angiography Neck With Contrast Exam date and time: 04/28/2021 3:45PM Age: 40 years old Clinical indication: Visual disturbance; Additional info: Acute RWOE neck pain w/vision TECHNIQUE: Imaging protocol: Computed tomography angiography of the neck with contrast. 3D rendering (Not supervised by radiologist): MIP and/or 3D reconstructed images were created by the technologist. Radiation optimization: All CT scans at this facility use at least one of these dose optimization techniques: automated exposure control; mA and/or kV adjustment per patient size (includes targeted exams where dose is matched to clinical indication); or iterative reconstruction. Contrast material: ISO 370; Contrast volume: 100 ml; Contrast route: INTRAVENOUS (IV); COMPARISON: CT HEAD/BRAIN W/O CONT 04/28/2021 3:40 PM FINDINGS: Right common carotid artery: No stenosis. No dissection or occlusion. Right internal carotid artery: No stenosis of the extracranial segment. No dissection or occlusion. Right external carotid artery: No occlusion or stenosis of the origin. Left common carotid artery: No stenosis. No dissection or occlusion. Left internal carotid artery: No stenosis of the extracranial segment. No dissection or occlusion. Left external carotid artery: No occlusion or stenosis of the origin. Right vertebral artery: No stenosis. No dissection or occlusion. Left vertebral artery: No s tenosis. No dissection or occlusion. Soft tissues: Normal. No significant soft tissue swelling. Bones/joints: No acute fracture. REFERENCES: NASCET CRITERIA. The degree of internal carotid artery stenosis is PAGE 2 Signed Report (CONTINUED) Name: JERI LOPEZ [facility] : 1980 Age/S: 40 / F [address] [place] [address] Blvd Unit #: [id number] Loc: [place] [address] Phys: Glo Norris MD Acct: [id number] Dis Date: Status: REG ER PHONE #: [phone] Exam Date: 04/28/2021 1542 FAX #: [phone] Reason: acute ROWE neck pain w/vision changes EXAMS: CPT CODE: [id number] CT ANGIO HEAD 32503 <C ontinued> based on NASCET criteria. Normal is no stenosis. Mild is less than 50% stenosis. Moderate is 50-69% stenosis. Severe is 70% to 99% stenosis. Total occlusion is no detectable patent lumen. IMPRESSION: CT Angiography Head With Contrast, Arteriography No proximal occlusion in the [place]. CT Angiography Neck With Contrast No hemodynamically significant stenosis in the neck. at 1620 Reported and signed by: Tony Adams M.D. CC: Glo Norris MD Technologist:Marycarmen Apodaca, RT(R) CTDI: DLP: Trnscb Date/Time: 04/28/2021 (1619) [email or web address] Orig Print D/T: S: 04/28/2021 (1619) PAGE 3 Signed Report- CT HEAD/BRAIN W/O [id number] 00:00:00 [facility] 1980 Sex: F Name: JERI LOPEZ [facility] : 1980 Age/S: 40 / F [address] [place] [address] Bl Unit #:[id number] Loc: [place] [address] Phys: Glo Norris MD Acct: [id number] Dis Date: Status: REG ER PHONE #: [phone] Exam Date: 04/28/2021 1542 FAX #: [phone] Reason: ROWE VISION CHANGES EXAMS:CPT CODE: [id number] CT HEAD/BRAIN W/O CONT 43449 PROCEDURE INFORMATION: Exam: CT Head Without Contrast Exam date and time: 04/28/2021 3:40 PM Age: 40 years old Clinical indication: Pain; Headache; Additional info: ROWE vision changes TECHNIQUE: Imaging protocol: Computed tomography of the head without contrast. Radiation optimization: All CT scans at this facility use at least one of these dose optimization techniques: automated exposure control; mA and/or kV adjustment per patient size (includes targeted exams where dose is matched to clinical indication); or iterative reconstruction. COMPARISON: No relevant prior studies available. FINDINGS: Brain: Cerebellar tonsils are slightly low-lying. No hemorrhage. Unremarkable white matter. No mass effect. Cerebral ventricles: No ventriculomegaly. Paranasal sinuses: Visualized sinuses are unremarkable. No fluid levels. Mastoid air cells: Visualized mastoid air cells are well aerated. Bones/joints: Unremarkable. No acute fracture. Soft tissues: Unremarkable. IMPRESSION: No acute intracranial abnormality. Electronically Signed by Alex Nelson on04/28/2021 at 1624 Reported and signed by: Carmelo Nelson M.D. CC: Glo Norris MD Technologist:Marycarmen Apodaca, RT(R) CTDI: DLP: Trnscb Date/Time: 04/28/2021 (1624) [email or web address] Orig Print D/T: S: 04/28/2021 (4013) PAGE 1 Signed ReportNeisseria gonorrhoeae DNA [id number] 15:35:00 Test Item Value Reference Range Interpretation Comments Neisseria gonorrhoeae DNA probe Negative Negative (test code = 33084-2) [facility] [id number] 15:35:00 Test Item Value Reference Range Interpretation Comments chlamydia DNA probe (test code = Negative Negative 71871-9) [facility] ratio, [id number] 11:31:00 Test Item Value Reference Range Interpretation Comments albumin/globulin ratio, 1.8 (unknown unit) 1.2-2.2 serum (test code = 1759-0) [facility], [id number] 11:31:00 Test Item Value Reference Range Interpretation Comments globulin, serum (test code 2.5 (unknown unit) 1.5-4.5 = 2336-6) [facility], gcnza7627-24-23 11:31:00 Test Item Value Reference Range Interpretation Comments albumin, serum (test code = 1751-7) 4.4 g/dL 3.8-4.8 [facility] Healthprotein, total, [id number] 11:31:00 Test Item Value Reference Range Interpretation Comments protein, total, serum (test code = 6.9 g/dL 6.0-8.5 2885-2) [facility]calcium, ktrpa1518-34-95 11:31:00 Test Item Value Reference Range Interpretation Comments calcium, serum (test code = 1999-8) 9.5 mg/dL 8.7-10.2 [facility]carbon dioxide, venous [id number] 11:31:00 Test Item Value Reference Range Interpretation Comments carbon dioxide, venous blood (test 21 mmol/L code = 2027-1) [facility]chloride, [id number] 11:31:00 Test Item Value Reference Range Interpretation Comments chloride, serum (test code = 104 mmol/L 96-106 5-0) [facility]potassium, odduy8449-02-43 11:31:00 Test Item Value Reference Range Interpretation Comments potassium, serum (test code = 4.6 mmol/L 3.5-5.2 2823-3) [facility]alsodium, djwwr5711-86-67 11:31:00 Test Item Value Reference Range Interpretation Comments sodium, serum (test code = 2951-2) 140 mmol/L 134-144 [facility]urea nitrogen/creatinine ratio, vnkqo3728-91-38 11:31:00 Test Item Value Reference Range Interpretation Comments urea nitrogen/creatinine 9 (unknown unit) 9-23 ratio, serum (test code = 3097-3) [facility] HealtheGFR if Ijsbawvf3706-82-89 11:31:00 Test Item Value Reference Range Interpretation Comments eGFR if 115 mL/min/{1.73 m2} >59 (test code = 03850-3) [facility] HospitalEstimated Glomerular Filtration Rate (calc)2021-03-26 11:31:00 Test Item Value Reference Range Interpretation Comments Estimated Glomerular 100 mL/min/{1.73 m2} >59 Filtration Rate (calc) (test code = 28759-1) [facility]creatinine, [id number] 11:31:00 Test Item Value Reference Range Interpretation Comments creatinine, serum (test code = 0.76 mg/dL 0.57-1.00 2160-0) [facility] nitrogen, [id number] 11:31:00 Test Item Value Reference Range Interpretation Comments urea nitrogen, blood (test code = 7 mg/dL 6-20 3094-0) [facility]blood glucose, vjbsfg9900-16-09 11:31:00 Test Item Value Reference Range Interpretation Comments blood glucose, random (test code = 85 mg/dL 65-99 2339-0) [facility] Hospitalimmature granulocytes, percentage of total cells, blood 2021-03-26 11:31:00 Test Item Value Reference Range Interpretation Comments immature granulocytes, percentage of 1 % total cells, blood (test code = 06646-5) [facility]basophil count, xpjpjfjq8517-24-02 11:31:00 Test Item Value Reference Range Interpretation Comments basophil count, absolute (test 0.1 x10E3/uL 0.0-0.2 code = 53620-1) [facility] HospitalEosinophil Absolute Aefml7929-55-12 11:31:00 Test Item Value Reference Range Interpretation Comments Eosinophil Absolute Count (test 0.4 X10E3/UL 0.0-0.4 code = 18338-5) [facility] Hospitalmonocyte count, blood, mhdrqxosu4724-35-29 11:31:00 Test Item Value Reference Range Interpretation Comments monocyte count, blood, automated 0.3 X10E3/UL 0.1-0.9 (test code = 742-7) [facility]allymphocyte count, blood, suexcjcba6217-44-79 11:31:00 Test Item Value Reference Range Interpretation Comments lymphocyte count, blood, 1.8 X10E3/UL 0.7-3.1 automated (test code = 731-0) [facility] HospitalAbsolute Rjcuyblzpdp0065-23-58 11:31:00 Test Item Value Reference Range Interpretation Comments Absolute Neutrophils (test code 5.5 X10E3/UL 1.4-7.0 = 18170-8) [facility]basophils as percent of blood sixcxqplhb8543-34-05 11:31:00 Test Item Value Reference Range Interpretation Comments basophils as percent of blood 1 % leukocytes (test code = 707-0) [facility] Healtheosinophils as percent of blood waopillzjw1171-69-36 11:31:00 Test Item Value Reference Range Interpretation Comments eosinophils as percent of blood 5 % leukocytes (test code = 713-8) [facility] Healthmonocytes as percent of blood krqyuzwwcu5425-35-87 11:31:00 Test Item Value Reference Range Interpretation Comments monocytes as percent of blood 4 % leukocytes (test code = 5905-5) [facility]allymphocytes as percent of blood gkzdzmttqv9068-21-66 11:31:00 Test Item Value Reference Range Interpretation Comments lymphocytes as percent of blood 22 % leukocytes (test code = 736-9) [facility] Hospitalneutrophils as percent of blood dvhpunxirh5292-68-95 11:31:00 Test Item Value Reference Range Interpretation Comments neutrophils as percent of blood 67 % leukocytes (test code = 770-8) [facility] Hospitalplatelet ytzqi9758-11-18 11:31:00 Test Item Value Reference Range Interpretation Comments platelet count (test code = 199 X10E3/UL 150-450 777-3) [facility] Hospitalred blood cell distribution srkmo7293-35-13 11:31:00 Test Item Value Reference Range Interpretation Comments red blood cell distribution width 13.6 % 11.7-15.4 (test code = 788-0) [facility] corpuscular hemoglobin concentration, [id number] 11:31:00 Test Item Value Reference Range Interpretation Comments mean corpuscular hemoglobin 33.0 G/DL 31.5-35.7 concentration, RBC (test code = 786-4) [facility] corpuscular hemoglobin, [id number] 11:31:00 Test Item Value Reference Range Interpretation Comments mean corpuscular hemoglobin, RBC 29.6 pg 26.6-33.0 (test code = 785-6) [facility] corpuscular volume, [id number] 11:31:00 Test Item Value Reference Range Interpretation Comments mean corpuscular volume, RBC (test code 90 fL 79-97 = 787-2) [facility] Hospitalhematocrit, edgql5171-75-65 11:31:00 Test Item Value Reference Range Interpretation Comments hematocrit, blood (test code = 4544-3) 46.3 % 34.0-46.6 [facility] Hospitalhemoglobin, tmcwe0266-33-11 11:31:00 Test Item Value Reference Range Interpretation Comments hemoglobin, blood (test code = 15.3 g/dL 11.1-15.9 718-7) [facility] Hospitalerythrocyte (RBC) uetcc0802-10-21 11:31:00 Test Item Value Reference Range Interpretation Comments erythrocyte (RBC) count (test 5.17 X10E6/UL 3.77-5.28 code = 789-8) [facility] Hospitalleukocyte count, fdoum9390-34-40 11:31:00 Test Item Value Reference Range Interpretation Comments leukocyte count, blood (test 8.1 X10E3/UL 3.4-10.8 code = 6690-2) [facility] Hospitalhepatitis B surface qmmzytq8206-30-26 11:31:00 Test Item Value Reference Range Interpretation Comments hepatitis B surface antigen (test Negative Negative code = 79) [facility] Hospitalthyroid stimulating hormone, qmlct0356-20-40 11:31:00 Test Item Value Reference Range Interpretation Comments thyroid stimulating hormone, 3.520 u[IU]/mL 0.450-4.500 serum (test code = 3016-3) [facility] Hospitalhepatitis C antibody, [id number] 11:31:00 Test Item Value Reference Range Interpretation Comments hepatitis C antibody, serum (test code <0.1 0.0-0.9 = 5199-5) [facility] HospitalHIV-CMIA (Chemiluminescent Microparticle Immuno Assay) 2021-03-26 11:31:00 Test Item Value Reference Range Interpretation Comments HIV-CMIA (Chemiluminescent Non Reactive Non Reactive Microparticle Immuno Assay) (test code = 356931) [facility] Hospitalvitamin D 25-hydroxy, gyxtt2464-35-22 11:31:00 Test Item Value Reference Range Interpretation Comments vitamin D 25-hydroxy, serum (test 18.7 ng/mL 30.0-100.0 L code = 20640-9) [facility] HospitalHqxkyx48-bdgmkflcdrbxtdwsvgc, serum or [id number] 11:31:00 Test Item Value Reference Range Interpretation Comments 17-hydroxyprogesterone, serum or 23 ng/dL plasma (test code = 3232) [facility], [id number] 11:31:00 Test Item Value Reference Range Interpretation Comments rapid plasma reagin antibody, Non Reactive Non Reactive serum (test code = 5291-0) [facility]lactin, [id number] 11:31:00 Test Item Value Reference Range Interpretation Comments prolactin, serum (test code = 7.0 ng/mL 4.8-23.3 2842-3) [facility]human chorionic gonadotropin, total, [id number] 11:31:00 Test Item Value Reference Range Interpretation Comments human chorionic gonadotropin, <1 mIU/mL total, serum (test code = 3386) [facility]testosterone, [id number] 11:31:00 Test Item Value Reference Range Interpretation Comments testosterone, total (test code = 11 ng/dL 8-60 2986-8) [facility]dehydroepiandrosterone sulfate, [id number] 11:31:00 Test Item Value Reference Range Interpretation Comments dehydroepiandrosterone sulfate, 79.9 ug/dL 57.3-279.2 serum (test code = 2724) [facility]hemoglobin A1C, blood, as % of total [id number] 11:31:00 Test Item Value Reference Range Interpretation Comments hemoglobin A1C, blood, as % of total 5.0 % 4.8-5.6 hemoglobin (test code = 4548-4) [facility] Hospitalfollicle stimulating hormone, [id number] 11:31:00 Test Item Value Reference Range Interpretation Comments follicle stimulating hormone, 9.9 m[IU]/mL serum (test code = 2286-3) [facility]alluteinizing hormone, [id number] 11:31:00 Test Item Value Reference Range Interpretation Comments luteinizing hormone, serum (test 8.1 m[IU]/mL code = 03138-4) [facility] HospitalLDL cholesterol, [id number] 11:31:00 Test Item Value Reference Range Interpretation Comments LDL cholesterol, serum (test code = 117 mg/dL 0-99 H 9-1) [facility]very low density [id number] 11:31:00 Test Item Value Reference Range Interpretation Comments very low density lipoproteins (test 46 mg/dL 5-40 H code = 2091-7) [facility]HDL cholesterol, [id number] 11:31:00 Test Item Value Reference Range Interpretation Comments HDL cholesterol, serum (test code = 61 mg/dL >39 5-9) [facility]triglyceride, serum, [id number] 11:31:00 Test Item Value Reference Range Interpretation Comments triglyceride, serum, fasting (test 269 mg/dL 0-149 H code = 2571-8) [facility]cholesterol, [id number] 11:31:00 Test Item Value Reference Range Interpretation Comments cholesterol, serum (test code = 224 mg/dL 100-199 H 2092-3) [facility] Hospitalalanine aminotransferase (SGPT), [id number] 11:31:00 Test Item Value Reference Range Interpretation Comments alanine aminotransferase (SGPT), serum 9 1/L 0-32 (test code = 1742-6) [facility] Hospitalaspartate aminotransferase (SGOT), [id number] 11:31:00 Test Item Value Reference Range Interpretation Comments aspartate aminotransferase (SGOT), 17 1/L 0-40 serum (test code = 1920-8) [facility] Hospitalalkaline phosphatase, [id number] 11:31:00 Test Item Value Reference Range Interpretation Comments alkaline phosphatase, serum (test code 67 1/L 48-121 = 1783-0) [facility]bilirubin, serum, [id number] 11:31:00 Test Item Value Reference Range Interpretation Comments bilirubin, serum, total (test code 0.3 mg/dL 0.0-1.2 = 1975-2) [facility] HospitalVsxwlsOgepfgemfu2622-57-60 22:36:28 Test Item Value Reference Range Interpretation Comments APPEARANCE (test code = Hazy Clear A 3796898717) COLOR (test code = Bernie Yellow A 0149379224) PH (test code = 4.8-8.0 8419785283) SP GRAVITY (test code = 1.003-1.030 9854763188) GLU U QUAL (test code = Normal Normal 9951211925) BLOOD (test code = Negative Negative 3734702175) KETONES (test code = Negative Negative 1491584531) PROTEIN (test code = 30 mg/dL Negative A 2887-8) UROBILIN (test code = 2.0 mg/dL Normal A 9165988107) BILIRUBIN (test code = Negative Negative 3927183717) NITRITE (test code = Negative Negative 5962456338) LEUK JAMIE (test code = 250/uL Negative A 5262228883) RBC/HPF (test code = See_Comment H [Autom ated message] 8604881635) The system [employer] generated this result transmit pacheco reference range : 0 - 3 HPF. The refe rence range was not u sed to interpret th is result as normal/abnormal . WBC/HPF (test code = See_Comment H [Autom ated message] 8705649933) The system [employer] generated this result transmit pahceco reference range : 0 - 5 HPF. The refe rence range was not u sed to interpret th is result as normal/abnormal . BACTERIA (test code = Few Negative A 3441051833) MUCOUS (test code = Marked Negative LPF A 6823433288) SQ EPITH (test code = See_Comment H [Auto mated message] 0896776944) The system [employer] generated this result transmit pacheco reference range : <=2 HPF. The refere nce range was not u sed to interpret th is result as normal/abnormal . HYAL CAST (test code = See_Comment H [Aut omated message] 3378982512) The system [employer] generated this result transmit pacheco reference range : <=2 LPF. The refere nce range was not u sed to interpret th is result as normal/abnormal . Lab Interpretation (test Abnormal code = 38275-0) [facility]landsN-TERMINAL [id number] 22:11:20 Test Item Value Reference Range Interpretation Comments NT-proBNP (test code 154 pg/mL See_Comment H [Autom ated = 6617650035) message] The system which generated this result transmitted reference range : <=125. The reference range was not used to interpret this result as normal/abnormal . RITU (test code = IRTU) Biotin has been reported to cause a negative bias, interpret results relative to patient's use of biotin. Lab Interpretation Abnormal (test code = 24949-1) [facility]landsTroponin [id number] 22:11:19 Test Item Value Reference Range Interpretation Comments TROPONIN I (test 0.002 ng/mL See_Comment [Automated code = 4905092113) message] The system which generated this result transmitted reference range : <=0.034. The reference range was not used to interpret this result as normal/abnormal . RITU (test code = Equal or Less than RITU) 0.034 ng/ml---Normal ?Note: Cardiac troponin begins to rise 3-4 hours after the onset of ischemia. Repeat in 4-6 hours if the sample was drawn within 3-4 hours of the onset of the symptom and found normal. Between 0.035 and 0.120 ng/mL--- Borderline. Questionable myocardial injury or necrosis ? ?Note: Serial measurement may be necessary to confirm or exclude the diagnosis of myocardial injury or necrosis; Clinical correlation (symptoms, EKGs, imaging studies, and others) required; Repeat in 4-6 hours if clinically indicated. ? Equal or Higher than 0.121 ng/mL---Abnormal. Myocardial Injury or Necrosis Likely ? Biotin has been reported to cause a negative bias, interpret results relative to patient's use of biotin. ? Lab Interpretation Normal (test code = 21674-5) [facility]landsHepatic Function Panel (ALB, T.PRO, BILI T, BU/BC, ALT, AST, ALK PHOS)2020-12-27 21:59:36 Test Item Value Reference Range Interpretation Comments TOTAL BILI (test code = 7349003220) 0.9 mg/dL 0.1-1.1 BILI UNCON (test code = 3729435744) 0.8 mg/dL 0.1-1.1 BILI CONJ (test code = 4064216155) 0.0 mg/dL 0.0-0.3 T PROTEIN (test code = 4138636349) 6.8 g/dL 6.3-8.2 ALBUMIN (test code = 2335314592) 4.0 g/dL 3.5-5.0 ALK PHOS (test code = 7862128979) 54 U/L 34-122 ALTv (test code = 1742-6) 23 U/L 5-35 AST(SGOT) (test code = 7133985423) 38 U/L 13-40 Lab Interpretation (test code = Normal 03491-3) [facility] Metabolic Panel (NA, K, CL, CO2, GLUCOSE, BUN, CREATININE, CA)2020-12-27 21:59:35 Test Item Value Reference Range Interpretation Comments NA (test code = 137 mmol/L 135-145 5107378609) K (test code = 3.3 mmol/L 3.5-5.0 L 1171801242) CL (test code = 108 mmol/L 98-108 9419923822) CO2 TOTAL (test code = 20 mmol/L 23-31 L 0937955371) AGAP (test code = 2-16 5365067481) BUN (test code = 8 mg/dL 7-23 4903284056) GLUCOSE (test code = 114 mg/dL 70-110 H 8052629303) CREATININE (test code = 0.60 mg/dL 0.50-1.04 5704448796) CALCIUM (test code = 9.2 mg/dL 8.6-10.6 6871301445) eGFR (test code = mL/min/1.73m2 3055587019) RITU (test code = RITU) Association of Glomerular Filtration Rate (GFR) and Staging of Kidney Disease* + --+ --+ ------+| GFR (mL/min/1.73 m2) ?| With Kidney Damage ?| ?Without Kidney Damage+ --------+ --------+ +| ?>90 ?| ?Stage one ?| ? Normal ?+ ---+ ---+ -------+| ?60-89 ?| ?Stage two ?| ? Decreased GFR ? + --+ --+ ------+| ?30-59 ?| ?Stage three ?| ? Stage three ? + --+ --+ ------+| ?15-29 ?| ?Stage four ? | ? Stage four ?+ ---+ ---+ -------+| ?<15 (or dialysis) ? ?| ?Stage five ? | ? Stage five ?+ ---+ ---+ -------+ *Each stage assumes the associated GFR level has been in effect for at least three months. ?Stages 1 to 5, with or without kidney disease, indicate chronic kidney disease. Notes: Determination of stages one and two (with eGFR >59mL/min/1.73 m2) requires estimation of kidney damage for at least three months as defined by structural or functional abnormalities of the kidney, manifested by either:Pathological abnormalities or Markers of kidney damage (including abnormalities in the composition of the blood or urine or abnormalities in imaging tests). Lab Interpretation Abnormal (test code = 00799-5) [facility]landsPOCT [id number] 21:51:00 Test Item Value Reference Range Interpretation Comments POCT PREG (test code = 1605) NEGATIVE On board controls acceptable with C PASS Line (test code = 3574) Lab Interpretation (test code = Normal 07959-2) [facility]landsCB with [id number] 21:44:13 Test Item Value Reference Range Interpretation Comments WBC (test code = See_Comment [Automated 3090-2) message] The sy stem which generated this result transmitted reference range : 4.30 - 11.10 10*3/?L. The reference range was not used to interpret this result as normal/abnormal . RBC (test code = See_Comment [Automated 519-8) message] The sy stem which generated this result transmitted reference range : 3.93 - 5.25 10*6/?L. The reference range was not used to interpret this result as normal/abnormal . HGB (test code = 13.7 g/dL 11.6-15.0 718-7) HCT (test code = 38.9 % 35.7-45.2 4544-3) MCV (test code = 84.9 fL 80.6-95.5 787-2) MCH (test code = 29.9 pg 25.9-32.8 785-6) MCHC (test code = 35.2 g/dL 31.6-35.1 H 786-4) RDW-SD (test code = 38.3 fL 39.0-49.9 L 02729-2) RDW-CV (test code = 12.6 % 12.0-15.5 788-0) PLT (test code = See_Comment [Automated 417-3) message] The sy stem which generated this result transmitted reference range : 166 - 358 10*3/ ?L. The reference r romeo was not used to interpret this result as normal/abnormal . MPV (test code = 10.0 fL 9.5-12.9 02787-5) NRBC/100 WBC (test See_Comment [Automat ed code = 2410646776) message] The system which generated this result transmitted reference range : 0.0 - 10.0 /100 WBCs. The refer ence range was not u sed to interpret th is result as normal/abnormal . NRBC x10^3 (test code <0.01 See_Comment [Auto mated = 6415383271) message] The s ystem which generated this result transmitted reference range : 10*3/?L. The reference range was not used to interpret this result as normal/abnormal . GRAN MAT (NEUT) % 61.4 % (test code = 770-8) IMM GRAN % (test code 0.30 % = 1581069088) LYMPH % (test code = 26.2 % 736-9) MONO % (test code = 6.3 % 5905-5) EOS % (test code = 4.9 % 713-8) BASO % (test code = 0.9 % 706-2) GRAN MAT x10^3(ANC) 4.26 10*3/uL 1.88-7.09 (test code = 8222083822) IMM GRAN x10^3 (test <0.03 0.00-0.06 code = 6109400408) LYMPH x10^3 (test code 1.82 10*3/uL 1.32-3.29 = 731-0) MONO x10^3 (test code 0.44 10*3/uL 0.33-0.92 = 742-7) EOS x10^3 (test code = 0.34 10*3/uL 0.03-0.39 711-2) BASO x10^3 (test code 0.06 10*3/uL 0.01-0.07 = 704-7) Lab Interpretation Abnormal (test code = 71463-6) [facility] 1 [id number] 20:54:02CHEST ONE VIEW HISTORY: ?Cough TECHNIQUE: ?AP view of the chest is obtained. COMPARISON: 08/12/2020 FINDINGS: Lungs are clear. Heart size and mediastinal silhouette arenormal. No pleural effusion or pneumothorax is seen. CONCLUSIONS: No acute cardiopulmonary disease. [facility], Radiant Results Inft User - 12/27/2020 3:55 PM CDT CHEST ONE VIEWHISTORY: CoughTECHNIQUE: AP view of the chest is obtained.COMPARISON: 08/12/2020FINDINGS: Lungs are clear. Heart size and mediastinal silhouette arenormal. No pleural effusion or pneumothorax is seen.CONCLUSIONS: No acute cardiopulmonary disease.[facility]AB [facility] C 2020-10-23 03:07:00 Test Item Value Reference Range Interpretation Comments AB HEPATITIS C (test <0.1 0.0-0.9 INFCE R esult Units: s/co code = HCVAB) ratio Negative : < 0.8 Indeterminate: 0.8 - 0.9 Positive: > 0.9 The CDC recommends that a positive HCV antibody re sult be followed up wit h a HCV Nucleic Acid Am plification test (011269).P erformed At: [facility] [address] [place], [place] [id number] Kyle L MD Ph:[phone] - CT ABD PELVIS W/[id number] 19:44:00 [facility])Name: JERI LOPEZ : 1980 Sex: F Name: JERI LOPEZ [facility] : 1980 Age/S: 40 / F [address] [facility] Unit #: [id number] Loc: [place] [address] Phys: Shanika Salas [employer]LOOR INSTALLATION MECHANIC Acct: [id number] Dis Date: Status: REG ER PHONE #: [phone] Exam Date: 10/21/20201929 FAX #: [phone] Reason: R abdominal/flank pain EXAMS: CPT CODE: [id number] CT ABD PELVIS W/CONT 76540 HISTORY: Right abdominal and flank pain. COMPARISON: January 12, 2020. Location: TH. CT of abdomen and pelvis with IV contrast: 100 mL of Isovue 370. Automated exposure control. CT of abdomen: The lung bases demonstrated dependent changes. The liver is enhancing homogeneously. Mild fatty infiltration. No mass. Portal vein and hepatic artery are patent. Patient is post cholecystectomy. The liver is measuring 17 cm in length. The spleen is not enlarged. Homogeneous enhancement. The stomach distended incompletely with thickened distal esophagus. Pancreas enhanced homogeneously. Adrenals are normal. Kidneys are free from hydroureteronephrosis. Homogeneous enhancement. Bilateral excretion. No pathologic adenopathy. Well opacified abdominal and pelvic vasculature. No bowel obstruction or colitis or diverticulitis or enteritis. Constipation CT PELVIS: Appendix is normal. Pelvic bowel loops are unobstructed. Moderate amount of fecal material. Unremarkable urinary bladder. Tubal ligation coils bilaterally. Unremarkable uterus. Poorly visualized ovaries. No free fluid or free air or abscess. No pelvic pathologic adenopathy. Subcutaneous tissues and the musculature are normal in appearance. No lytic or blastic lesions are noted within the bony skeleton. IMPRESSION: PAGE 1 Signed Report (CONTINUED) Name: JERI LOPEZ [facility] : 1979 Age/S: 40 / F [address] [facility] Unit #: [id number] Loc: [place] [address] Phys: Shanika Salas FLOOR INSTALLATION MECHANIC Acct: [id number] Dis Date: Status: REG ER PHONE #: [phone] Exam Date: 10/21/20201929 FAX #: [phone] Reason: R abdominal/flank pain EXAMS: CPT CODE: [id number] CT ABD PELVIS W/CONT 48938 ( Continued) Normal appendix without bowel obstruction or colitis or diverticulitis or enteritis. No free fluid or free air or abscess. No hydroureteronephrosis. Unremarkable urinary bladder. No pathologic adenopathy. at 1942 Reported and signed by: Reji Cho M.D. CC: Shanika Salas NP Technologist:Jeri Valladares RT(R),CT CTDI: DLP: Trnscb Date/Time: 10/21/2020 (1943) t.SDR.TH4 Orig Print D/T: S: 10/21/2020 (1947) PAGE 2 Signed ReportBASIC METABOLIC PANEL 2020-10-21 19:16:00 Test Item Value Reference Range Interpretation Comments SODIUM (test code = 140 mmol/L 136-145 N NA) POTASSIUM (test code 3.8 mmol/L 3.5-5.1 N = K) CHLORIDE (test code 107.0 mmol/L 98-107 N = CL) CARBON DIOXIDE (test 25.0 mmol/L 21-32 N code = CO2) ANION GAP (test code 11.8 10-20 N = GAP) GLUCOSE (test code = 91 mg/dL 74-106 N GLU) BLOOD UREA NITROGEN < 5 mg/dL 7-18 L (test code = BUN) GLOMERULAR > 60 mL/min See_Comment Estimated GFR b y FILTRATION RATE using Modifi ed MDRD (test code = GFR) formula. ron kidney disease is defined as eith er kidney damageor GFR <60 mL/min/1.73 m2 for >3 months. [Automated mess age] The system [employer] generated this result transmitted ref erence range: >=60. Th e reference range was not used to int erpret this result as normal/abnormal . CREATININE (test 0.50 mg/dL 0.55-1.02 L Note pace ge in code = CREAT) reference rang e due to change in reagent. BUN/CREATININE RATIO 9.6 10-20 L (test code = BUN/CREA) CALCIUM (test code = 8.9 mg/dL 8.5-10.1 N CA) HEPATIC FUNCTION [id number] 19:16:00 Test Item Value Reference Range Interpretation Comments TOTAL PROTEIN (test 6.9 gram/dL 6.4-8.2 N code = PROT) ALBUMIN (test code = 3.7 g/dL 3.4-5.0 N ALB) GLOBULIN (test code = 3.2 gram/dL 2.7-4.2 N GLOB) ALBUMIN/GLOBULIN RATIO 1.2 0.75-1.50 N (test code = A/G) BILIRUBIN TOTAL (test 0.40 mg/dL 0.0-1.0 N code = BILT) BILIRUBIN DIRECT (test 0.10 mg/dL 0.0-0.20 N code = BILD) SGOT/AST (test code = 27 IUnit/L 15-37 N AST) SGPT/ALT (test code = 24 IUnit/L 12-78 N ALT) ALKALINE PHOSPHATASE 74 IUnit/L 45-117 N Note change in TOTAL (test code = reference range due ALKP) to change in reagent. [id number] 19:16:00 Test Item Value Reference Range Interpretation Comments LIPASE (test code = LIP) 37 U/L 12.00-57.00 N HCG SERUM [id number] 19:16:00 Test Item Value Reference Range Interpretation Comments HCG SERUM QUAL (test NEGATIVE NEGATIVE This HC GQL test is NOT code = HCGQL) applicable for MALE patients.Check with nurse about probable order error.If Tumor Marker Test needed, nu rse should order test "HCG TU"(Test #550.74617)---- - [id number] 19:16:00 Test Item Value Reference Range Interpretation Comments TROPONIN-I (test code = TROPI) < 0.006 ng/mL 0-0.045 N BASIC METABOLIC [id number] 19:08:00 Test Item Value Reference Range Interpretation Comments SODIUM (test code = 140 mmol/L 136-145 N NA) POTASSIUM (test code 3.8 mmol/L 3.5-5.1 N = K) CHLORIDE (test code 107.0 mmol/L 98-107 N = CL) CARBON DIOXIDE (test 25.0 mmol/L 21-32 N code = CO2) ANION GAP (test code 11.8 10-20 N = GAP) GLUCOSE (test code = 91 mg/dL 74-106 N GLU) BLOOD UREA NITROGEN < 5 mg/dL 7-18 L (test code = BUN) GLOMERULAR > 60 mL/min See_Comment Estimated GFR b y FILTRATION RATE using Modifi ed MDRD (test code = GFR) formula. ronic kidney disease is defined as eith er kidney damageor GFR <60 mL/min/1.73 m2 for >3 months. [Automated mess age] The system [employer] generated this result transmitted ref erence range: >=60. Th e reference range was not used to int erpret this result as normal/abnormal . CREATININE (test 0.50 mg/dL 0.55-1.02 L Note pace ge in code = CREAT) reference rang e due to change in reagent. BUN/CREATININE RATIO 9.6 10-20 L (test code = BUN/CREA) CALCIUM (test code = 8.9 mg/dL 8.5-10.1 N CA) HEPATIC FUNCTION [id number] 19:08:00 Test Item Value Reference Range Interpretation Comments TOTAL PROTEIN (test 6.9 gram/dL 6.4-8.2 N code = PROT) ALBUMIN (test code = 3.7 g/dL 3.4-5.0 N ALB) GLOBULIN (test code = 3.2 gram/dL 2.7-4.2 N GLOB) ALBUMIN/GLOBULIN RATIO 1.2 0.75-1.50 N (test code = A/G) BILIRUBIN TOTAL (test 0.40 mg/dL 0.0-1.0 N code = BILT) BILIRUBIN DIRECT (test 0.10 mg/dL 0.0-0.20 N code = BILD) SGOT/AST (test code = 27 IUnit/L 15-37 N AST) SGPT/ALT (test code = 24 IUnit/L 12-78 N ALT) ALKALINE PHOSPHATASE 74 IUnit/L 45-117 N Note change in TOTAL (test code = reference range due ALKP) to change in reagent. [id number] 19:08:00 Test Item Value Reference Range Interpretation Comments LIPASE (test code = LIP) 37 U/L 12.00-57.00 N HCG SERUM [id number] 19:08:00 Test Item Value Reference Range Interpretation Comments HCG SERUM QUAL (test code = HCGQL) NEGATIVE [id number] 19:08:00 Test Item Value Reference Range Interpretation Comments TROPONIN-I (test code = TROPI) < 0.006 ng/mL 0-0.045 N URINALYSIS [id number] 18:46:00 Test Item Value Reference Range Interpretation Comments UA COLOR (test code = COLU) Light-Yellow YELLOW UA APPEARANCE (test code = CLEAR CLEAR APPU) UA GLUCOSE DIPSTICK (test NEGATIVE mg/dL NEGATIVE code = DGLUU) UA BILIRUBIN DIPSTICK (test NEGATIVE mg/dL NEGATIVE code = BILU) UA KETONE DIPSTICK (test code NEGATIVE mg/dL NEGATIVE = KETU) UA SPECIFIC GRAVITY (test 1.009 1.001-1.035 code = SGU) UA BLOOD DIPSTICK (test code Negative mg/dL NEGATIVE = BRYAN) UA PH DIPSTICK (test code = 7.0 5.0-8.0 SUYAPA) UA PROTEIN DIPSTICK (test NEGATIVE mg/dL NEGATIVE code = PROU) UA UROBILINIOGEN DIPSTICK Normal mg/dL NEGATIVE (test code = URO) UA NITRITE DIPSTICK (test NEGATIVE NEGATIVE code = SHUKRI) UA LEUKOCYTE ESTERASE W NEGATIVE Norman/uL NEGATIVE REFLEX (test code = LEUUR) UA WBC (test code = WBCU) 0-5 per HPF 0-5 UA RBC (test code = RBCU) NONE SEEN #/HPF 0-5 UA EPITHELIAL CELLS (test FEW per HPF FEW code = EPIU) UA BACTERIA (test code = NONE SEEN #/HPF NONE BACU) UA MUCUS (test code = MUCU) FEW #/LPF FEW Urine Source? Clean CatchCBC W/O [id number] 18:46:00 Test Item Value Reference Range Interpretation Comments WHITE BLOOD CELL (test code = 5.5 K/mm3 4.5-12.5 N WBC) RED BLOOD CELL (test code = 5.19 mill/mm3 3.7-5.2 N RBC) HEMOGLOBIN (test code = HGB) 15.0 gram/dL 11.5-15.5 N HEMATOCRIT (test code = HCT) 45.8 % 36.0-46.0 N MEAN CELL VOLUME (test code = 88.2 fL 80-98 N MCV) MEAN CELL HGB (test code = MCH) 28.9 picogram 27.0-33.0 N MEAN CELL HGB CONCETRATION 32.8 gram/dL 33.0-36.0 L (test code = MCHC) RED CELL DISTRIBUTION WIDTH 12.4 % 11.6-16.2 N (test code = RDW) PLATELET COUNT (test code = 193 K/mm3 150-450 N PLT) MEAN PLATELET VOLUME (test code 10.3 fL 6.7-11.0 N = MPV) URINALYSIS [id number] 18:37:00 Test Item Value Reference Range Interpretation Comments UA COLOR (test code = COLU) Light-Yellow YELLOW UA APPEARANCE (test code = CLEAR CLEAR APPU) UA GLUCOSE DIPSTICK (test NEGATIVE mg/dL NEGATIVE code = DGLUU) UA BILIRUBIN DIPSTICK (test NEGATIVE mg/dL NEGATIVE code = BILU) UA KETONE DIPSTICK (test code NEGATIVE mg/dL NEGATIVE = KETU) UA SPECIFIC GRAVITY (test 1.009 1.001-1.035 code = SGU) UA BLOOD DIPSTICK (test code Negative mg/dL NEGATIVE = BRYAN) UA PH DIPSTICK (test code = 7.0 5.0-8.0 SUYAPA) UA PROTEIN DIPSTICK (test NEGATIVE mg/dL NEGATIVE code = PROU) UA UROBILINIOGEN DIPSTICK Normal mg/dL NEGATIVE (test code = URO) UA NITRITE DIPSTICK (test NEGATIVE NEGATIVE code = SHUKRI) UA LEUKOCYTE ESTERASE W NEGATIVE Norman/uL NEGATIVE REFLEX (test code = LEUUR) UA WBC (test code = WBCU) per HPF 0-5 UA RBC (test code = RBCU) per HPF 0-5 UA EPITHELIAL CELLS (test per HPF Few code = EPIU) UA BACTERIA (test code = per HPF NONE BACU) Urine Source? Clean CatchCT ABDOMEN PELVIS WO [id number] 11:22:461. No CT evidence for acute abnormality within the abdomen and pelvis isvisualized. Specifically, noevidence for acute inflammatory process,appendicitis, ureteral calculus or hydronephrosis is present.2. Cholecystectomy has been performed. RL: [id number] ORDERING PHYSICIAN: MITCHELL SALAZAR ABDOMEN AND PELVIS CT WITHOUT INTRAVENOUS CONTRAST. DATE: ?08/12/2020 CLINICAL INDICATIONS: ?Acute, generalized abdominal pain. TECHNIQUE: ?Axial computed tomographic images of the abdomen and pelviswere obtained without intravenous contrast. CT scan was performed accordingto ALARA (As Low as Reasonably Achievable). COMPARISON: None. Abdomen findings: The lung bases are clear. The cardiac apex isunremarkable. Cholecystectomy has been performed. The liver, spleen, pancreas, adrenalglands and kidneys have an unremarkable noncontrast appearance. The stomach, small bowel and colon demonstrate no evidence for obstructionor inflammation. A normal appendix is present in the right lower quadrant. No adenopathy or free fluid are identified within the abdomen. No acuteosseous abnormality is visualized. Pelvis findings: The small bowel and colon are normal caliber. The urinarybladder demonstrates no abnormality. No adenopathy or free fluid areidentified in the pelvis. No acute osseous abnormality is demonstrated. [facility], Radiant Results Inft User - 08/12/2020 5:23AM CSTORDERING PHYSICIAN: MITCHELL CHURCHILL AND PELVIS CT WITHOUT INTRAVENOUS CONTRAST.DATE: 08/12/2020LINICAL INDICATIONS: Acute, generalized abdominal pain.TECHNIQUE: Axial computed tomographic images of the abdomen and pelviswere obtained without intravenous contrast. CT scan was performed accordingto ALARA (As Low as Reasonably Achievable).COMPARISON: None.Abdomen findings: The lung bases are clear. The cardiac apex isunremarkable.Cholecystectomy has been performed. The liver, spleen, pancreas, adrenalglands and kidneys have an unremarkable noncontrast appearance.The stomach, small bowel and colon demonstrate no evidence for obstructionor inflammation. A normal appendix is present in the right lower quadrant.No adenopathy or free fluid are identified within the abdomen. No acuteosseous abnormality is visualized.Pelvis findings: The small bowel and colon are normal caliber. The urinarybladder demonstrates no abnormality. No adenopathy or free fluid areidentified in the pelvis. No acute osseous abnormality is demonstrated.IMPRESSION1. No CT evidence for acute abnormality within the abdomen and pelvis isvisualized. Specifically, no evidence for acute inflammatory process,appendicitis, ureteral calculus or hydronephrosis is present.2. Cholecystectomy has been performed.RL: 2831 [facility] ([facility] NOW RAPID TESTING)2020-08-12 11:21:00 Test Item Value Reference Range Interpretation Comments SARS-CoV-2 Rapid ID NOW Not Detected Not Detected (test code = 44345-6) RITU (test code = RITU) ID NOW COVID-19 Assay is an isothermal nucleic acid amplification test intended for the qualitative detection of nucleic acid from SARS-CoV-2 viral RNA in nasopharyngeal (FLOOR [employer]) specimens. It is used under Emergency Use Authorization (EUA) by FDA. The limit of detection (LOD) of the assay is 125 Genome Equivalents/mL. A positive result is indicative of the presence of SARS-CoV-2 RNA. ?Clinical correlation with patient history and other diagnostic information is necessary to determine patient infection status. A negative (Not Detected) result does not preclude SARS-CoV-2 infection. In patients with clinical symptoms and other tests that are consistent with SARS-CoV-2 infection, negative results should be treated as presumptive negative and a new specimen should be tested with alternative PCR molecular test. Invalid: Please collect a new specimen for repeat patient testing if clinically indicated. Lab Interpretation Normal (test code = 19868-6) [facility] [id number] 11:19:21Impression: 1. ?No acute cardiopulmonary process is identified. RL: 2831 Study: Single view chest. Ordering Physician: KELVIN SALAZAR Date: 08/12/2020 4:30 AM History:cough COMPARISON: None. Findings: Single frontal view chest demonstrates a normal heart size. Thelungs are clear without infiltrate, pleural effusion or pneumothorax. ?Noacute osseous abnormality is identified. [facility], Radiant Results Inft User - 08/12/2020 5:20 AM CSTStudy: Single view chest.Ordering Physician: MITCHELL SALAZARDate: 08/12/2020 4:30 AMHistory:cough COMPARISON: None.Findings: Single frontal view chest demonstrates a normal heart size. Thelungs are clear without infiltrate, pleural effusion or pneumothorax. Noacute osseous abnormality is identified.IMPRESSIONImpression:1. No acute cardiopulmonary process is identified.RL: 2831 [facility] CenterUrinalysis2021-01-17 11:04:00 Test Item Value Reference Range Interpretation Comments APPEARANCE (test code = Hazy Clear A 9200776978) COLOR (test code = Yellow Yellow 9504737263) PH (test code = 4.8-8.0 6312425405) SP GRAVITY (test code = 1.003-1.030 5504001827) GLU U QUAL (test code = Normal Normal 2109756770) BLOOD (test code = Negative Negative 4822867656) KETONES (test code = Negative Negative 3869624136) PROTEIN (test code = Negative Negative 2887-8) UROBILIN (test code = Normal Normal 9796027845) BILIRUBIN (test code = Negative Negative 1590510809) NITRITE (test code = Negative Negative 6088861233) LEUK JAMIE (test code = 25/uL Negative A 0404190897) RBC/HPF (test code = See_Comment [Autom ated message] 6595014442) The system [employer] generated this result transmitted ref erence range: 0 - 3 HP F. The reference range was not used to int erpret this result as normal/abnormal . WBC/HPF (test code = See_Comment H [Autom ated message] 8934744878) The system [employer] generated this result transmitted ref erence range: 0 - 5 HP F. The reference range was not used to int erpret this result as normal/abnormal . BACTERIA (test code = Few Negative A 3344053873) SQ EPITH (test code = See_Comment H [Auto mated message] 9222970620) The system [employer] generated this result transmitted ref erence range: <=2 HPF. The reference range was not used to int erpret this result as normal/abnormal . ASCORBIC ACID (test code Negative = 0572520598) Lab Interpretation (test Abnormal code = 67790-9) [facility] (NA, K, CL, CO2, GLUCOSE, BUN, CREATININE, CA)2020-08-12 11:02:00 Test Item Value Reference Range Interpretation Comments NA (test code = 140 mmol/L 135-145 4479414156) K (test code = 3.9 mmol/L 3.5-5 5281432374) CL (test code = 106 mmol/L 98-108 8618945853) CO2 TOTAL (test code = 23 mmol/L 23-31 5860242404) AGAP (test code = 2-16 4617731852) BUN (test code = 8 mg/dL 7-23 9491265628) GLUCOSE (test code = 91 mg/dL 70-110 9522542452) CREATININE (test code 0.58 mg/dL 0.5-1.04 = 5914103691) CALCIUM (test code = 9.1 mg/dL 8.6-10.6 5434488495) eGFR Calculation mL/min/1.73m2 (Non-) (test code = 1036012916) eGFR Calculation mL/min/1.73m2 () (test code = 5141404077) RITU (test code = RITU) Association of Glomerular Filtration Rate (GFR) and Staging of Kidney Disease* + -+ + ---+| GFR (mL/min/1.73 m2) ?| With Kidney Damage ?| ?Without Kidney Damage+ -------+ ------+ ---------+| ?>90 ?| ?Stage one ?| ? Normal ?+ --+ -+ ----+| ?60-89 ?| ?Stage two ?| ? Decreased GFR ? + -+ + ---+| ?30-59 ?| ?Stage three ?| ? Stage three ? + -+ + ---+| ?15-29 ?| ?Stage four ? | ? Stage four ?+ --+ -+ ----+| ?<15 (or dialysis) ? ?| ?Stage five ? | ? Stage five ?+ --+ -+ ----+ *Each stage assumes the associated GFR level has been in effect for at least three months. ?Stages 1 to 5, with or without kidney disease, indicate chronic kidney disease. Notes: Determination of stages one and two (with eGFR >59mL/min/1.73 m2) requires estimation of kidney damage for at least three months as defined by structural or functional abnormalities of the kidney, manifested by either:Pathological abnormalities or Markers of kidney damage (including abnormalities in the composition of the blood or urine or abnormalities in imaging tests). [facility] (ALB, T.PRO, BILI T, BU/BC, ALT, AST, ALK PHOS)2020-08-12 11:02:00 Test Item Value Reference Range Interpretation Comments TOTAL BILI (test code = 6681149901) 0.2 mg/dL 0.1-1.1 BILI UNCON (test code = 4142854533) 0.1 mg/dL 0.1-1.1 BILI CONJ (test code = 0036586523) 0.0 mg/dL 0-0.3 T PROTEIN (test code = 4612850599) 6.9 g/dL 6.3-8.2 ALBUMIN (test code = 7642899240) 4.2 g/dL 3.5-5 ALK PHOS (test code = 7237370396) 53 U/L 34-122 ALTv (test code = 1742-6) 12 U/L 5-35 AST(SGOT) (test code = 2657864609) 21 U/L 13-40 Lab Interpretation (test code = Normal 05595-1) [facility] with [id number] 10:49:00 Test Item Value Reference Range Interpretation Comments WBC (test code = See_Comment [Automated message] 6690-2) The system [employer] generated this result transmitted ref erence range: 4.30 - 1 1.10 10*3/?L. The re ference range was not u sed to interpret this result as normal/abnor mal. RBC (test code = See_Comment [Automated message] 789-8) The system [employer] generated this result transmitted ref erence range: 3.93 - 5 .25 10*6/?L. The re ference range was not u sed to interpret this result as normal/abnor mal. HGB (test code = 14.8 g/dL 11.6-15 718-7) HCT (test code = 44.4 % 35.7-45.2 4544-3) MCV (test code = 87.1 fL 80.6-95.5 787-2) MCH (test code = 29.0 pg 25.9-32.8 785-6) MCHC (test code = 33.3 g/dL 31.6-35.1 786-4) RDW-SD (test code 39.4 fL 39-49.9 = 98050-1) RDW-CV (test code 12.2 % 12-15.5 = 788-0) PLT (test code = See_Comment [Automated message] 777-3) The system whic h generated this result transmitted ref erence range: 166 - 35 8 10*3/?L. The re ference range was not u sed to interpret this result as normal/abnor mal. MPV (test code = 10.0 fL 9.5-12.9 16084-6) NRBC/100 WBC (test See_Comment [Automat ed message] code = 3612961998) The syste m which generated this result transmitted ref erence range: 0.0 - 10 .0 /100 WBCs. The refer ence range was not u sed to interpret this result as normal/abnor mal. NRBC x10^3 (test <0.01 See_Comment [Automated message] code = 6755311050) The syste m which generated this result transmitted ref erence range: 10*3/?L. The reference range was not used to interpr et this result as normal/abnormal . GRAN MAT (NEUT) % 54.0 % (test code = 770-8) IMM GRAN % (test 0.30 % code = 9302422643) LYMPH % (test code 35.3 % = 736-9) MONO % (test code 5.4 % = 5905-5) EOS % (test code = 4.4 % 713-8) BASO % (test code 0.6 % = 706-2) GRAN MAT 4.22 10*3/uL 1.88-7.09 x10^3(ANC) (test code = 7077314081) IMM GRAN x10^3 <0.03 0-0.06 (test code = 9348466166) LYMPH x10^3 (test 2.76 10*3/uL 1.32-3.29 code = 731-0) MONO x10^3 (test 0.42 10*3/uL 0.33-0.92 code = 742-7) EOS x10^3 (test 0.34 10*3/uL 0.03-0.39 code = 711-2) BASO x10^3 (test 0.05 10*3/uL 0.01-0.07 code = 704-7) [facility] [id number] 10:35:00 Test Item Value Reference Range Interpretation Comments POCT PREG (test code = 1605) Negative On board controls acceptable with present C Line (test code = 3574) POCT PREG LOT # (test code = 3575) [id number] POCT PREG TEST DATE (test 02/24/2021 code = 3576) Lab Interpretation (test code = Normal 52407-2) [facility] METABOLIC [id number] 01:53:00 Test Item Value Reference Range Interpretation Comments SODIUM (test code = 140 mmol/L 136-145 N NA) POTASSIUM (test code 4.1 mmol/L 3.5-5.1 N = K) CHLORIDE (test code = 108.0 mmol/L 98-107 H CL) CARBON DIOXIDE (test 26.0 mmol/L 21-32 N code = CO2) ANION GAP (test code 10.1 10-20 N = GAP) GLUCOSE (test code = 81 mg/dL 74-106 N GLU) BLOOD UREA NITROGEN 9 mg/dL 7-18 N (test code = BUN) GLOMERULAR FILTRATION > 60 mL/min >=60 Estima pacheco GFR by RATE (test code = using Alison fied MDRD GFR) formula.Chronic kidney disease is defined as eith er kidney damageor GFR <60 mL/min/1.73 m2 for >3 months. CREATININE (test code 0.60 mg/dL 0.55-1.02 N Note change in = CREAT) reference range due to change in reagent. BUN/CREATININE RATIO 14.8 10-20 N (test code = BUN/CREA) CALCIUM (test code = 9.2 mg/dL 8.5-10.1 N CA) HEPATIC FUNCTION [id number] 01:53:00 Test Item Value Reference Range Interpretation Comments TOTAL PROTEIN (test 7.5 gram/dL 6.4-8.2 N code = PROT) ALBUMIN (test code = 3.5 g/dL 3.4-5.0 N ALB) GLOBULIN (test code = 4.0 gram/dL 2.7-4.2 N GLOB) ALBUMIN/GLOBULIN RATIO 0.9 0.75-1.50 N (test code = A/G) BILIRUBIN TOTAL (test 0.30 mg/dL 0.0-1.0 N code = BILT) BILIRUBIN DIRECT (test 0.08 mg/dL 0.0-0.20 N code = BILD) SGOT/AST (test code = 12 IUnit/L 15-37 L AST) SGPT/ALT (test code = 26 IUnit/L 12-78 N ALT) ALKALINE PHOSPHATASE 73 IUnit/L 45-117 N Note change in TOTAL (test code = reference range due ALKP) to change in reagent. [id number] 01:53:00 Test Item Value Reference Range Interpretation Comments LIPASE (test code = LIP) 140 U/L 73.0-393.0 N HCG SERUM [id number] 01:53:00 Test Item Value Reference Range Interpretation Comments HCG SERUM QUAL (test NEGATIVE NEGATIVE This HC GQL test is NOT code = HCGQL) applicable for MALE patients.Check with nurse about probable order error.If Tumor Marker Test needed, nu rse should order test "HCG TU"(Test #550.85243)---- - - CT ABD PELVIS W/O [id number] 01:46:00 Name: JERI LOPEZ [facility] : 1980 Age/S: 39 / F [address] [facility] Unit #: [id number] Loc: [place] [address] Phys: Jennifer Bloom NP Acct: [id number] Dis Date: Status: REG ER PHONE #: [phone] Exam Date: 01/12/2020 0044 FAX #: [phone] Reason: left flank pain EXAMS: CPT CODE: [id number] CT ABD PELVIS W/O CONT 38164 EXAM: CT ABDOMEN AND PELVIS WITHOUT IV CONTRAST DICTATION LOCATION: H48 HISTORY: Female, 39 years of age with left flank pain TECHNIQUE: Contrast: No IV contrast was given. No GI contrast was given. Noncontrast phase: Abdomen and pelvis Reconstructions: Coronal and sagittal planes One or more of the following dose reduction techniques were used: Automated exposure control; adjustment of the mA and/or kV according to the patient size; and/or use of iterativereconstruction technique. COMPARISON: Previous CT abdomen and pelvis with contrast performed 08/07/2014 FINDINGS: Statements: Lack of intravenous contrast compromises evaluation of abdominopelvic organs and vasculature. Lower thorax: Unremarkable. Hepatobiliary: The liver is normal without focal lesion. Status post cholecystectomy. No biliary dilation. Pancreas: Normal. Spleen: Normal. Adrenals: Normal. Genitourinary: No renal calculus or hydronephrosis. No ureteral stones. Urinary bladder is unremarkable. Bilateral fallopian tube occlusion devices are present. Uterus and ovaries otherwise unremarkable. Gastrointestinal: No bowel wall thickening, bowel obstruction or perienteric inflammation. Theappendix is normal. Vascular: No aortic aneurysm. IVC unremarkable. Lymphatics: No enlarged lymph nodes by CT size criteria. PAGE 1 Signed Report (CONTINUED) Name: [facility] 1980 Age/S: 39 / F [address] [facility] Unit #: [id number] Loc: [place] [address] Phys: Jennifer Bloom NP Acct: [id number] Dis Date: Status: REG ER PHONE #: [phone] Exam Date: 01/12/2020 0044FAX #: [phone] Reason: left flank pain EXAMS: CPT CODE: [id number] CT ABD PELVIS W/O CONT 29322(Continued) Bones/Soft Tissues: No acute osseous findings. 3.5 cm fat-containing umbilical hernia isnoted. No other ventral hernias are seen. Peritoneum/Other: No free intraperitoneal air. No free intraperitoneal fluid. IMPRESSION: No acute findings in the abdomen or pelvis. Electronically Signedby Michell Muller MD on 01/12/2020 at 0146 Reported and signed by: Michell Muller MD CC: Jennifer Bloom NP Technologist:CARA MASTERSON CTDI: DLP: Trnscb Date/Time: 01/12/2020 (145) [email or web address] Orig Print D/T: S: 01/12/2020 (014) PAGE 2 Signed ReportBASIC METABOLIC [id number] 01:33:00 Test Item Value Reference Range Interpretation Comments SODIUM (test code = NA) 140 mmol/L 136-145 N POTASSIUM (test code = K) 4.1 mmol/L 3.5-5.1 N CHLORIDE (test code = CL) 108.0 mmol/L 98-107 H CARBON DIOXIDE (test code = CO2) mmol/L 21-32 ANION GAP (test code = GAP) 10-20 GLUCOSE (test code = GLU) mg/dL 74-106 BLOOD UREA NITROGEN (test code = mg/dL 7-18 BUN) GLOMERULAR FILTRATION RATE (test mL/min >=60 code = GFR) CREATININE (test code = CREAT) mg/dL 0.55-1.02 BUN/CREATININE RATIO (test code 10-20 = BUN/CREA) CALCIUM (test code = CA) mg/dL 8.5-10.1 HEPATIC FUNCTION [id number] 01:33:00 Test Item Value Reference Range Interpretation Comments TOTAL PROTEIN (test code = PROT) gram/dL 6.4-8.2 ALBUMIN (test code = ALB) g/dL 3.4-5.0 GLOBULIN (test code = GLOB) gram/dL 2.7-4.2 ALBUMIN/GLOBULIN RATIO (test code = 0.75-1.50 A/G) BILIRUBIN TOTAL (test code = BILT) mg/dL 0.0-1.0 BILIRUBIN DIRECT (test code = BILD) mg/dL 0.0-0.20 SGOT/AST (test code = AST) IUnit/L 15-37 SGPT/ALT (test code = ALT) IUnit/L 12-78 ALKALINE PHOSPHATASE TOTAL (test IUnit/L 45-117 code = ALKP) [id number] 01:33:00 Test Item Value Reference Range Interpretation Comments LIPASE (test code = LIP) U/L 73.0-393.0 HCG SERUM [id number] 01:33:00 Test Item Value Reference Range Interpretation Comments HCG SERUM QUAL (test NEGATIVE NEGATIVE This HC GQL test is NOT code = HCGQL) applicable for MALE patients.Check with nurse about probable order error.If Tumor Marker Test needed, nu rse should order test "HCG TU"(Test #550.80718)---- - BASIC METABOLIC [id number] 01:25:00 Test Item Value Reference Range Interpretation Comments SODIUM (test code = NA) mmol/L 136-145 POTASSIUM (test code = K) mmol/L 3.5-5.1 CHLORIDE (test code = CL) mmol/L 98-107 CARBON DIOXIDE (test code = CO2) mmol/L 21-32 ANION GAP (test code = GAP) 10-20 GLUCOSE (test code = GLU) mg/dL 74-106 BLOOD UREA NITROGEN (test code = BUN) mg/dL 7-18 GLOMERULAR FILTRATION RATE (test code mL/min >=60 = GFR) CREATININE (test code = CREAT) mg/dL 0.55-1.02 BUN/CREATININE RATIO (test code = 10-20 BUN/CREA) CALCIUM (test code = CA) mg/dL 8.5-10.1 HEPATIC FUNCTION [id number] 01:25:00 Test Item Value Reference Range Interpretation Comments TOTAL PROTEIN (test code = PROT) gram/dL 6.4-8.2 ALBUMIN (test code = ALB) g/dL 3.4-5.0 GLOBULIN (test code = GLOB) gram/dL 2.7-4.2 ALBUMIN/GLOBULIN RATIO (test code = 0.75-1.50 A/G) BILIRUBIN TOTAL (test code = BILT) mg/dL 0.0-1.0 BILIRUBIN DIRECT (test code = BILD) mg/dL 0.0-0.20 SGOT/AST (test code = AST) IUnit/L 15-37 SGPT/ALT (test code = ALT) IUnit/L 12-78 ALKALINE PHOSPHATASE TOTAL (test IUnit/L 45-117 code = ALKP) [id number] 01:25:00 Test Item Value Reference Range Interpretation Comments LIPASE (test code = LIP) U/L 73.0-393.0 HCG SERUM [id number] 01:25:00 Test Item Value Reference Range Interpretation Comments HCG SERUM QUAL (test NEGATIVE NEGATIVE This HC GQL test is NOT code = HCGQL) applicable for MALE patients.Check with nurse about probable order error.If Tumor Marker Test needed, nu rse should order test "HCG TU"(Test #550.78656)---- - CBC W/O [id number] 00:43:00 Test Item Value Reference Range Interpretation Comments WHITE BLOOD CELL (test code = 9.2 K/mm3 4.5-12.5 N WBC) RED BLOOD CELL (test code = 4.94 mill/mm3 3.7-5.2 N RBC) HEMOGLOBIN (test code = HGB) 14.5 gram/dL 11.5-15.5 N HEMATOCRIT (test code = HCT) 43.7 % 36.0-46.0 N MEAN CELL VOLUME (test code = 88.5 fL 80-98 N MCV) MEAN CELL HGB (test code = MCH) 29.4 picogram 27.0-33.0 N MEAN CELL HGB CONCETRATION 33.2 gram/dL 33.0-36.0 N (test code = MCHC) RED CELL DISTRIBUTION WIDTH 13.1 % 11.6-16.2 N (test code = RDW) PLATELET COUNT (test code = 250 K/mm3 150-450 N PLT) MEAN PLATELET VOLUME (test code 10.4 fL 6.7-11.0 N = MPV) URINALYSIS [id number] 22:34:00 Test Item Value Reference Range Interpretation Comments UA COLOR (test code = COLU) Light-Yellow YELLOW UA APPEARANCE (test code = CLEAR CLEAR APPU) UA GLUCOSE DIPSTICK (test NEGATIVE mg/dL NEGATIVE code = DGLUU) UA BILIRUBIN DIPSTICK (test NEGATIVE mg/dL NEGATIVE code = BILU) UA KETONE DIPSTICK (test code NEGATIVE mg/dL NEGATIVE = KETU) UA SPECIFIC GRAVITY (test 1.015 1.001-1.035 code = SGU) UA BLOOD DIPSTICK (test code Negative mg/dL NEGATIVE = BRYAN) UA PH DIPSTICK (test code = 7.0 5.0-8.0 SUYAPA) UA PROTEIN DIPSTICK (test NEGATIVE mg/dL NEGATIVE code = PROU) UA UROBILINIOGEN DIPSTICK Normal mg/dL NEGATIVE (test code = URO) UA NITRITE DIPSTICK (test NEGATIVE NEGATIVE code = SHUKRI) UA LEUKOCYTE ESTERASE W NEGATIVE Norman/uL NEGATIVE REFLEX (test code = LEUUR) UA WBC (test code = WBCU) 0-5 per HPF 0-5 UA RBC (test code = RBCU) 0-2 #/HPF 0-5 UA EPITHELIAL CELLS (test FEW per HPF FEW code = EPIU) UA BACTERIA (test code = NONE SEEN #/HPF NONE BACU) UA MUCUS (test code = MUCU) FEW #/LPF FEW Urine Source? Clean Catch- XR FOOT 3 + V [id number] 01:29:00 FAX: Malaika Trejo [phone] [place]: St: [facility] FAX: Courtney Cosme Name: JERI LOPEZ [facility] : 1980 Age/S: 38/F [address] [facility] Unit #: [id number] Loc: [place] [address] Phys: Courtney Cosme NP Acct: [id number] Dis Date: Status: REG ER PHONE #: [phone] Exam Date: 11/03/2018 0120 FAX #: [phone] Reason: PAIN S/P FALL EXAMS: CPT CODE: [id number] XR FOOT 3 +V [place] [address] LOCATION: Q15 HISTORY: 38-year-old female who presents with left foot pain after suffering a fall. COMMENT: Frontal, oblique, and lateral radiographs of the patient's left foot were obtained. Field 6 The skeleton is intact, and normally mineralized. The joint spaces are well- maintained. Thesoft tissues are unremarkable. IMPRESSION: Unremarkable radiographic examination of the left foot. at 0129 Reported and signed by:Cortes Galeana M.D. CC: Malaika Meeks M.D.; Courtney Cosme NP Technologist: Becca Watts Trnscrd Date/Time/By: 11/03/2018 (0129) : By: [email or web address] Orig Print D/T: S: 11/03/2018 (9873) PAGE 1 Signed Report- XR ANKLE 3 + V RT 2018-11-03 01:26:00 FAX: Malaika Trejo [phone] [place]: St: REG FAX: Courtney Cosme Name: JERI LOPEZ [facility] : 1980 Age/S: 38/F [address] [facility] Unit #: [id number] Loc: [place] [address] Phys: Courtney Cosme NP Acct: [id number] Dis Date: Status: REG ER PHONE #: [phone] Exam Date: 11/03/2018 0120 FAX #: [phone] Reason: PAIN S/P FALL EXAMS: CPT CODE: [id number] XR ANKLE 3+ [place] [address] AFTER HOURS SERVICE ON: 11/03/2018 1:26 AM Right Ankle, 3 Views Location Code M12 History: PAIN S/P FALL Findings: There is normal anatomic alignment. No fracture, dislocation or avulsion fragments are seen. Ankle mortise, tibial plafond and talar dome are intact. Impression: Unremarkableankle. at 0126 Reported and signed by: Deepti Pyle M.D. CC: Malaika Meeks M.D.; Courtney Cosme NP Technologist: Becca Watts Trnscrd Date/Time/By: 11/03/2018 (0126) : By: [email or web address] Orig Print D/T: S: 11/03/2018 (6848) PAGE 1 Signed Report- XR L-SPINE 2/3 [id number] 01:25:00 FAX: Malaika Trejo [phone] [place]: St: REG FAX: Courtney Cosme Name: JERI LOPEZ [facility] : 1980 Age/S: 38/F [address] [facility] Unit #: [id number] Loc: [place] [address] Phys: Courtney Cosme NP Acct: [id number] Dis Date: Status: REG ER PHONE #: [phone] Exam Date: 11/03/2018 0120 FAX #: [phone] Reason: PAIN S/P FALL EXAMS: CPT CODE: [id number] XR L-SPINE 2/3 VIEWS 91174 AFTER HOURS SERVICE ON: 11/03/2018 1:25 AM Lumbar Spine, 3 Views Location Code M12 History: PAIN S/P FALL Findings: There is normal anatomic alignment. There is no spondylolisthesis. Vertebral body heights are normal without compression fractures. Impression: Unremarkable lumbar spine. at 0125 Reported and signed by: Deepti Pyle M.D. CC: Malaika Meeks M.D.; Courtney Cosme NP Technologist: Becca Watts Trnmord Date/Time/By: 11/03/2018 (0125) : By: [email or web address] Orig Print D/T: S: 11/03/2018 (012) PAGE 1 Signed ReportBASIC METABOLIC [id number] 21:54:00 Test Item Value Reference Range Interpretation Comments SODIUM (test code = 141 mmol/L 136-145 N NA) POTASSIUM (test code 3.6 mmol/L 3.5-5.1 N = K) CHLORIDE (test code = 109.0 mmol/L 98-107 H CL) CARBON DIOXIDE (test 24.0 mmol/L 21-32 N code = CO2) ANION GAP (test code 11.6 10-20 N = GAP) GLUCOSE (test code = 87 mg/dL 74-106 N GLU) BLOOD UREA NITROGEN 7 mg/dL 7-18 N (test code = BUN) GLOMERULAR FILTRATION > 60 mL/min >=60 Estima pacheco GFR by RATE (test code = using Alison fied MDRD GFR) formula.Chronic kidney disease is defined as [facility] er kidney damageor GFR <60 mL/min/1.73 m2 for >3 months. CREATININE (test code 0.70 mg/dL 0.55-1.02 N Note change in = CREAT) reference range due to change in reagent. BUN/CREATININE RATIO 9.6 10-20 L (test code = BUN/CREA) CALCIUM (test code = 8.5 mg/dL 8.5-10.1 N CA) HEPATIC FUNCTION [id number] 21:54:00 Test Item Value Reference Range Interpretation Comments TOTAL PROTEIN (test 7.6 gram/dL 6.4-8.2 N code = PROT) ALBUMIN (test code = 3.6 g/dL 3.4-5.0 N ALB) GLOBULIN (test code = 4.0 gram/dL 2.7-4.2 N GLOB) ALBUMIN/GLOBULIN RATIO 0.9 0.75-1.50 N (test code = A/G) BILIRUBIN TOTAL (test 0.20 mg/dL 0.0-1.0 N code = BILT) BILIRUBIN DIRECT (test 0.08 mg/dL 0.0-0.20 N code = BILD) SGOT/AST (test code = 52 IUnit/L 15-37 H AST) SGPT/ALT (test code = 41 IUnit/L 12-78 N ALT) ALKALINE PHOSPHATASE 78 IUnit/L 45-117 N Note change in TOTAL (test code = reference range due ALKP) to change in reagent. [id number] 21:54:00 Test Item Value Reference Range Interpretation Comments LIPASE (test code = LIP) 133 U/L 73.0-393.0 N HCG SERUM [id number] 21:54:00 Test Item Value Reference Range Interpretation Comments HCG SERUM QUAL (test NEGATIVE NEGATIVE This HC GQL test is NOT code = HCGQL) applicable for MALE patients.Check with nurse about probable order error.If Tumor Marker Test needed, nu rse should order test "HCG TU"(Test #550.70411)---- - BASIC METABOLIC [id number] 21:53:00 Test Item Value Reference Range Interpretation Comments SODIUM (test code = 141 mmol/L 136-145 N NA) POTASSIUM (test code 3.6 mmol/L 3.5-5.1 N = K) CHLORIDE (test code = 109.0 mmol/L 98-107 H CL) CARBON DIOXIDE (test 24.0 mmol/L 21-32 N code = CO2) ANION GAP (test code 11.6 10-20 N = GAP) GLUCOSE (test code = 87 mg/dL 74-106 N GLU) BLOOD UREA NITROGEN 7 mg/dL 7-18 N (test code = BUN) GLOMERULAR FILTRATION > 60 mL/min >=60 Estima pacheco GFR by RATE (test code = using Alison fied MDRD GFR) formula.Chronic kidney disease is defined as [facility] kidney damageor GFR <60 mL/min/1.73 m2 for >3 months. CREATININE (test code 0.70 mg/dL 0.55-1.02 N Note change in = CREAT) reference range due to change in reagent. BUN/CREATININE RATIO 9.6 10-20 L (test code = BUN/CREA) CALCIUM (test code = 8.5 mg/dL 8.5-10.1 N CA) HEPATIC FUNCTION [id number] 21:53:00 Test Item Value Reference Range Interpretation Comments TOTAL PROTEIN (test 7.6 gram/dL 6.4-8.2 N code = PROT) ALBUMIN (test code = 3.6 g/dL 3.4-5.0 N ALB) GLOBULIN (test code = 4.0 gram/dL 2.7-4.2 N GLOB) ALBUMIN/GLOBULIN RATIO 0.9 0.75-1.50 N (test code = A/G) BILIRUBIN TOTAL (test 0.20 mg/dL 0.0-1.0 N code = BILT) BILIRUBIN DIRECT (test 0.08 mg/dL 0.0-0.20 N code = BILD) SGOT/AST (test code = 52 IUnit/L 15-37 H AST) SGPT/ALT (test code = 41 IUnit/L 12-78 N ALT) ALKALINE PHOSPHATASE 78 IUnit/L 45-117 N Note change in TOTAL (test code = reference range due ALKP) to change in reagent. [id number] 21:53:00 Test Item Value Reference Range Interpretation Comments LIPASE (test code = LIP) 133 U/L 73.0-393.0 N HCG SERUM [id number] 21:53:00 Test Item Value Reference Range Interpretation Comments HCG SERUM QUAL (test code = HCGQL) NEGATIVE - US RETRO [id number] 21:49:00 Name: JERI LOPEZ [facility] : 1980 Age/S: 38 / F [address] [facility] Unit #: [id number] Loc: [place] [address] Phys: Arron Zhou NP Acct: [id number] Dis Date: Status: REG ER PHONE #: [phone] Exam Date: 09/18/2018 2131 FAX #: [phone] Reason: BILATERAL FLANK PAIN EXAMS: CPT CODE: [id number] US RETRO LTD 93046 HISTORY: Bilateral flank pain. COMPARISON: August 07, 2014. Note: Limited examination due to patient's very large body habitus. Both kidneys are free from hydronephrosis. Calyceal stones in the left lower pole measuring up to 6 mm. No stones on the right. No perinephric collections. Right kidney measured 10.9 x 4.4 x 4.3 cm. Left kidney measured 11.6 x 5.3 x6.2 cm. Unremarkable incompletely distended urinary bladder with bilateral ureteral jets. IMPRESSION: No hydronephrosis on either side with nonobstructing 6 mm left lower pole calyceal stone. Normal ech ogenicity and texture. Unremarkable incompletely distended urinary bladder with bilateral ureteral jets. at 2148 Reported and signed by: Reji Cho M.D. CC: Malaika Meeks M.D.; René Watson MD; Arron Zhou NP Technologist: YELENA WRIGHT Trnscb Date/Time: 09/18/2018 (2148) [email or web address] Orig Print D/T: S: 09/18/2018 (2151) Probe: PAGE 1 Signed ReportBASIC METABOLIC [id number] 21:43:00 Test Item Value Reference Range Interpretation Comments SODIUM (test code = NA) 141 mmol/L 136-145 N POTASSIUM (test code = K) 3.6 mmol/L 3.5-5.1 N CHLORIDE (test code = CL) 109.0 mmol/L 98-107 H CARBON DIOXIDE (test code = CO2) mmol/L 21-32 ANION GAP (test code = GAP) 10-20 GLUCOSE (test code = GLU) mg/dL 74-106 BLOOD UREA NITROGEN (test code = mg/dL 7-18 BUN) GLOMERULAR FILTRATION RATE (test mL/min >=60 code = GFR) CREATININE (test code = CREAT) mg/dL 0.55-1.02 BUN/CREATININE RATIO (test code 10-20 = BUN/CREA) CALCIUM (test code = CA) mg/dL 8.5-10.1 HEPATIC FUNCTION [id number] 21:43:00 Test Item Value Reference Range Interpretation Comments TOTAL PROTEIN (test code = PROT) gram/dL 6.4-8.2 ALBUMIN (test code = ALB) g/dL 3.4-5.0 GLOBULIN (test code = GLOB) gram/dL 2.7-4.2 ALBUMIN/GLOBULIN RATIO (test code = 0.75-1.50 A/G) BILIRUBIN TOTAL (test code = BILT) mg/dL 0.0-1.0 BILIRUBIN DIRECT (test code = BILD) mg/dL 0.0-0.20 SGOT/AST (test code = AST) IUnit/L 15-37 SGPT/ALT (test code = ALT) IUnit/L 12-78 ALKALINE PHOSPHATASE TOTAL (test IUnit/L 45-117 code = ALKP) [id number] 21:43:00 Test Item Value Reference Range Interpretation Comments LIPASE (test code = LIP) U/L 73.0-393.0 HCG SERUM [id number] 21:43:00 Test Item Value Reference Range Interpretation Comments HCG SERUM QUAL (test code = HCGQL) NEGATIVE CBC W/O [id number] 21:24:00 Test Item Value Reference Range Interpretation Comments WHITE BLOOD CELL (test code = 6.5 K/mm3 4.5-12.5 N WBC) RED BLOOD CELL (test code = 4.82 mill/mm3 3.7-5.2 N RBC) HEMOGLOBIN (test code = HGB) 13.9 gram/dL 11.5-15.5 N HEMATOCRIT (test code = HCT) 42.5 % 36.0-46.0 N MEAN CELL VOLUME (test code = 88.2 fL 80-98 N MCV) MEAN CELL HGB (test code = MCH) 28.8 picogram 27.0-33.0 N MEAN CELL HGB CONCETRATION 32.7 gram/dL 33.0-36.0 L (test code = MCHC) RED CELL DISTRIBUTION WIDTH 13.3 % 11.6-16.2 N (test code = RDW) PLATELET COUNT (test code = 238 K/mm3 150-450 N PLT) MEAN PLATELET VOLUME (test code 10.2 fL 6.7-11.0 N = MPV) URINALYSIS [id number] 21:24:00 Test Item Value Reference Range Interpretation Comments UA COLOR (test code = COLU) STRAW YELLOW UA APPEARANCE (test code = CLEAR CLEAR APPU) UA GLUCOSE DIPSTICK (test code NEGATIVE mg/dL NEGATIVE = DGLUU) UA BILIRUBIN DIPSTICK (test NEGATIVE mg/dL NEGATIVE code = BILU) UA KETONE DIPSTICK (test code Negative mg/dL NEGATIVE = KETU) UA SPECIFIC GRAVITY (test code 1.008 1.001-1.035 = SGU) UA BLOOD DIPSTICK (test code = 1+ (Small) NEGATIVE A BRYAN) UA PH DIPSTICK (test code = 8.0 5.0-8.0 SUYAPA) UA PROTEIN DIPSTICK (test code Negative mg/dL NEGATIVE = PROU) UA UROBILINIOGEN DIPSTICK NEGATIVE mg/dL NEGATIVE (test code = URO) UA NITRITE DIPSTICK (test code NEGATIVE NEGATIVE = SHUKRI) UA LEUKOCYTE ESTERASE W REFLEX TRACE NEGATIVE A (test code = LEUUR) UA WBC (test code = WBCU) 0-5 #/HPF 0-5 UA RBC (test code = RBCU) 0-2 #/HPF 0-5 UA EPITHELIAL CELLS (test code MOD per HPF FEW = EPIU) UA BACTERIA (test code = BACU) FEW #/HPF NONE A UA MUCUS (test code = MUCU) FEW #/LPF FEW Urine Source? Clean CatchCBC W/O [id number] 21:23:00 Test Item Value Reference Range Interpretation Comments WHITE BLOOD CELL (test code = K/mm3 4.5-12.5 WBC) RED BLOOD CELL (test code = RBC) mill/mm3 3.7-5.2 HEMOGLOBIN (test code = HGB) 13.9 gram/dL 11.5-15.5 N HEMATOCRIT (test code = HCT) 42.5 % 36.0-46.0 N MEAN CELL VOLUME (test code = fL 80-98 MCV) MEAN CELL HGB (test code = MCH) picogram 27.0-33.0 MEAN CELL HGB CONCETRATION (test gram/dL 33.0-36.0 code = MCHC) RED CELL DISTRIBUTION WIDTH % 11.6-16.2 (test code = RDW) PLATELET COUNT (test code = PLT) K/mm3 150-450 MEAN PLATELET VOLUME (test code fL 6.7-11.0 = MPV) URINALYSIS [id number] 21:21:00 Test Item Value Reference Range Interpretation Comments UA COLOR (test code = COLU) STRAW YELLOW UA APPEARANCE (test code = CLEAR CLEAR APPU) UA GLUCOSE DIPSTICK (test code NEGATIVE mg/dL NEGATIVE = DGLUU) UA BILIRUBIN DIPSTICK (test NEGATIVE mg/dL NEGATIVE code = BILU) UA KETONE DIPSTICK (test code Negative mg/dL NEGATIVE = KETU) UA SPECIFIC GRAVITY (test code 1.008 1.001-1.035 = SGU) UA BLOOD DIPSTICK (test code = 1+ (Small) NEGATIVE A BRYAN) UA PH DIPSTICK (test code = 8.0 5.0-8.0 SUYAPA) UA PROTEIN DIPSTICK (test code Negative mg/dL NEGATIVE = PROU) UA UROBILINIOGEN DIPSTICK NEGATIVE mg/dL NEGATIVE (test code = URO) UA NITRITE DIPSTICK (test code NEGATIVE NEGATIVE = SHUKRI) UA LEUKOCYTE ESTERASE W REFLEX TRACE NEGATIVE A (test code = LEUUR) UA WBC (test code = WBCU) per HPF 0-5 Urine Source? Clean Catch Notes Date/Time Note Provider Source 2023-01-23 14:16:00-00:00 [facility] ([facility]) EMERGENCY PROVIDER REPORT REPORT#:[id number] REPORT STATUS: Signed DATE:01/23/23 TIME: 1415 PATIENT: JERI LOPEZ UNIT #: [id number] ROOM/BED: AGE: 42 SEX: F PCP PHYS: No Primary or Family Ph ysician SERVICE AUTHOR: Aba Bruce RNNP * ALL edits or amendments must be made on the Edkimo/computer document * Aba Bruce 01/23/23 1416: HPI-Rash/Abscess/Cellulitis Free Text HPI Notes Free Text HPI Notes Patient presents to ED with possible boil to sacrum. Patient states she woke up today with pain around 1 AM. 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 Patient denies chest pain, shortness of breath, and fever. General Confirmed Patient Yes Initial Greet Date/Time 01/23/23 1405 Assumed Care at Time 1405 Date 01/23/23 Presentation Chief Complaint Boil, Tender/swollen area Hx Obtained From Patient Onset Occurred Today Symptom Duration Constant Progression since Onset Constant Review of Systems ROS Statements All systems rev neg except as marked. Complete sys rev neg except as marked. Basic Review of Systems Basic ROS : No dysuria/louann quency, HEM: No bleeding/bruising, NEURO: No change MS, NEURO: No focal deficit, PSYCH: NL thought c ontent Focused Review of Systems Skin Reports: Abscess. Past Medical History - Adult Stated Complaint BOIL Allergies Coded Allergies: No Known Allergies (10/23/22) Home Medications Active Scripts AMOXICILLIN/CLAV K (AUGMENTIN 875/125 MG) 875 MG PO Q12H 10 Days #20 TABS Prov: 10/23/22 FLUTICASONE PROPIONATE (FLONASE 50 MCG/ACT NASAL ) 1 SPRAY NASAL BID FLUTICASONE PROPIONATE (FLONASE 50 MCG/ACT NASA L) 1 SPRAY NASAL BID #16 GM Prov: 10/23/22 NAPROXEN (NAPROSYN) 500 MG PO BID PRN PRN PAIN NAPROXEN (NAPROSYN) 500 MG PO BID PRN PRN PAIN #15 TABS Prov: 10/23/22 DEXTROMETHORPHAN POLISTIREX ER (DELSYM 12 HOUR 30 MG/5 ML) 30 MG PO Q12H PRN PRN cough DEXTROMETHORPHAN POLISTIREX ER (DELSYM 12 HOUR 30 MG/5 ML) 30 MG PO Q12H PRN PRN cough #110 ML Prov: 10/23/22 Past Surgical History: Reports: Cholecystectomy, Tonsillectomy. Additional Surgical History OVARAIN CYST Physical Exam Vital Signs Vital Signs First Documented: Result Date Time Pulse Ox 100 01/23 1405 B/P 123/85 01/23 1405 B/P Mean 97 01/23 1405 Temp 36.8 01/23 1405 Pulse 90 01/23 1405 Resp 14 01/23 1405 O2 Delivery Room air 01/23 1436 Last Documented: Result Date Time Pulse Ox 99 01/23 1436 B/P 118/78 01/23 1436 B/P Mean 91 01/23 1436 O2 Delivery Room air 01/23 1436 Temp 36.8 01/23 1436 Pulse 85 01/23 1436 Resp 15 01/23 1436 Review of Vital Signs Reviewed Basic Physical Exam Basic PE HEAD: Atraumatic/NC, EYES: PERRL, conj clear, ENT: Membranes moist, NECK: Supple, RESP: No resp distress, CV: Reg ra te rhythm, ABD: Soft/non- tender, EXT: No gross abnormality, NEURO: alert oriented, NEURO: gross movement NL, PSYCH: NL thought content Focused PE General/Const General/Const Awake, Alert, No acute distress Skin Skin Atraumatic Text/Dict Notes 2 cm x 3 cm erythematous, firm area noted to pat ient's sacrum. No evidence of extension into rectum. Tenderness with palpation . No drainage noted at this time. Appears to be a cluster of mild papules no pacheco to area. Re-Evaluation MDM Free Text MDM Notes Free Text MDM Notes Patient nontoxic-appearing. Patient vital signs stable. Patient has no evidence of induration extending to the rectum. Patient discharged with oral and topical antibiotics. Differential Diagnosis Differential Diagnosis Abscess, Cellulit is, Contact dermatitis, Furunculosis ( boil), Insect bite, MRSA, Urticaria Patient Discharge Departure Vital Signs/Condition Vital Signs First Documented: Result Date Time Pulse Ox 100 01/23 1405 B/P 123/85 01/23 1405 B/P Mean 97 01/23 1405 Temp 36.8 01/23 1405 Pulse 90 01/23 1405 Resp 14 01/23 1405 O2 Delivery Room air 01/23 1436 Last Documented: Result Date Time Pulse Ox 99 01/23 1436 B/P 118/78 01/23 1436 B/P Mean 91 01/23 1436 O2 Delivery Room air 01/23 1436 Temp 36.8 01/23 1436 Pulse 85 01/23 1436 Resp 15 01/23 1436 All vital signs available at the time of this en try have been reviewed. Condition Stable Clinical Impression Clinical Impression Primary Impression: Furuncle, unspecified Disposition Decision Discharge )( Discharged to Home Yes )( Time 1432 )( Date 01/23/23 Discharge/Care Plan Counseled Regarding Diagnosi s, Prescriptions, Need for follow-up, When to return to ED (Auto) Prescriptions Current Visit Scripts SULFAMETHOXAZOLE/TMP (BACTRIM DS 800/160 MG) 1 T AB PO Q12H SULFAMETHOXAZOLE/TMP (BACTRIM DS 800/160 MG) 1 TAB PO Q12H #14 TABS UNTIL FINISHED MUPIROCIN (BACTROBAN 2%) 1 APPLIC TOPICAL TID MUPIROCIN (BACTROBAN 2%) 1 APPLIC TOPICAL TID # 22 GM APPLY TO AFFECTED AREA. Prescriptions Reviewed Risks, Benefits, Alternat suad treatment Patient Instructions Abscess Abx Tx Additional Instructions Apply warm compresses to sacral 3-4 times daily Keep area clean and dry Take antibiotics as prescribed Follow-up with PCP in 3 to 5 days Return to ED if symptoms worsens or new symptoms develop Discharge Note I have spoken with the patie nt and/or caregivers. I have explained the patient's condition, diagnoses and sandi atment plan based on the information available to me at this time. I have answered the patient's and/ or caregiver's questions and addressed any concerns. The patient and/or careg nita have as good an understanding of the patient 's diagnosis, condition and treatment plan as can be expected at this point. The vital signs have bee n stable. The patient's condition is stable and appr opriate for discharge from the emergency department. The patient will pursue further outpatient evalu ation with the primary care physician or other designated or consulting phys agustoan as outlined in the discharge instructions. The patient and/or caregivers are agreeable to this plan of care and follow-up instructions have been exp lained in detail. The patient and/or caregivers have received these instructio ns in written format and have expressed an understanding of the discharge inst ructions. The patient and/or caregivers are aware that any significant change in condition or worsening of symptoms should prompt an immediate return to [facility] or the closest emergency department or a call to [facility]. René Watson 01/23/23 1753: Patient Discharge Departure Discharge/Care Plan Referrals Resource Referral: Niraj Choudhury [facility] Address: [address] [place] [address] Supervising Physician Note MidLv Saw Pt Alone I have reviewed the PA/FLOOR INSTALLATION MECHANIC's note and plan of car e. I was available for consultation as needed at al l times during the patient's visit in the emergency department. I agree with the clinical impression , plan and disposition. at 1613 Electronically Signed by René Watson MD on 12/27 at 1753 RPT #:[id number] END OF REPORT 2022-10-23 13:30:00-00:00 [id number] [facility] PATIENT NAME: JERI LOPEZ ADMIT DATE: ACCOUNT NO: [id number] ROOM NO: AGE: 42 REPORT TYPE: eEKG REPORT SEX: F DATE OF : [birth year] ADMITTING PHYSICIAN: ATTENDING PHYSICIAN: Order: [id number] Test Reason : Test Date/Time Stamp: ThuOct 23 2022 13:30:34 Blood Pressure : / mmHG Vent. Rate : 084 BPM Atrial Rate : 084 BPM P-R Int : 148 ms QRS Dur : 072 ms QT Int : 368 ms P-R-T Axes : 080 075 069 degree s QTc Int : 434 ms Normal sinus rhythm Normal ECG No previous ECGs available Confirmed by ROLANDO MONCADA MD ([id number]) on 9:33:51 PM Referred By: GENERIC EDDOC Confirmed by:ROLANDO BOWDEN MD at 2133 PATIENT NAME: JERI LOPEZ ACCOUNT #: [id number] 2022-10-23 12:24:00-00:00 [facility] ([facility]) EMERGENCY PROVIDER REPORT REPORT#:[id number] REPORT STATUS: Signed DATE:10/23/22 TIME: 1224 PATIENT: JERI LOPEZ UNIT #: [id number] ROOM/BED: AGE: 42 SEX: F PCP PHYS: No Primary or Family Ph ysician SERVICE AUTHOR: Kirt Staley APR PARK RANGER * ALL edits or amendments must be made on the Edkimo/computer document * [facility] Illness Free Text HPI Notes Free Text HPI Notes The patient is a 42-year-old female presenting t o the ER with a complaint of upper respiratory tract symptoms. The patient re ports 3 days worth of upper respiratory tract symptoms, such as cough, sore throat, coryza, postnasal drip, tender/swollen lymph nodes in the neck, ear canal fullness, and malaise. These symptoms have been persisten t for the past three days and have worsended despite taking dihb-nmj-hoefiac medications like TheraFl u. General Initial Greet Date/Time 10/23/22 1202 Presentation Chief Complaint Flulike illness Hx Obtained From Patient Onset Occurred Days ago Review of Systems ROS Statements All systems rev neg except as marked. Focused Review of Systems Constitutional Reports: Malaise. Ears/Nose/Throat Reports: Earache bilat, Nasal congestion, Sore t hroat. Respiratory Reports: Cough, non-productive. Free Text ROS Notes Free Text ROS Notes Reports ear canal fullness Reports tender/swollen lymph nodes in the neck Past Medical History - Adult Stated Complaint COUGH/FLU LIKE SYMPTOMS Allergies Coded Allergies: No Known Allergies (10/23/22) Physical Exam Vital Signs Vital Signs First Documented: Result Date Time Pulse Ox 98 10/23 1227 B/P 121/78 10/23 1227 B/P Mean 92.0 10/23 1227 Temp 36.8 10/23 1226 Pulse 101 10/23 1227 Resp 22 10/23 1227 O2 Delivery Room air 10/23 1316 Last Documented: Result Date Time Pulse Ox 97 10/23 1317 B/P 127/86 10/23 1317 B/P Mean 99.8 10/23 1317 O2 Delivery Room air 10/23 1316 Temp 36.7 10/23 1316 Pulse 94 10/23 1316 Resp 20 10/23 131 Review of Vital Signs Reviewed, Vital signs norm al Basic Physical Exam Basic PE HEAD: Atraumatic/NC , EYES: PERRL, conj clear, ENT: Membranes moist, ABD : Soft/non-tender, EXT: No gross abnormality, PS YCH: NL thought content Focused PE General/Const General/Const Awake, Alert, No acute di stress, Well appearing, Well developed , Well hydrated, Well nourished, Cooperative, No t toxic appearing Ears/Nose/Throat Pharynx/Tonsils/Uvula Pharyngeal erythema. Right Ear/Mastoid Tympanic membrane red, Fluid behind TM clear. Left Ear/Mastoid Tympanic membrane red, Fluid behind TM clear. Nose Rhinorrhea, Turbinates swollen. MS Neck Neck Atraumatic, Supple Soft Tissue Neck Cervical adenopathy L. Resp/Chest Respiratory/Chest Atraumatic, Breath sounds NL, Breath sounds = bilat, No respiratory distress, No rales, No rhonchi, No w heezing Cardiovascular Cardiovascular Heart rate NL, Regular rhythm, H eart sounds NL Skin Skin Atraumatic, Color NL, No rash, Warm, Dry, Intact Neurologic Neurologic Oriented X3, Speech NL, No m otor deficits, No sensory deficits, CN II - XII intact Interpretation Diagnostics Lab Results Interpretation Results Laboratory Tests: 10/23 10/23 1309 1309 Other Body Source POC Nasal Influenza A (Negative) Negative POC Nasal Influenza B (Negative) Negative Serology SARS-CoV-2 Ag (Rapid) (NEGATIVE) NEGATIVE Group A Strep Antibody (NEGATIVE) NEGATIVE Recent Impressions: RADIOLOGY - XR CHEST 1 V 10/23 1229 Report Impression - Status: SIGNED Entered: 10/23/2022 1258 IMPRESSION: No acute cardiopulmonary process. Location: [facility] Impression By: Jose Manuel Rothman MD Re-Evaluation MDM Free Text MDM Notes Free Text MDM Notes hinosinusitis, acute bronchitis, viral pneumonia , bacterial pneumonia, URI, common cold, asthma, bronchiectasis, gastroesoph ageal reflux disease, foreign body aspiration, infectious mononucleosis, strep pharyngitis, allergic rhinitis, pleural effusion, ED Course Medication(s) Ordered Medication(s) Ordered: Hormones And Synthetic Substit Sig/Vidal Start time Last Medication Dose Route Stop Time Status Admin Dexamethasone 10 MG X1ED STA 10/23 1227 DC 09/26 0 IM 10/23 1228 1248 Patient Discharge Departure Vital Signs/Condition Vital Signs First Documented: Result Date Time Pulse Ox 98 10/23 1227 B/P 121/78 10/23 1227 B/P Mean 92.0 10/23 1227 Temp 36.8 10/23 1227 Pulse 101 10/23 1227 Resp 22 10/23 1227 O2 Delivery Room air 10/23 1317 Last Documented: Result Date Time Pulse Ox 97 10/23 1317 B/P 127/86 10/23 1317 B/P Mean 99.8 10/23 1317 O2 Delivery Room air 10/23 1317 Temp 36.7 10/23 1317 Pulse 94 10/23 1317 Resp 20 10/23 1317 All vital signs available at the time of this en try have been reviewed. Condition Stable, Improved Clinical Impression Clinical Impression Primary Impression: Acute bacterial rhinosinusit is Disposition Decision Discharge )( Discharged to Home Yes )( Time 1351 )( Date 10/23/22 Discharge/Care Plan Counseled Regarding Diagnosi s, Lab results, Imaging studies, Prescriptions, Need for follow-up, When to return to ED (Auto) Prescriptions Current Visit Scripts AMOXICILLIN/CLAV K (AUGMENTIN 875/125 MG) 875 MG PO Q12H 10 Days #20 TABS FLUTICASONE PROPIONATE (FLONASE 50 MCG/ACT NASAL ) 1 SPRAY NASAL BID FLUTICASONE PROPIONATE (FLONASE 50 MCG/ACT NASA L) 1 SPRAY NASAL BID #16 GM One spray in each nostril. NAPROXEN (NAPROSYN) 500 MG PO BID PRN PRN PAIN NAPROXEN (NAPROSYN) 500 MG PO BID PRN PRN PAIN #15 TABS DEXTROMETHORPHAN POLISTIREX ER (DELSYM 12 HOUR 30 MG/5 ML) 30 MG PO Q12H PRN PRN cough DEXTROMETHORPHAN POLISTIREX ER (DELSYM 12 HOUR 30 MG/5 ML) 30 MG PO Q12H PRN PRN cough #110 ML Patient Instructions ED Sinusitis (Antibiotic Tr eatment) Additional Instructions Return here or see your doctor right away if you have these symptoms: Fever higher than 102 F (38.9 C) Sudden and severe pain in the face and head Trouble seeing, or seeing double Trouble thinking clearly Swelling or redness around 1 or both eyes A stiff neck Referrals Resource Referral: [facility] Address: [address] [place] [id number] Resource Referral: Niraj Choudhury [facility] Address: [address] [place] [id number] [facility] Address: [address] [place] [address] Discharge Note I have spoken with the patie nt and/or caregivers. I have explained the patient's condition, diagnoses and sandi atment plan based on the information available to me at this time. I have answered the patient's and/ or caregiver's questions and addressed any concerns. The patient and/or careg nita have as good an understanding of the patient 's diagnosis, condition and treatment plan as can be expected at this point. The vital signs have bee n stable. The patient's condition is stable and appr opriate for discharge from the emergency department. The patient will pursue further outpatient evalu ation with the primary care physician or other designated or consulting phys ician as outlined in the discharge instructions. The patient and/or caregivers are agreeable to this plan of care and follow-up instructions have been exp lained in detail. The patient and/or caregivers have received these instructio ns in written format and have expressed an understanding of the discharge inst ructions. The patient and/or caregivers are aware that any significant change in condition or worsening of symptoms should prompt an immediate return to [facility] or the closest emergency department or a call to 911. Quality Measures BP F/U for HTN BP in normal range Smoking Cessation Screened, non user at 1358 RPT #:[id number] END OF REPORT 2022-10-01 01:50:00-00:00 [facility] ([facility]) EMERGENCY PROVIDER REPORT REPORT#:[id number] REPORT STATUS: Signed DATE:10/01/22 TIME: 0150 PATIENT: JERI LOPEZ UNIT #: [id number] ROOM/BED: AGE: 42 SEX: F PCP PHYS: No Primary or Family Ph ysician SERVICE AUTHOR: Mary Jane Ozuna MD * ALL edits or amendments must be made on the [employer] document * HPI-Chest Pain 40 and Over General Initial Greet Date/Time 09/30/22 2250 PCP [facility] Presentation Chief Complaint Shortness of breath Hx Obtained From Patient Sudden in Onset? No )( Migration/Movement None Free Text HPI Notes Free Text HPI Notes Patient is a 42-year-old female with no PMH who presents with cough, shortness of breath, sore throat and a vague chest tightne ss since 09/28. She reports she was trying to wash her truck with "[employer]". She sprayed it on her truck but she was standing down wind and she inh aled rather a lot of it. She also got some on her hands, arms and face where it has caused an irritation. However, the irritation has nearly resolved. She continues with cough and shortness of breath. She states she feels a tigh tness when trying to breathe. Patient reports a burning sensation from her epi gastric area to her sternal notch. Patient denies fever or chills. No nausea or vomiting. Risk-Chest Pain 40 and Over Risk Stratification )( Coronary Artery Disease Risk factors reviewed )( Thoracic Aortic Dissection Risk factors revie wed )( Pulmonary Embolism Risk factors reviewed )( AMI-Aspirin Aspirin Last 24 Hrs Not indicated )( HEART for MACE )( HEART for MACE Response Value History Low index of suspicion 0 ECG Interpretation Normal ECG 0 Age Age under 45 0 Risk Factors for CAD No risk factors known 0 Total 0 Review of Systems ROS Statements All systems rev neg except as marked. Free Text ROS Notes Free Text ROS Notes Constitutional: No fever or chills Cardiovascular: No chest pain or palpitations Neurologic: No headache, focal deficits or weakn ess Chronic conditions/symptoms are consider ed negative if unchanged from baseline Additional positives and negatives may be presen t in the HPI Past Medical History - Adult Stated Complaint SOB-SORE THROAT-RUNNY NOSE-ABDO TOYIN PAIN Allergies Coded Allergies: No Known Allergies (08/26/22) Home Medications Active Scripts CEPHALEXIN (KEFLEX) 500 MG PO Q8HR 7 Days #21 CAPS Prov: 07/04/21 FLUTICASONE PROPIONATE (FLONASE 50 MCG/ACT NASAL ) 1 SPRAY NASAL BID 7 Days #16 GM Prov: 07/04/21 BUTALBITAL/APAP/CAFF 50/300/40 MG (FIORICET) 1 C AP PO Q4H PRN PRN Headache BUTALBITAL/APAP/CAFF 50/300/40 MG (FIORICET) 1 CAP PO Q4H PRN PRN Headache #30 CAPS Prov: 04/28/21 metroNIDAZOLE (FLAGYL) 500 MG PO Q12H 7 Days #14 TABS Prov: 01/01/22 CLINDAMYCIN PHOSPHATE (CLEOCIN T 1%) 1 APPLIC TO PICAL BID CLINDAMYCIN PHOSPHATE (CLEOCIN T 1%) 1 APPLIC T OPICAL BID #30 GM Prov: 01/01/22 CEPHALEXIN (KEFLEX) 500 MG PO Q12H 14 Days #28 CAPS Prov: 01/01/22 BROMPHENIRAMINE/PSEUDOEPHED/ DM ([id number] SYR) 10 ML PO Q6H PRN PRN COUGH BROMPHENIRAMINE/PSEUDOEPHED/DM (BROMPHENIR-PSEU DOEPHED-DM SYR) 10 ML PO Q6H PRN PRN COUGH #200 ML Prov: 06/20/21 DICYCLOMINE (BENTYL) 10 MG PO Q6H PRN PRN ABDOMI NAL PAIN/CRAMPING DICYCLOMINE (BENTYL) 10 MG PO Q6H PRN PRN ABDOM INAL PAIN/CRAMPING #30 CAPS Prov: 08/27/22 Discontinued Scripts BENZONATATE (TESSALON) 100 MG PO Q8H PRN PRN COU GH BENZONATATE (TESSALON) 100 MG PO Q8H PRN PRN CO UGH #12 CAPS Prov: 07/04/21 DC: 09/30/22 2325 Therapy completed NAPROXEN (NAPROSYN) 500 MG PO BID PRN PRN PAIN NAPROXEN (NAPROSYN) 500 MG PO BID PRN PRN PAIN #20 TABS Prov: 04/28/21 DC: 09/30/22 2325 Therapy completed PHENAZOPYRIDINE (PYRIDIUM) 100 MG PO Q8H PRN PRN DYSURIA PHENAZOPYRIDINE (PYRIDIUM) 100 MG PO Q8H PRN OR N DYSURIA #6 TABS Prov: 01/01/22 DC: 09/30/22 2325 Therapy completed BENZONATATE (TESSALON) 200 MG PO Q8H PRN PRN COU GH BENZONATATE (TESSALON) 200 MG PO Q8H PRN PRN CO UGH #20 CAPS Prov: 06/20/21 DC: 09/30/22 2325 Therapy completed ALBUTEROL (PROAIR HFA 90 MCG/ACT 8.5 GM) 2 PUFF INH RTQ4H PRN PRN DYSPNEA/ WHEEZING ALBUTEROL (PROAIR HFA 90 MCG/ACT 8.5 GM) 2 PUF F INH RTQ4H PRN PRN DYSPNEA/ WHEEZING #8.5 GM Prov: 06/20/21 DC: 09/30/222324 Therapy completed traMADol (ULTRAM) 50 MG PO Q6H PRN PRN ACUTE MEENAKSHI N traMADol (ULTRAM) 50 MG PO Q6H PRN PRN ACUTE PA IN #15 TABS Prov: 08/27/22 DC: 09/30/225 Therapy completed Reported Medications LITHIUM CARBONATE 300 MG PO TID Past Medical History: Reports: Depression/mood disorder (bipolar d/o), Hypertension, Dyslipidemia. Additional Medical History ruptured ovarian cyst, vitamin D def Past Surgical History: Reports: Cholecystectomy, Tonsillectomy. Alcohol Use Alcohol use (SOCIAL) Drug Use ECSTASY Smoking status for patients 13 years old or olde r: Current some day smoker Other Social History Uses e-cigarettes/vapes Physical Exam Vital Signs Vital Signs First Documented: Result Date Time Pulse Ox 98 09/30 2237 B/P 115/83 09/30 2237 B/P Mean 93 09/30 2237 O2 Delivery Room air 09/30 2237 Temp 36.8 09/30 2237 Pulse 86 09/30 2237 Resp 18 09/30 2237 Last Documented: Result Date Time Pulse Ox 99 10/01 354 B/P 110/76 10/01 354 B/P Mean 87 10/01 354 O2 Delivery Room air 10/01 354 Temp 36.7 10/01 354 Pulse 82 10/01 354 Resp 18 10/01 354 Review of Vital Signs Reviewed Free Text PE Notes Free Text PE Notes GEN: Awake, alert. No acute distress. Well-appea ring. Cooperative. HEAD: Atraumatic. Normocephalic. EYES: PERRL. EOMI. No nystagmus. No photophobia . ENT: Airway patent. MMM. Normal pharynx. NECK: Atraumatic. No meningismus. FROM. Nontende r. RESP/CHEST: Breath sounds normal. No respiratory distress. No chest tenderness. CV: RRR. Heart sounds normal. Normal cap refill. ABD/GI: Soft, nontender. BS normoactive. No palp able mass. SKIN: WDI. Normal color. No rash. NEURO: Oriented x3. Clear speech. CN II - XII gr ossly intact. BACK: Atraumatic. Nontender. PSYCH: Mood and affect normal. Interpretation Diagnostics Lab Results Interpretation Results Laboratory Tests 09/30/22 2340: [Embedded Image Not Available] Laboratory Tests: 10/01 09/30 09/30 0000 2340 2340 Chemistry Sodium (136 - 145 mmol/L) 140 Potassium (3.5 - 5.1 mmol/L) 3.6 Chloride (98 - 107 mmol/L) 106.0 Carbon Dioxide (21 - 32 mmol/L) 25.0 Anion Gap (10 - 20) 12.6 BUN (7 - 18 mg/dL) 6 L Creatinine (0.55 - 1.02 mg/dL) 0.80 Glomerular Filtr Rate (>=60 mL/min) > 60 BUN/Creatinine Ratio (10 - 20) 7.8 L Glucose (74 - 106 mg/dL) 60 L Calcium (8.5 - 10.1 mg/dL) 8.9 Total Bilirubin (0.0 - 1.0 mg/dL) 0.70 Direct Bilirubin (0.0 - 0.20 mg/dL) 0.20 AST (15 - 37 IUnit/L) 17 ALT (12 - 78 IUnit/L) 10 L Total Alk Phosphatase (45 - 117 IUnit/L) 74 Total Protein (6.4 - 8.2 gram/dL) 7.6 Albumin (3.4 - 5.0 g/dL) 4.1 Globulin (2.7 - 4.2 gram/dL) 3.5 Albumin/Globulin Ratio (0.75 - 1.50) 1.2 Lipase (12.00 - 57.00 U/L) 43 Serum , Qual (NEGATIVE) NEGATIVE Hematology WBC (4.5 - 12.5 K/mm3) 10.1 RBC (3.7 - 5.2 mill/mm3) 5.50 H Hgb (11.5 - 15.5 gram/dL) 15.8 H Hct (36.0 - 46.0 %) 48.5 H MCV (80 - 98 fL) 88.2 MCH (27.0 - 33.0 picogram) 28.7 MCHC (33.0 - 36.0 gram/dL) 32.6 L RDW (11.6 - 16.2 %) 13.1 Plt Count (150 - 450 K/mm3) 300 MPV (6.7 - 11.0 fL) 10.4 Other Body Source POC Nasal Influenza A (Negative) Negative POC Nasal Influenza B (Negative) Negative Serology SARS-CoV-2 Ag (Rapid) (NEGATIVE) NEGATIVE Group A Strep Antibody (NEGATIVE) NEGATIVE Urines Urine Color (YELLOW) Light-Yellow Urine Appearance (CLEAR) Cloudy H Urine pH (5.0 - 8.0) 6.5 Ur Specific [place] (1.001 - 1.035) 1.017 Urine Protein (NEGATIVE mg/dL) NEGATIVE Urine Glucose (UA) (NEGATIVE mg/dL) NEGATIVE Urine Ketones (NEGATIVE mg/dL) NEGATIVE Urine Blood (NEGATIVE mg/dL) Negative Urine Nitrite (NEGATIVE) NEGATIVE Urine Bilirubin (NEGATIVE mg/dL) NEGATIVE Urine Urobilinogen (NEGATIVE mg/dL) Normal Ur Leukocyte Esterase (NEGATIVE Norman/uL) NEGATIV E Urine RBC (0 - 5 #/HPF) NONE SEEN Urine WBC (0 - 5 per HPF) 0-5 Ur Epithelial Cells (FEW per HPF) MANY Urine Bacteria (NONE #/HPF) NONE SEEN Urine Mucus (FEW #/LPF) FEW Recent Impressions: RADIOLOGY - XR CHEST 1 V 03/08 0149 Report Impression - Status: SIGNED Entered: 10/01/2022227 IMPRESSION: No radiographic evidence of acute cardiopulmonar y process. Impression By: Carlos Garrison MD Lab Imaging Statement Laboratory radiographic studies reviewed and con sidered in the medical decision-making. Point of Care Testing Pulse Oximetry Pulse Ox % 98 On: Room air Interpretation Interpreted by me, Pulse oximetr y normal ECG #1 Interpretation Date 09/30/22 Time 234 Interpreted by and reviewed by me NL ECG Interpretation Normal rate (83), Normal sinus rhythm, No acute ischemic changes, No STEMI, Normal QRS Re-Evaluation MDM Re-Evaluation/Progress #1 Text/Dict Note Patient resting comfortably. No distress. No kailyn reciable change after GI cocktail. Discussed possibility of chemical pneu monitis causing symptoms. Discussed albuterol MDI and discharge home. Melody ent voices understanding and agreement. Strict return precautions given. Time of Re-Eval 332 ED Course Medication(s) Ordered Medication(s) Ordered: Cardiovascular Drugs Sig/Vidal Start time Last Medication Dose Route Stop Time Status Admin Lidocaine HCl 10 ML X1ED STA 10/01 148 DC 03/0 8 PO 10/01 0150 0224 Gastrointestinal Drugs Sig/Vidal Start time Last Medication Dose Route Stop Time Status Admin Al Hydrox/Mg Hydrox/ 30 ML X1ED STA 10/01 014 DC 10/01 Simethicone PO 10/01 0150 0225 Patient Discharge Departure Vital Signs/Condition Vital Signs First Documented: Result Date Time Pulse Ox 98 09/30 2237 B/P 115/83 09/30 2237 B/P Mean 93 09/30 2237 O2 Delivery Room air 09/30 2237 Temp 36.8 09/30 2237 Pulse 86 09/30 2237 Resp 18 09/30 2237 Last Documented: Result Date Time Pulse Ox 99 10/01 354 B/P 110/76 10/01 354 B/P Mean 87 10/01 354 O2 Delivery Room air 10/01 354 Temp 36.7 10/01 354 Pulse 82 10/01 354 Resp 18 10/01 354 All vital signs available at the time of this en try have been reviewed. Clinical Impression Clinical Impression Primary Impression: Chemical pneumonitis Disposition Decision Discharge )( Discharged to Home Yes )( Time 333 )( Date 10/01/22 Discharge/Care Plan (Auto) Prescriptions Current Visit Scripts ALBUTEROL (VENTOLIN HFA 90 M CG/ACT 18 GM) 2 PUFF INH RTQ4H PRN PRN SHORTNESS OF BREATH/COUGH ALBUTEROL (VENTOLIN HFA 90 MCG/ACT 18 GM) 2 PUF F INH RTQ4H PRN PRN SHORTNESS OF BREATH/COUGH #18 GM DME - SPACER (SPACER) EACH MISC ASDIR DME - SPACER (SPACER) EACH [facility] Spacer of choice Patient Instructions ED Chemical Inhalation, Hyp ersensitivity Pneumonitis Additional Instructions As discussed, there were no significant abnormalities found today. You may have a chemical pneumonitis. This is an irritation of the lungs and airways from a chemical. It usually resolves on its own. It can sometimes take several days. Use the inhaler as directed. Obviously a void further chemical exposure. Return at anytime with new or worsening symptoms. Referrals Resource Referral: [facility] Address: [address] [place] [address] at 1329 RPT #:[id number] END OF REPORT 2022-09-30 23:49:00-00:00 [id number] [facility] PATIENT NAME: JERI LOPEZ ADMIT DATE: 02/15 ACCOUNT NO: [id number] ROOM NO: AGE: 42 REPORT TYPE: eEKG REPORT SEX: F DATE OF : [birth year] ADMITTING PHYSICIAN: ATTENDING PHYSICIAN: Order: [id number] Test Reason : Test Date/Time Stamp: ThuSep 30 2022 23:49:46 Blood Pressure : / mmHG Vent. Rate : 083 BPM Atrial Rate : 083 BPM P-R Int : 156 ms QRS Dur : 068 ms QT Int : 368 ms P-R-T Axes : 055 045 047 degree s QTc Int : 432 ms Normal sinus rhythm Normal ECG No previous ECGs available Confirmed by Elliot Ritchie ([id number]) on 10/01/2022 1:51:48 PM Referred By: Self Referred Confirmed by:Elliot Anderson Electronically Signed by Elliot Ritchie MD o n 10/01/22 at 1351 PATIENT NAME: JERI LOPEZ [id number] 2022-08-26 20:04:00-00:00 [facility] ([facility]) EMERGENCY PROVIDER REPORT REPORT#:[id number] REPORT STATUS: Signed DATE:08/26/22 TIME: 2003 PATIENT: JERI LOPEZ UNIT #: [id number] ROOM/BED: AGE: 42 SEX: F PCP PHYS: No Primary or Family Ph ysician SERVICE AUTHOR: Augustina Villalba MD * ALL edits or amendments must be made on the [employer] document * See Addendum Augustina Villalba. 08/26/222003: HPI-Abd Pain F 40 and Over General Initial Greet Date/Time 08/26/22 1910 Presentation Chief Complaint Abdominal pain Hx Obtained From Patient Sudden in Onset? No Onset Occurred Today Symptom Duration Waxes and wanes Progression since Onset Constant Location Abdomen upper Quality Painful, Pressure Radiation Does not radiate. Associated with Reports: Chest pain, Nausea. Denies: Back pain, Constipation, Diarrhea, Dysuria , Fever, Shortness of breath, Urinary tract symp toms, Vomiting. Exacerbated by Nothing Relieved by Nothing Free Text HPI Notes Free Text HPI Notes Patient is a 42-year-old fem marge with a history of depression that presents with a chief complaint of upper abdominal meenakshi n since earlier today. Patient reports the pain has been constant, but waxes and wanes in intensity. She reports associated nausea but denies any vomiting, diarrhea or constipation. She denies any urinary complaints. Patient also complains o f left-sided chest pain that she describes as a pressure-like sensation. Stat es she was diagnosed with tachycardia and has been having this issue for t he last 6 months. Patient states that it feels worse today. She al so reports she has had a cough for the last 2 years, for which she is being evaluated. Patient states that she currently has a URI. Risk-Abd Pain F 40 and Over )( Abdominal Aortic Aneurysm Risk factors review ed Review of Systems ROS Statements All systems rev neg except as marked. Focused Review of Systems Constitutional Denies: Chills, Fever, Lethargy. Cardiovascular Reports: Chest pain. Denies: Syncope. Female Denies: Dysuria, Flank pain, Pelvic pain. Musculoskeletal Denies: Back pain, Extremity pain. Past Medical History - Adult Stated Complaint CHEST PAIN, ABDOMINAL PAIN Allergies Coded Allergies: No Known Allergies (08/26/22) Home Medications Active Scripts CEPHALEXIN (KEFLEX) 500 MG PO Q8HR 7 Days #21 CAPS Prov: 07/04/21 FLUTICASONE PROPIONATE (FLONASE 50 MCG/ACT NASAL ) 1 SPRAY NASAL BID 7 Days #16 GM Prov: 07/04/21 BENZONATATE (TESSALON) 100 MG PO Q8H PRN PRN COU GH BENZONATATE (TESSALON) 100 MG PO Q8H PRN PRN CO UGH #12 CAPS Prov: 07/04/21 BUTALBITAL/APAP/CAFF 50/300/40 MG (FIORICET) 1 C AP PO Q4H PRN PRN Headache BUTALBITAL/APAP/CAFF 50/300/40 MG (FIORICET) 1 CAP PO Q4H PRN PRN Headache #30 CAPS Prov: 04/28/21 NAPROXEN (NAPROSYN) 500 MG PO BID PRN PRN PAIN NAPROXEN (NAPROSYN) 500 MG PO BID PRN PRN PAIN #20 TABS Prov: 04/28/21 metroNIDAZOLE (FLAGYL) 500 MG PO Q12H 7 Days #14 TABS Prov: 01/01/22 CLINDAMYCIN PHOSPHATE (CLEOCIN T 1%) 1 APPLIC TO PICAL BID CLINDAMYCIN PHOSPHATE (CLEOCIN T 1%) 1 APPLIC T OPICAL BID #30 GM Prov: 01/01/22 CEPHALEXIN (KEFLEX) 500 MG PO Q12H 14 Days #28 CAPS Prov: 01/01/22 PHENAZOPYRIDINE (PYRIDIUM) 100 MG PO Q8H PRN PRN DYSURIA PHENAZOPYRIDINE (PYRIDIUM) 100 MG PO Q8H PRN OR N DYSURIA #6 TABS Prov: 01/01/22 BROMPHENIRAMINE/PSEUDOEPHED/ DM ([id number] SYR) 10 ML PO Q6H PRN PRN COUGH BROMPHENIRAMINE/PSEUDOEPHED/DM (BROMPHENIR-PSEU DOEPHED-DM SYR) 10 ML PO Q6H PRN PRN COUGH #200 ML Prov: 06/20/21 BENZONATATE (TESSALON) 200 MG PO Q8H PRN PRN COU GH BENZONATATE (TESSALON) 200 MG PO Q8H PRN PRN CO UGH #20 CAPS Prov: 06/20/21 ALBUTEROL (PROAIR HFA 90 MCG/ACT 8.5 GM) 2 PUFF INH RTQ4H PRN PRN DYSPNEA/ WHEEZING ALBUTEROL (PROAIR HFA 90 MCG/ACT 8.5 GM) 2 PUFF INH RTQ4H PRN PRN DYSPNEA/ WHEEZING #8.5 GM Prov: 06/20/21 Reported Medications LITHIUM CARBONATE 300 MG PO TID Past Medical History: Reports: Depression/mood disorder (bipolar d/o), Hypertension, Dyslipidemia. Additional Medical History ruptured ovarian cyst, vitamin D def Past Surgical History: Reports: Cholecystectomy, Tonsillectomy. Alcohol Use Alcohol use (SOCIAL) Drug Use ECSTASY Smoking status for patients 13 years old or olde r: Current some day smoker Other Social History Uses e-cigarettes/vapes Physical Exam Vital Signs Vital Signs First Documented: Result Date Time Pulse Ox 100 08/26 1911 B/P 110/80 08/26 1911 B/P Mean 90 08/26 1911 O2 Delivery Room air 08/26 1911 Temp 37.7 08/26 1911 Pulse 107 08/26 1911 Resp 18 08/26 1911 Last Documented: Result Date Time Pulse Ox 98 08/26 2321 B/P 114/79 08/26 2321 B/P Mean 90 08/26 2321 O2 Delivery Room air 08/26 2321 Temp 36.9 08/26 2321 Pulse 86 08/26 2321 Resp 18 08/26 2321 Review of Vital Signs Reviewed Focused PE General/Const General/Const Awake, Alert MS Head Head Atraumatic, Normocephalic Eyes Eyes PERRL, EOMI, No scleral icterus Ears/Nose/Throat Ears/Nose/Throat Airway patent, Mucous membrane s moist, Pharynx NL Resp/Chest Respiratory/Chest Breath sounds NL, Breath soun ds = bilat, No respiratory distress, No rales, No rhonchi, No wheezing Cardiovascular Cardiovascular Heart rate NL, Regular rhythm, H eart sounds NL, Peripheral circulation NL Abdomen/GI Abdomen/GI Soft, McBurney's non-tender, No guar ding, No rebound, BS normoactive, No distention, No hernia, No palpab le mass, No pulsatile mass Tenderness/Guarding/Rebound Tender LUQ. MS Back Back Full range of motion, Painless range of mo tion, Non-tender, No CVA tenderness Skin Skin Color NL, Warm, Dry, Turgor NL Neurologic Neurologic Oriented X3, Speech NL, No motor def icits, No sensory deficits Interpretation Diagnostics Lab Results Interpretation Results Laboratory Tests 08/26/222132: [Embedded Image Not Available] Laboratory Tests: 08/26 Chemistry Sodium (136 - 145 mmol/L) 137 Potassium (3.5 - 5.1 mmol/L) 3.7 Chloride (98 - 107 mmol/L) 106.0 Carbon Dioxide (21 - 32 mmol/L) 23.0 Anion Gap (10 - 20) 11.7 BUN (7 - 18 mg/dL) 8 Creatinine (0.55 - 1.02 mg/dL) 0.60 Glomerular Filtr Rate (>=60 mL/min) > 60 BUN/Creatinine Ratio (10 - 20) 13.3 Glucose (74 - 106 mg/dL) 105 Calcium (8.5 - 10.1 mg/dL) 7.9 L Total Bilirubin (0.0 - 1.0 mg/dL) 0.40 Direct Bilirubin (0.0 - 0.20 mg/dL) < 0.10 AST (15 - 37 IUnit/L) 21 ALT (12 - 78 IUnit/L) 17 Total Alk Phosphatase (45 - 117 IUnit/L) 80 Troponin I (0 - 45 pg/mL) <4.0 Total Protein (6.4 - 8.2 gram/dL) 6.5 Albumin (3.4 - 5.0 g/dL) 3.4 Globulin (2.7 - 4.2 gram/dL) 3.1 Albumin/Globulin Ratio (0.75 - 1.50) 1.1 Lipase (12.00 - 57.00 U/L) 48 Serum , Qual (NEGATIVE) NEGATIVE Hematology WBC (4.5 - 12.5 K/mm3) 5.0 RBC (3.7 - 5.2 mill/mm3) 4.97 Hgb (11.5 - 15.5 gram/dL) 14.1 Hct (36.0 - 46.0 %) 42.7 MCV (80 - 98 fL) 85.9 MCH (27.0 - 33.0 picogram) 28.4 MCHC (33.0 - 36.0 gram/dL) 33.0 RDW (11.6 - 16.2 %) 13.1 Plt Count (150 - 450 K/mm3) 230 MPV (6.7 - 11.0 fL) 10.3 Urines Urine Color (YELLOW) YELLOW Urine Appearance (CLEAR) CLEAR Urine pH (5.0 - 8.0) 5.5 Ur Specific [place] (1.001 - 1.035) 1.021 Urine Protein (NEGATIVE mg/dL) NEGATIVE Urine Glucose (UA) (NEGATIVE mg/dL) NEGATIVE Urine Ketones (NEGATIVE mg/dL) NEGATIVE Urine Blood (NEGATIVE mg/dL) 0.03 mg/dL (Trace) H Urine Nitrite (NEGATIVE) NEGATIVE Urine Bilirubin (NEGATIVE mg/dL) NEGATIVE Urine Urobilinogen (NEGATIVE mg/dL) Normal Ur Leukocyte Esterase (NEGATIVE Norman/uL) NEGATI VE Urine RBC (0 - 5 #/HPF) 0-2 Urine WBC (0 - 5 per HPF) 0-5 Ur Epithelial Cells (FEW per HPF) FEW Urine Bacteria (NONE #/HPF) NONE SEEN Urine Mucus (FEW #/LPF) FEW Recent Impressions: RADIOLOGY - XR CHEST 1 V 08/26 1950 Report Impression - Status: SIGNED Entered: 08/26/20222011 IMPRESSION: No acute cardiopulmonary process. Location: Impression By: Robin Tai M.D. CAT SCAN - CT ABD PELVIS W/CONT 08/26 2252 Report Impression - Status: SIGNED Entered: 08/26/20226 IMPRESSION: No acute abnormality of the abdomen or pelvis. SL: [id number] Impression By: Robin Tai M.D. Lab Imaging Statement Laboratory radiographic studies reviewed and con sidered in the medical decision-making. Point of Care Testing Pulse Oximetry Pulse Ox % 100 On: Room air Interpretation Interpreted by me, Pulse oximetr y normal ECG #1 Interpretation Date 08/26/22 Time 1933 Interpreted by and reviewed by me, ED physician NL ECG Interpretation Normal rate, Normal sinus rhythm, No acute ischemic changes, No STEMI, Normal QRS, Normal ST waves, Normal T waves, Normal axis, Normal intervals Re-Evaluation MDM )( Re-Evaluation/Progress #1 Text/Dict Note Patient states she still has abdominal pain. Rev iewed lab work with her thus far showing really no acute abnormality. Patient is mildly tender in the left upper quadrant. Will obtain CT scan for further evaluation. Patient informed. Discussed care thus far with Dr. Ly. She wi ll assume patient care and determine final disposition. Time of Re-Eval 2236 )( Re-Eval Status Unchanged ED Course Medication(s) Ordered Medication(s) Ordered: Central Nervous System Agents Sig/Vidal Start time Last Medication Dose Route Stop Time Status Admin Morphine Sulfate 4 MG X1ED STA 08/26 2238 DC IV 08/26 2239 2313 Ketorolac 15 MG X1ED STA 08/26 2001 DC 08/26 Tromethamine IV 08/26 Diagnostic Agents Sig/Vidal Start time Last Medication Dose Route Stop Time Status Admin Iopamidol 0 .STK-MED ONE 08/26 2250 DC 08/26 .ROUTE 2253 Gastrointestinal Drugs Sig/Vidal Start time Last Medication Dose Route Stop Time Status Admin Ondansetron HCl 4 MG X1ED STA 08/26 2027 DC IV 08/26 Patient Discharge Departure Vital Signs/Condition Vital Signs First Documented: Result Date Time Pulse Ox 100 08/26 1911 B/P 110/80 08/26 1911 B/P Mean 90 08/26 1911 O2 Delivery Room air 08/26 1911 Temp 37.7 08/26 1911 Pulse 107 08/26 1911 Resp 18 08/26 1911 Last Documented: Result Date Time Pulse Ox 98 08/26 2321 B/P 114/79 08/26 2321 B/P Mean 90 08/26 2321 O2 Delivery Room air 08/26 2321 Temp 36.9 08/26 2321 Pulse 86 08/26 2321 Resp 18 08/26 2321 All vital signs available at the time of this en try have been reviewed. Clinical Impression Clinical Impression Primary Impression: Abdominal pain Quality Measures 12-Lead ECG for CP Performed documented Madeline Ly 08/27/22 0013: Re-Evaluation MDM Re-Evaluation/Progress #2 Text/Dict Note Patient CT scan negative for acute patho logy. test negative. Patient on reexamination was found sleeping in recliner chair. Upon awakening patient says although she had a mild form of this pain p reviously the severe pain started today at work. We discussed with patient her results. Patient says that her PCP is planning to send her to GI but h as not yet made the referral. We will give her information on local gastroente rologist for her to follow-up with. She is also instructed to please sandra ayala with her regular doctor as well. Patient was given return precautions and she voi valentino understanding. Time of Eval 001 Patient Discharge Departure Disposition Decision Discharge )( Discharged to Home Yes )( Time 13 )( Date 08/27/22 Discharge/Care Plan Counseled Regarding Diagnosi s, Lab results, Imaging studies, Prescriptions, Need for follow-up, When to return to ED (Auto) Prescriptions Current Visit Scripts DICYCLOMINE (BENTYL) 10 MG PO Q6H PRN PRN ABDOMI NAL PAIN/CRAMPING DICYCLOMINE (BENTYL) 10 MG PO Q6H PRN PRN ABDOM INAL PAIN/CRAMPING #30 CAPS traMADol (ULTRAM) 50 MG PO Q6H PRN PRN ACUTE MEENAKSHI N traMADol (ULTRAM) 50 MG PO Q6H PRN PRN ACUTE PA IN #15 TABS Patient Instructions ED Abd Pain Unkn Fem Ch Referrals Provider Referral: Naif Sandoval MD Follow-Up: 1 Week Address: [address] [facility] [place] [address] Provider Referral: Noah Florentino MD Follow-Up: 1 Week Address: [address] [facility] [address] [place] [address] Provider Referral: Vivi Arroyo MD Follow-Up: 1 Week Address: [address] [facility] [address] [place] [address] at 2238 at 0017 Addendum 1: 08/27/22 0030 by Madeline Ly Patient Addendum Addendum Went back to place patient i s discharged before at bedside and patient says that she is having some return of pain which is causi ng nausea. We will give the patient a dose of medication for antiemetic as well as Pepcid and Bentyl and if that improves her pain patient can again be disc harged. at [address] [facility] #:[id number] END OF REPORT 2021-12-31 23:57:00-00:00 [facility] ([facility]) EMERGENCY PROVIDER REPORT REPORT#:[id number] REPORT STATUS: Signed DATE:12/31/21 TIME: 2356 PATIENT: JERI LOPEZ UNIT #: [id number] ROOM/BED: AGE: 41 SEX: F PCP PHYS: No Primary or Family Ph ysician SERVICE AUTHOR: Moo Jones FLOOR INSTALLATION MECHANIC * ALL edits or amendments must be made on the [employer]/computer document * Moo Jones 12/31/212356: HPI- Female Free Text HPI Notes Free Text HPI Notes 41-year-old female states th at she started having UTI symptoms 3 days ago and it feels like her vagina is inflamed and hurts real ly when she urinates. Patient also states that it hurts if she were to have in tercourse but denies any discharge or genital sores o r foul smell. Patient admits that she did shave her pubic area that may cause inflamed. General Confirmed Patient Yes Patient Type New patient Initial Greet Date/Time 12/31/21 5721 Presentation Chief Complaint Urination painful Hx Obtained From Patient )( Sudden in Onset? No Onset Occurred Days ago Progression since Onset Unchanged Context of Onset Spontaneous Caused by No trauma by history Location Perineum, Vulva R, Vulva L Quality Painful Severity: Onset Pain level 2 out of 10 Severity: Current Pain level 6 out of 10 Associated with Reports: UTI symptoms. Denies: Abdominal pain, A brasion, Anorexia, Chills, Constipation, Fever, Hematemesis, Laceration, Na usea, Rash, Vomiting. Associated Other Pt denies other symptoms Exacerbated by Lifting, Movement, Urination Relieved by Nothing Context Related History Denies: Abdominal surgery, A dhesions intra-abdominal, Cancer, Diabetes mellitus, Endometriosis, Ovarian torsi on, Pelvic inflam disease, Polycystic ovary disease, Pyelonephritis, Single kidney, Tubo-ovarian absc ess, Tubo-ovarian cyst, Ureterolithiasis, Urinary tr act infection, Urolithiasis, Vesicoureteral reflux. Immunization Status General All up to date Risk- Female Risk Stratification Ectopic Risk factors reviewed Review of Systems Focused Review of Systems Constitutional Denies: Chills, Fever, Lethargy. Ears/Nose/Throat Denies: Anosmia, Ear drainag e R, Ear drainage L, Ear drainage bilat, Ear ringing R, Ear ringing L, Ear ringing bilat, Earache R, Earache L, Earache bilat, Hearing loss R, Hearing loss L, Hearing loss bilat, Mouth pain, Nasal congestion , Nose bleeding, Sinus problem, Sore throat, Thr oat pain, Throat swelling, Tongue pain, Tongue swelling, Toothache, Voice c hange. GI Denies: Abdominal pain, Diarrhea, Nausea, Vomiti ng. Female Reports: Dysuria, Pelvic pain. Denies: , Vaginal bleeding - abnl, Vaginal discharge. Musculoskeletal Denies: Back pain, Extremity pain. Endocrine Denies: Polyuria, Weight loss. Skin Denies: Diaphoresis, Rash. Neurologic Denies: Change LOC, Dizziness, Focal weakness, H eadache, Numbness, Slurred speech. Past Medical History - Adult Stated Complaint COUGH ,BURNING IN PRIVATEAREA Allergies Coded Allergies: No Known Allergies (12/31/21) Home Medications Active Scripts CEPHALEXIN (KEFLEX) 500 MG PO Q8HR 7 Days #21 CAPS Prov: 07/04/21 FLUTICASONE PROPIONATE (FLONASE 50 MCG/ACT NASAL ) 1 SPRAY NASAL BID 7 Days #16 GM Prov: 07/04/21 BENZONATATE (TESSALON) 100 MG PO Q8H PRN PRN COU GH BENZONATATE (TESSALON) 100 MG PO Q8H PRN PRN CO UGH #12 CAPS Prov: 07/04/21 BUTALBITAL/APAP/CAFF 50/300/40 MG (FIORICET) 1 C AP PO Q4H PRN PRN Headache BUTALBITAL/APAP/CAFF 50/300/40 MG (FIORICET) 1 CAP PO Q4H PRN PRN Headache #30 CAPS Prov: 04/28/21 NAPROXEN (NAPROSYN) 500 MG PO BID PRN PRN PAIN NAPROXEN (NAPROSYN) 500 MG PO BID PRN PRN PAIN #20 TABS Prov: 04/28/21 D-METHORPHAN HB/P-EPD HCL/BPM (BROMPHENI [id number] SYR) 10 ML PO Q6H PRN PRN COUGH D-METHORPHAN HB/P-EPD HCL/BPM (BROMPHENIR-PSEUD OEPHED-DM SYR) 10 ML PO Q6H PRN PRN COUGH #200 ML Prov: 06/20/21 BENZONATATE (TESSALON) 200 MG PO Q8H PRN PRN COU GH BENZONATATE (TESSALON) 200 MG PO Q8H PRN PRN CO UGH #20 CAPS Prov: 06/20/21 ALBUTEROL (PROAIR HFA 90 MCG/ACT 8.5 GM) 2 PUFF INH RTQ4H PRN PRN DYSPNEA/ WHEEZING ALBUTEROL (PROAIR HFA 90 MCG/ACT 8.5 GM) 2 PUFF INH RTQ4H PRN PRN DYSPNEA/ WHEEZING #8.5 GM Prov: 06/20/21 Reported Medications LITHIUM CARBONATE 300 MG PO TID Past Medical History: Reports: Depression/mood disorder (bipolar d/o), Hypertension, Dyslipidemia. Additional Medical History ruptured ovarian cyst, vitamin D def Past Surgical History: Reports: Cholecystectomy, Tonsillectomy. Alcohol Use Alcohol use (SOCIAL) Drug Use ECSTASY Smoking status for patients 13 years old or olde r: Former Smoker Other Social History Uses e-cigarettes/vapes Physical Exam Vital Signs Vital Signs First Documented: Result Date Time Pulse Ox 100 12/315 B/P 127/88 12/31 2335 B/P Mean 101 12/31 2334 O2 Delivery Room air 12/31 2334 Temp 37.2 12/31 2334 Pulse 106 12/31 233 Resp 16 12/31 2334 Last Documented: Result Date Time Pulse Ox 100 12/31 2335 B/P 127/88 12/31 2335 B/P Mean 101 12/31 2334 O2 Delivery Room air 12/31 2334 Temp 37.2 12/31 2334 Pulse 106 12/31 2334 Resp 16 12/31 2334 Review of Vital Signs Reviewed Basic Physical Exam Basic PE GEN: Well appearing /NAD, HEAD: Atraumatic/NC, EYES: PERRL, conj clear, ENT: Membranes moist, NECK: Supple, RESP: No res p distress, CV: Reg rate rhythm, ABD: Soft/non-tender , EXT: No gross abnormality, SKIN: No rashes, warm/ dry, NEURO: alert oriented, NEURO: gross movemen t NL, PSYCH: NL thought content Focused PE General/Const General/Const Awake, Alert, Well appearing Resp/Chest Respiratory/Chest Breath sounds NL, Breath soun ds = bilat, No respiratory distress, No rales, No rhonchi, No wheezing Cardiovascular Cardiovascular Heart rate NL, Regular rhythm, H eart sounds NL, Peripheral circulation NL Abdomen/GI Abdomen/GI Soft, Non-tender, No guarding, No re bound MS Back Back Inspection NL, Non-tender, No CVA tenderne ss Skin Skin Color NL, No rash, Warm, Dry, Turgor NL Genitourinary General Exam deferred Free Text PE Notes Free Text PE Notes Physical exam is unremarkable. ENT is unremarkab le. Bilateral breath sounds are clear and equal with no wheezes or rales or respiratory distress patient has good heart tones with no murmur and good PMS wit h no pedal edema. Normal wall soft nondistended with no pain on deep palpitati on and no CVA tenderness. Patient has noted suprapubic tenderness on deep palpitation. ABCs intact Interpretation Diagnostics Lab Results Interpretation Results Laboratory Tests: 12/31 2340 Urines Urine Color (YELLOW) Dark-Yellow Urine Appearance (CLEAR) Cloudy H Urine pH (5.0 - 8.0) 6.0 Ur Specific [place] (1.001 - 1.035) 1.039 Urine Protein (NEGATIVE mg/dL) 50 (1+) H Urine Glucose (UA) (NEGATIVE mg/dL) NEGATIVE Urine Ketones (NEGATIVE mg/dL) NEGATIVE Urine Blood (NEGATIVE mg/dL) 0.03 mg/dL (Trace) H Urine Nitrite (NEGATIVE) NEGATIVE Urine Bilirubin (NEGATIVE mg/dL) NEGATIVE Urine Urobilinogen (NEGATIVE mg/dL) 3.0 (1+) H Ur Leukocyte Esterase (NEGATIVE Norman/uL) 500 Norman /uL (3+) H Urine RBC (0 - 5 #/HPF) 101-150 Urine WBC (0 - 5 per HPF) >200 H Ur Epithelial Cells (FEW per HPF) MOD Calcium Oxalate Crystal (NONE #/HPF) FEW H Urine Bacteria (NONE #/HPF) FEW H Urine Mucus (FEW #/LPF) FEW Urine HCG, Qual NEGATIVE Microbiology: Date/Time Procedure - Status Source Growth 01/01 2340 Urine Culture - COMP URINE Point of Care Testing Pulse Oximetry Pulse Ox % 100 On: Room air Interpretation Interpreted by me, Pulse oximetr y normal Time 2333 Procedures Free Text Proc Notes Free Text Proc Notes Patient is refusing to be straight cath due to p ain patient is aware of how difficult can be without treating and diagnosing UTI. Re-Evaluation MDM Free Text MDM Notes Free Text MDM Notes Informed patient of exam, lab, and imaging findi ngs. Educated on diagnoses, treatment, supportive measur es, return precautions and instructions for PCP f/u in 24-48 hours. Patient verbalizes under standing and agrees with plan of care. Patient is nontoxic appearing in NAD, with clear BBS/CE with good Heart tone with no CP or SOB and no fever and denies pain a t time of discharge. Re-Evaluation/Progress Re-Evaluation/Progress Text/Dict Note Patient tolerated 4 ounces of fluid without diff iculty and patient states he feels much better and is ready to go home. Time of Re-Eval 0020 Re-Eval Status Unchanged Eval Following Treatment Condition unchanged Pain Re-Evaluation Pain unchanged Exam Post Tx - General Active, Alert, Appears n on-toxic, Appears well, Vital signs stable, Capillary refill normal, Hydration normal Exam Post Tx - Sys Review Lungs clear, Abdomen soft, Abdomen nontender, Mental status baseline Plan Post Re-Eval PO challenge, Plan discharge Tissue Perfusion Reassessment Patient tissue perfusion reassessment completed. ED Course Medication(s) Ordered Medication(s) Ordered: Anti-Infective Agents Sig/Vidal Start time Last Medication Dose Route Stop Time Status Admin Ceftriaxone Sodium 1,000 MG X1ED STA 01/01 0104 AC 01/01 Lidocaine HCl 2.1 ML IM 01/01 0309 0154 Patient Discharge Departure Vital Signs/Condition Vital Signs First Documented: Result Date Time Pulse Ox 100 12/31 2334 B/P 127/88 12/31 2334 B/P Mean 101 12/31 2334 O2 Delivery Room air 12/31 2334 Temp 37.2 12/31 2334 Pulse 106 12/31 2334 Resp 16 12/31 2334 Last Documented: Result Date Time Pulse Ox 100 12/31 2334 B/P 127/88 12/31 2334 B/P Mean 101 12/31 2334 O2 Delivery Room air 12/31 2334 Temp 37.2 12/31 2334 Pulse 106 12/31 2334 Resp 16 12/31 2334 All vital signs available at the time of this en try have been reviewed. Condition Stable Clinical Impression Clinical Impression Primary Impression: Bacterial vaginitis Secondary Impressions: UTI (urinary tract infect ion) Disposition Decision Discharge )( Discharged to Home Yes )( Time 010 )( Date 01/01/22 Discharge/Care Plan Counseled Regarding Diagnosis, Lab resul ts, Prescriptions, Need for follow-up, When to return to ED, Smoking cessation Rx Drug Database Reviewed Yes (Auto) Prescriptions Current Visit Scripts metroNIDAZOLE (FLAGYL) 500 MG PO Q12H 7 Days #14 TABS CLINDAMYCIN PHOSPHATE (CLEOCIN T 1%) 1 APPLIC TO PICAL BID CLINDAMYCIN PHOSPHATE (CLEOCIN T 1%) 1 APPLIC T OPICAL BID #30 GM CEPHALEXIN (KEFLEX) 500 MG PO Q12H 14 Days #28 CAPS PHENAZOPYRIDINE (PYRIDIUM) 100 MG PO Q8H PRN PRN DYSURIA PHENAZOPYRIDINE (PYRIDIUM) 100 MG PO Q8H PRN OR N DYSURIA #6 TABS TAKE AFTER MEALS. Prescriptions Reviewed Risks, Benefits, Alternat suad treatment Patient Instructions ED Bacterial Vaginosis (BV) , Urinary Tract Infections in Women Discharge Note I have spoken with the patie nt and/or caregivers. I have explained the patient's condition, diagnoses and sandi atment plan based on the information available to me at this time. I have answered the patient's and/ or caregiver's questions and addressed any concerns. The patient and/or careg nita have as good an understanding of the patient 's diagnosis, condition and treatment plan as can be expected at this point. The vital signs have bee n stable. The patient's condition is stable and appr opriate for discharge from the emergency department. The patient will pursue further outpatient evalu ation with the primary care physician or other designated or consulting phys ician as outlined in the discharge instructions. The patient and/or caregivers are agreeable to this plan of care and follow-up instructions have been exp lained in detail. The patient and/or caregivers have received these instructio ns in written format and have expressed an understanding of the discharge inst ructions. The patient and/or caregivers are aware that any significant change in condition or worsening of symptoms should prompt an immediate return to [facility] or the closest emergency department or a call to 911. Quality Measures BP F/U for HTN BP in normal range Preg Test for Women w/Abd Pa in Female age 14-50, Complaint of abdominal pn, Any preg test ordered Smoking Cessation Screened, non user Madeline Ly 01/03/22 1922: Patient Discharge Departure Discharge/Care Plan Referrals Provider Referral: Kaleigh Major MD Address: [address] [place] [address] [address] [place] [address] Supervising Physician Note MidLv Saw Pt Alone I have reviewed the PA/FLOOR INSTALLATION MECHANIC's note and plan of car e. I was available for consultation as needed at al l times during the patient's visit in the emergency department. Electronically Signed by Moo Jones NP on 03/17 at 0242 at 1922 RPT #:[id number] END OF REPORT 2021-07-04 13:21:00-00:00 [facility] ([facility]) EMERGENCY PROVIDER REPORT REPORT#:[id number] REPORT STATUS: Signed DATE:07/04/21 TIME: 1321 PATIENT: JERI LOPEZ UNIT #: [id number] ROOM/BED: AGE: 40 SEX: F PCP PHYS: No Primary or Family Ph ysician SERVICE AUTHOR: Vic Kinsey DO * ALL edits or amendments must be made on the el [facility]/computer document * HPI-URI/Cough/Cold General Initial Greet Date/Time 07/04/21 1217 Presentation Chief Complaint Cough, non-productive, Fever, So re throat Hx Obtained From Patient Onset Occurred Weeks ago Symptom Duration Constant Progression since Onset Constant Context of Onset No sick contacts Location RUQ AND R FLANK PAIN Quality Aching Radiation Does not radiate Severity: Onset Mild Severity: Current Moderate Associated with Reports: Abdominal pain, Body aches, Chest pain, Cough, Fever, Nausea, Rhinorrhea, Sore throat. Denies: Arthralgia, Susi rrhea, Headache, Rash, Shortness of breath, Vomiting. Free Text HPI Notes Free Text HPI Notes 40-year-old female history o f depression, hypertension, cholecystectomy presents with productive cough over t he last 6 months, worse in the last 1 month with low -grade fever, body aches and chest pain only whe n coughing. Also notes right upper quadrant and right fla nk pain that has been going on for last 3 to 4 days as well as pain with urination. Denies nausea or vomiting, diarrhea, does states she has some urinary hesitancy and mild c onstipation. Also notes tingling and warm feeling in bilateral hands and feet that comes and goes. Denies any weakness to her extremities, headache , blurry vision or dizziness. Symptoms got worse after she used Gwendolyn 2 days a go. Review of Systems ROS Statements All systems rev neg except as marked. Focused Review of Systems Constitutional Reports: Chills, Fever. Denies: Lethargy. Eyes Denies: Eye pain bilat, Redness bilat, Visual lo ss bilat. Respiratory Reports: Cough, non-producti ve. Denies: Cough, productive, Shortness of breath. GI Reports: Abdominal pain, Constipation. Denies: D iarrhea, Nausea, Vomiting. Skin Denies: Diaphoresis, Rash. Allergy/Immun Denies: Hives, Itching. Neurologic Reports: Tingling. Denies: Change LOC, Dizziness , Focal weakness, Headache, Numbness, Slurred speech. Past Medical History - Adult Stated Complaint CHEST PAIN WITH L.ARM TINGLING. COUGH,SOB Allergies Coded Allergies: No Known Allergies (01/11/20) Home Medications Active Scripts BUTALBITAL/APAP/CAFF 50/300/40 MG (FIORICET) 1 C AP PO Q4H PRN PRN Headache BUTALBITAL/APAP/CAFF 50/300/40 MG (FIORICET) 1 CAP PO Q4H PRN PRN Headache #30 CAPS Prov: 04/28/21 NAPROXEN (NAPROSYN) 500 MG PO BID PRN PRN PAIN NAPROXEN (NAPROSYN) 500 MG PO BID PRN PRN PAIN #20 TABS Prov: 04/28/21 D-METHORPHAN HB/P-EPD HCL/BPM (BROMPHENI [id number] SYR) 10 ML PO Q6H PRN PRN COUGH D-METHORPHAN HB/P-EPD HCL/BPM (BROMPHENIR-PSEUD OEPHED-DM SYR) 10 ML PO Q6H PRN PRN COUGH #200 ML Prov: 06/20/21 BENZONATATE (TESSALON) 200 MG PO Q8H PRN PRN COU GH BENZONATATE (TESSALON) 200 MG PO Q8H PRN PRN CO UGH #20 CAPS Prov: 06/20/21 ALBUTEROL (PROAIR HFA 90 MCG/ACT 8.5 GM) 2 PUFF INH RTQ4H PRN PRN DYSPNEA/ WHEEZING ALBUTEROL (PROAIR HFA 90 MCG/ACT 8.5 GM) 2 PUFF INH RTQ4H PRN PRN DYSPNEA/ WHEEZING #8.5 GM Prov: 06/20/21 Reported Medications LITHIUM CARBONATE 300 MG PO TID Pt reports no significant: Family history Past Medical History: Reports: Depression/mood disorder (bipolar d/o), Hypertension, Dyslipidemia. Additional Medical History ruptured ovarian cyst, vitamin D def Past Surgical History: Reports: Cholecystectomy, Tonsillectomy. Alcohol Use Alcohol use (SOCIAL) Drug Use ECSTASY Smoking status: Smoking status for patients 13 years old or old er: Current some day smoker Other Social History Uses e-cigarettes/vapes Physical Exam Vital Signs Vital Signs First Documented: Result Date Time Pulse Ox 99 07/04 1214 B/P 130/80 07/04 1214 B/P Mean 96 07/04 121 O2 Delivery Room air 07/04 1214 Temp 37.4 07/04 121 Pulse 111 07/04 1214 Resp 18 07/04 1214 Last Documented: Result Date Time Pulse Ox 100 07/04 1517 B/P 123/85 07/04 151 B/P Mean 97 07/04 151 Temp 36.8 07/04 151 Pulse 114 07/04 1517 Resp 18 07/04 1517 O2 Delivery Room air 07/04 1214 Review of Vital Signs Reviewed Focused PE General/Const General/Const Awake, Alert, Well appearing, Not toxic appearing Eyes Eyes PERRL Ears/Nose/Throat Ears/Nose/Throat Airway patent, Mucous membrane s moist, Pharynx NL, Tympanic membs NL, Ext aud canal NL, Nose exam NL, No sin us tenderness MS Neck Neck Supple, No meningismus, Full range of motion, No adenopathy, No swelling , Non-tender Resp/Chest Respiratory/Chest Breath sounds = bilat, No res piratory distress, No rales, No rhonchi, No wheezing, No retractions, No stri antonio Cardiovascular Cardiovascular Regular rhythm, Heart sounds NL, Peripheral circulation NL, MILD TACHYCARDIA Abdomen/GI Abdomen/GI Soft, Non-tender, No guarding, No re bound Skin Skin Color NL, No rash, Warm, Dry, Turgor NL Neurologic Neurologic Oriented X3, Speech NL, No motor def icits, No sensory deficits Interpretation Diagnostics Lab Results Interpretation Results Laboratory Tests 07/04/21 1321: [Embedded Image Not Available] 07/04/21 1321: [Embedded Image Not Available] Laboratory Tests: 07/04 1321 1222 Chemistry Sodium (136 - 145 mmol/L) 139 Potassium (3.5 - 5.1 mmol/L) 3.8 Chloride (98 - 107 mmol/L) 110.0 H Carbon Dioxide (21 - 32 mmol/L) 21.0 Anion Gap (10 - 20) 11.8 BUN (7 - 18 mg/dL) 8 Creatinine (0.55 - 1.02 mg/dL) 0.80 Glomerular Filtr Rate (>=60 mL/min) > 60 BUN/Creatinine Ratio (10 - 20) 10.7 Glucose (74 - 106 mg/dL) 94 Calcium (8.5 - 10.1 mg/dL) 9.3 Total Bilirubin (0.0 - 1.0 mg/dL) 0.50 Direct Bilirubin (0.0 - 0.20 mg/dL) 0.20 AST (15 - 37 IUnit/L) 20 ALT (12 - 78 IUnit/L) 15 Total Alk Phosphatase (45 - 117 IUnit/L) 52 Troponin I (0 - 45 pg/mL) <4.0 Total Protein (6.4 - 8.2 gram/dL) 7.0 Albumin (3.4 - 5.0 g/dL) 4.4 Globulin (2.7 - 4.2 gram/dL) 2.6 L Albumin/Globulin Ratio (0.75 - 1.50) 1.7 H Lipase (12.00 - 57.00 U/L) 31 Serum , Qual (NEGATIVE) NEGATIVE Coagulation D-Dimer (0 - 500 ng/mLFEU) 233.00 Hematology WBC (4.5 - 12.5 K/mm3) 7.3 RBC (3.7 - 5.2 mill/mm3) 5.25 H Hgb (11.5 - 15.5 gram/dL) 15.3 Hct (36.0 - 46.0 %) 45.1 MCV (80 - 98 fL) 85.9 MCH (27.0 - 33.0 picogram) 29.1 MCHC (33.0 - 36.0 gram/dL) 33.9 RDW (11.6 - 16.2 %) 12.8 Plt Count (150 - 450 K/mm3) 286 MPV (6.7 - 11.0 fL) 10.2 Toxicology Urine Opiates Screen (<300 ng/mL) NEGATIVE Urine Methadone Screen (<300 ng/mL) NEGATIVE Urine Barbiturates (<200 ng/mL) NEGATIVE Ur Phencyclidine Scrn (<25 ng/mL) NEGATIVE Ur Amphetamines Screen (<1000 ng/mL) POSITIVE U Benzodiazepines Scrn (<200 ng/mL) NEGATIVE Urine Cocaine Screen (<300 ng/mL) NEGATIVE Urine Cannabinoids (<50 ng/mL) NEGATIVE Urines Urine Color (YELLOW) YELLOW Urine Appearance (CLEAR) CLEAR Urine pH (5.0 - 8.0) 6.5 Ur Specific [place] (1.001 - 1.035) 1.033 Urine Protein (NEGATIVE mg/dL) 30 (1+) H Urine Glucose (UA) (NEGATIVE mg/dL) NEGATIVE Urine Ketones (NEGATIVE mg/dL) 10 (1+) H Urine Blood (NEGATIVE mg/dL) Negative Urine Nitrite (NEGATIVE) NEGATIVE Urine Bilirubin (NEGATIVE mg/dL) NEGATIVE Urine Urobilinogen (NEGATIVE mg/dL) 2.0 (1+) H Ur Leukocyte Esterase (NEGATIVE Norman/uL) 75 Norman/ uL (1+) H Urine RBC (0 - 5 #/HPF) 3-5 Urine WBC (0 - 5 per HPF) 6-10 H Ur Epithelial Cells (FEW per HPF) FEW Urine Bacteria (NONE #/HPF) FEW H Urine Mucus (FEW #/LPF) MODERATE H 07/04 1215 Serology SARS-CoV-2 Ag (Rapid) (NEGATIVE) NEGATIVE Microbiology: Date/Time Procedure - Status Source Growth 07/04 1330 Group A Streptococcus Screen (VINCENT) - CAN THROAT Cancelled: ORDERED BUT NOT GIVEN, JUAN CARLOS Espinoza DISCHARGED 07/04 1215 Influenza Virus Type B Antigen - COM P NASOPHARG 07/04 1215 Influenza Virus Type A Antigen - COM P NASOPHARG Recent Impressions: RADIOLOGY - XR CHEST 1 V 07/04 1240 Report Impression - Status: SIGNED Entered: 07/04/2021 1320 IMPRESSION: No acute cardiopulmonary process. Location: [facility] Impression By: [id number] - Elijah Rothman MD ECG #1 Interpretation ECG Interpretation Note EKG at 1201 shows sinus tachycardia, rate 105, n ormal axis, normal intervals, nonspecific ST-T wave changes, no STEMI Re-Evaluation MDM Free Text MDM Notes Free Text MDM Notes [id number], states she feels much better, abd non-tender, tolerating po fluids, vitals stable although remains tachycard ic, pt appears well and non- toxic, likely from recent me thamphetamine use. Discussed option for observing pt , more fluids and re-assess, pt would li ke to go home, feels well, will f/u w/ pcp and return to ED w/ any concerns ED Course Medication(s) Ordered Medication(s) Ordered: Electrolytic, Caloric, And Vicky Sig/Vidal Start time Last Medication Dose Route Stop Time Status Admin Sodium Chloride 1,000 ML BOLUS 07/04 1315 DCD IV 08/03 1314 Patient Discharge Departure Vital Signs/Condition Vital Signs First Documented: Result Date Time Pulse Ox 99 07/04 1214 B/P 130/80 07/04 1214 B/P Mean 96 07/04 1214 O2 Delivery Room air 07/04 1214 Temp 37.4 07/04 1214 Pulse 111 07/04 1214 Resp 18 07/04 1214 Last Documented: Result Date Time Pulse Ox 100 07/04 1517 B/P 123/85 07/04 151 B/P Mean 97 07/04 151 Temp 36.8 07/04 151 Pulse 114 07/04 1517 Resp 18 07/04 151 O2 Delivery Room air 07/04 1214 All vital signs available at the time of this en try have been reviewed. Clinical Impression Clinical Impression Primary Impression: UTI (urinary tract infection ) Secondary Impressions: Cough, Methamphetamine us e Disposition Decision Discharge )( Discharged to Home Yes )( Time 1532 )( Date 07/04/21 Discharge/Care Plan Counseled Regarding Diagnosi s, Lab results, Imaging studies, Prescriptions, Need for follow-up, When to return to ED (Auto) Prescriptions Current Visit Scripts CEPHALEXIN (KEFLEX) 500 MG PO Q8HR 7 Days #21 CAPS FLUTICASONE PROPIONATE (FLONASE 50 MCG/ACT NASAL ) 1 SPRAY NASAL BID 7 Days #16 GM One spray in each nostril. BENZONATATE (TESSALON) 100 MG PO Q8H PRN PRN COU GH BENZONATATE (TESSALON) 100 MG PO Q8H PRN PRN CO UGH #12 CAPS Patient Instructions Urinary Tract Infections in Women Additional Instructions Fill prescription for medications and ta ke as directed. Follow-up with primary care provider and pulmonology in the next 2 to 3 days for recheck. Return to the ED with any concerns including but not limit ed to shortness of breath, worsening abdominal pain, vomiting, dizziness. Referrals Abundio Sanchez MD: 2-3 Days Departure Forms FREE OR LOW COST CLINICS PCP LIST at 1436 RPT #:[id number] END OF REPORT 2021-06-20 22:42:00-00:00 [facility] ([facility]) EMERGENCY PROVIDER REPORT REPORT#:[id number] REPORT STATUS: Signed DATE:06/20/21 TIME: 2241 PATIENT: JERI LOPEZ UNIT #: [id number] ROOM/BED: AGE: 40 SEX: F PCP PHYS: No Primary or Family Ph ysician SERVICE AUTHOR: Adonay Franz APRN FLOOR INSTALLATION MECHANIC * ALL edits or amendments must be made on the [employer]/computer document * Adonay Franz 06/20/212241: HPI-URI/Cough/Cold General Confirmed Patient Yes Initial Greet Date/Time 06/20/212232 PCP CAN'T REMEMBER NAME Presentation Chief Complaint Cough, non-productive Hx Obtained From Patient Onset Occurred Days ago (3) Symptom Duration Since onset Progression since Onset Gradually worsening Context Immunization Status Not Up to Date COVID UNVACCINATED Free Text HPI Notes Free Text HPI Notes 40-year-old non-Covid vaccinated female with no significant medical history presents to ED with cough and congestion , sore throat x2 days. Watery diarrhea stools x10 yesterday, none today. Mild chest meenakshi n with cough and exertional shortness of breath. Nausea without vomi ting. No fever, loss of taste or smell , abdominal pain. Patient taking Delsym with min imal relief. 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 Review of Systems ROS Statements All systems rev neg except as marked. Focused Review of Systems Constitutional Reports: Fatigue, Malaise. Denies: Fever. Eyes Denies: Eye pain bilat, Redness bilat, Visual lo ss bilat. Ears/Nose/Throat Reports: Nasal congestion, Sore throat. Respiratory Reports: Cough, non-productive, Dyspnea on exert ion. GI Denies: Abdominal pain, Diarrhea, Nausea, Vomiti ng. Skin Denies: Diaphoresis, Rash. Allergy/Immun Denies: Hives, Itching. Neurologic Denies: Change LOC, Dizziness, Focal weakness, H eadache, Numbness, Slurred speech. Past Medical History - Adult Stated Complaint COUGH SOB X 3 DAYS Allergies Coded Allergies: No Known Allergies (01/11/20) Home Medications Active Scripts BUTALBITAL/APAP/CAFF 50/300/40 MG (FIORICET) 1 C AP PO Q4H PRN PRN Headache BUTALBITAL/APAP/CAFF 50/300/40 MG (FIORICET) 1 CAP PO Q4H PRN PRN Headache #30 CAPS Prov: 04/28/21 NAPROXEN (NAPROSYN) 500 MG PO BID PRN PRN PAIN NAPROXEN (NAPROSYN) 500 MG PO BID PRN PRN PAIN #20 TABS Prov: 04/28/21 Reported Medications LITHIUM CARBONATE 300 MG PO TID Review of Nursing Notes Triage notes reviewed Pt reports no significant: Past medical history Past Surgical History: Reports: Tonsillectomy. Alcohol Use Alcohol use (SOCIAL) Drug Use ECSTASY Other Social History Uses e-cigarettes/vapes Physical Exam Vital Signs Vital Signs First Documented: Result Date Time Pulse Ox 99 06/20 2231 B/P 137/96 06/20 2231 B/P Mean 109 06/20 2231 O2 Delivery Room air 06/20 2231 Temp 36.8 06/20 2231 Pulse 89 06/20 2231 Resp 20 06/20 2231 Last Documented: Result Date Time Pulse Ox 99 06/20 2231 B/P 137/96 06/20 2231 B/P Mean 109 06/20 2231 O2 Delivery Room air 06/20 2231 Temp 36.8 06/20 2231 Pulse 89 06/20 2231 Resp 20 06/20 2231 Review of Vital Signs Reviewed Focused PE General/Const General/Const Awake, Alert, Well appearing, Not toxic appearing Eyes Eyes PERRL Ears/Nose/Throat Ears/Nose/Throat Airway patent, Mucous membrane s moist, Tympanic membs NL, Ext aud canal NL, No sinus tenderness Pharynx/Tonsils/Uvula Pharyngeal erythema (MILD). Nose Rhinorrhea. MS Neck Neck Supple, No meningismus, Full range of motion, No adenopathy, No swelling , Non-tender Resp/Chest Respiratory/Chest Breath sounds NL, Breath soun ds = bilat, No respiratory distress, No rales, No rhonchi, No wheezing, No retractions, No stridor Cardiovascular Cardiovascular Heart rate NL, Regular rhythm, H eart sounds NL, Peripheral circulation NL Abdomen/GI Abdomen/GI Soft, Non-tender, No guarding, No re bound Skin Skin Color NL, No rash, Warm, Dry, Turgor NL Neurologic Neurologic Oriented X3, Speech NL, No motor def icits, No sensory deficits Interpretation Diagnostics Lab Results Interpretation Results Laboratory Tests: 06/20 Serology SARS-CoV-2 Ag (Rapid) (NEGATIVE) NEGATIVE Streptococcus sp PCR (NEGATIVE) NEGATIVE FOR G/ C Strep pneumoniae (PCR) (NEGATIVE) NEGATIVE FOR GRP A Microbiology: Date/Time Procedure - Status Source Growth 06/20 2240 Group A Streptococcus Screen ([facility]) - COMP THROAT Recent Impressions: RADIOLOGY - XR CHEST 1 V 06/20 2323 Report Impression - Status: SIGNED Entered: 06/20/20212329 IMPRESSION: No acute cardiopulmonary findings. Impression By: [email or web address] Valente M.D. Lab Imaging Statement Laboratory radiographic studies reviewed and con sidered in the medical decision-making. Point of Care Testing Micro Interpretation Strep rapid - neg Pulse Oximetry Pulse Ox % 99 On: Room air Interpretation Interpreted by me, Pulse oximetr y normal Re-Evaluation MDM Re-Evaluation/Progress URI/Flu Adult MDM Note The patient is now resting c omfortably, is alert and in no distress. The patient has a normal mental status and is neurologically intact. The patient appears well and is able to tolerate food or fluid by mouth, and there is no significant dehydration. There is no res piratory distress and no signs of systemic toxicity. The history, exam, diagnostic testing (if any) a nd current condition do not demonstrate an infectious process such as mening itis, severe pneumonia, retropharyngeal abscess, epiglottitis, sepsis or other serious bacterial infection requiring further testing, treatment, consultation, or admission at this time. The vital signs have been sta ble. The patient's condition is stable and appropriate for discharge. The patient will pursue further outpatient evaluation with the primary care physician or ot her designated or consulting physician as indicated in the discharge instruct ions. Tissue Perfusion Reassessment Patient tissue perfusion reassessment completed. Patient Discharge Departure Vital Signs/Condition Vital Signs First Documented: Result Date Time Pulse Ox 99 06/20 2231 B/P 137/96 06/20 2231 B/P Mean 109 06/20 2231 O2 Delivery Room air 06/20 2231 Temp 36.8 06/20 2231 Pulse 89 06/20 2231 Resp 20 06/20 2231 Last Documented: Result Date Time Pulse Ox 99 06/20 2231 B/P 137/96 06/20 2231 B/P Mean 109 06/20 2231 O2 Delivery Room air 06/20 2231 Temp 36.8 06/20 2231 Pulse 89 06/20 2231 Resp 20 06/20 2231 All vital signs available at the time of this en try have been reviewed. Condition Stable Clinical Impression Clinical Impression Primary Impression: URI (upper respiratory infec tion) Disposition Decision Discharge )( Discharged to Home Yes )( Time 2331 )( Date 06/20/21 Discharge/Care Plan Counseled Regarding Diagnosi s, Lab results, Imaging studies, Prescriptions, Need for follow-up, When to return to ED (Auto) Prescriptions Current Visit Scripts D-METHORPHAN HB/P-EPD HCL/BPM (BROMPHENI G-[id number]-RR SYR) 10 ML PO Q6H PRN PRN COUGH D-METHORPHAN HB/P-EPD HCL/BPM (BROMPHENIR-PSEUD OEPHED-DM SYR) 10 ML PO Q6H PRN PRN COUGH #200 ML BENZONATATE (TESSALON) 200 MG PO Q8H PRN PRN COU GH BENZONATATE (TESSALON) 200 MG PO Q8H PRN PRN CO UGH #20 CAPS ALBUTEROL (PROAIR HFA 90 MCG/ACT 8.5 GM) 2 PUFF INH RTQ4H PRN PRN DYSPNEA/ WHEEZING ALBUTEROL (PROAIR HFA 90 MCG/ACT 8.5 GM) 2 PUFF INH RTQ4H PRN PRN DYSPNEA/ WHEEZING #8.5 GM Patient Instructions ED URI, Viral, No Abx (Adul t) Referrals PRIMARY CARE Discharge Note I have spoken with the patie nt and/or caregivers. I have explained the patient's condition, diagnoses and sandi atment plan based on the information available to me at this time. I have answered the patient's and/ or caregiver's questions and addressed any concerns. The patient and/or careg nita have as good an understanding of the patient 's diagnosis, condition and treatment plan as can be expected at this point. The vital signs have bee n stable. The patient's condition is stable and appr opriate for discharge from the emergency department. The patient will pursue further outpatient evalu ation with the primary care physician or other designated or consulting phys ician as outlined in the discharge instructions. The patient and/or caregivers are agreeable to this plan of care and follow-up instructions have been exp lained in detail. The patient and/or caregivers have received these instructio ns in written format and have expressed an understanding of the discharge inst ructions. The patient and/or caregivers are aware that any significant change in condition or worsening of symptoms should prompt an immediate return to [facility] or the closest emergency department or a call to 911. Quality Measures BP F/U for HTN F/u with PCP/other doc, BP in nor mal range Smoking Cessation Screened, non user Tobacco Screening/Cessation Denies tobacco use LaithMary Jane 06/23/212115: Patient Discharge Departure Supervising Physician Note MidLv Saw Pt Alone I have reviewed the PA/FLOOR INSTALLATION MECHANIC's note and plan of car e. I was available for consultation as needed at al l times during the patient's visit in the emergency department. I agree with the clinical impression , plan and disposition. Electronically Signed by Adonay Franz n 06/20/21 at [phone] [facility] #:[id number] END OF REPORT 2021-04-28 15:46:00-00:00 [facility] ([facility]) EMERGENCY PROVIDER REPORT REPORT#:[id number] REPORT STATUS: Signed DATE:04/28/21 TIME: 154 PATIENT: JERI LOPEZ UNIT #: [id number] ROOM/BED: AGE: 40 SEX: F PCP PHYS: No Primary or Family Ph ysician SERVICE AUTHOR: Glo Norris MD * ALL edits or amendments must be made on the [employer] document * Glo Norris 04/28/21 1546: HPI-Headache General Confirmed Patient Yes Initial Greet Date/Time 04/28/21 1405 PCP none Presentation Chief Complaint Headache Sudden in Onset? Yes Severity: Onset Moderate Free Text HPI Notes Free Text HPI Notes 40-year-old female with PMH bipolar disorder on (lithium x 4 mths), HLD, HTN and vitamin D deficiency presents with headache. Louise misty reports acute onset of symptoms that began last night. She note s she had an extremely forceful sneeze and afterwards, she developed a headache. It has been present since then. It is to the L posterior neck and radiates to the L face/eye, and is further described as stabbing, constant, worsened with l diane down and improved with leaning forward. It is currently 02/02. Patient b ecame concerned when she developed vision changes (described as seeing sp ots). She also admits to associated nausea, chest tightness, cough, chron ic LE swelling and hand swelling. She denies unilateral limb weakness, v omiting, fever, CP, SOB, abd pain, melena, hematuria, hematochezia or calf pa in. Risk-Headache Risk Stratification )( Subarachnoid Hemorrhage Risk factors reviewed )( IC Mass Lesion Risk factors reviewed Review of Systems ROS Statements All systems rev neg except as marked. Past Medical History - Adult Stated Complaint HEADACHE, SEEING SPOTS Allergies Coded Allergies: No Known Allergies (01/11/20) Home Medications Discontinued Scripts CYCLOBENZAPRINE (FLEXERIL) 10 MG PO Q8H PRN PRN MUSCLE SPASMS/PAIN CYCLOBENZAPRINE (FLEXERIL) 10 MG PO Q8H PRN PRN MUSCLE SPASMS/PAIN #15 TABS Prov: 10/21/20 DC: 04/28/21 1522 DC prior to admit IBUPROFEN (MOTRIN) 600 MG PO Q6H PRN PRN pain IBUPROFEN (MOTRIN) 600 MG PO Q6H PRN PRN pain # 30 TABS Prov: 10/21/20 DC: 04/28/21 1522 DC prior to admit Reported Medications LITHIUM CARBONATE 300 MG PO TID Discontinued Reported Medications SERTRALINE (ZOLOFT) ZIPRASIDONE (GEODON) METOCLOPRAMIDE (REGLAN) 10 MG PO DAILY IBUPROFEN (MOTRIN) 800 MG PO Q6H PRN PRN PAIN Past Medical History: Reports: Depression/mood disorder (bipolar d/o), Hypertension, Dyslipidemia. Additional Medical History ruptured ovarian cyst, vitamin D def Past Surgical History: Reports: Tonsillectomy. Alcohol Use Denies EtOH use Drug Use Denies recreational drugs Smoking status: Smoking status for patients 13 years old or old er: Current every day smoker Date last smoked: 04/28/21 Packs per day: 1 Years smoked: 10 Pack years: 10 Physical Exam Vital Signs Vital Signs First Documented: Result Date Time Pulse Ox 98 04/28 1355 B/P 127/89 04/28 1355 B/P Mean 101 04/28 135 O2 Delivery Room air 04/28 1355 Temp 36.4 04/28 1355 Pulse 97 04/28 135 Resp 16 04/28 1355 Last Documented: Result Date Time Pulse Ox 99 04/28 190 B/P 107/72 04/28 190 B/P Mean 83 04/28 1908 O2 Delivery Room air 04/28 1908 Temp 36.6 04/28 1908 Pulse 66 04/28 190 Resp 17 04/28 1908 Review of Vital Signs Reviewed Focused PE General/Const General/Const Awake, Alert, No acute distress Text/Dict Notes Afebrile, sitting comfortabl y in chair in NAD, nontoxic, appears well clinically , weighs 105 kg, fianc at chair side MS Head Head Atraumatic, Normocephalic Ears/Nose/Throat Ears/Nose/Throat Airway patent MS Neck Neck Supple, No swelling Resp/Chest Respiratory/Chest Breath sounds NL, No respirat ory distress, No rales, No rhonchi, No wheezing Cardiovascular Cardiovascular Heart rate NL, Regular rhythm, H eart sounds NL Abdomen/GI Abdomen/GI Soft, Non-tender, No distention Skin Skin Warm, Dry Neurologic Neurologic Oriented X3, Speech NL, Gait NL Text/Dict Notes 5/5 motor and sensory function all extremities Psychiatric Psychiatric Affect NL, Mood NL Additional PE MS Back Back No midline vertebral tend, No CVA tenderne ss MS Lower Extrem Lower Ext/Pelvis/MS No swelling, Non-tender Interpretation Diagnostics Lab Results Interpretation Lab Imaging Statement Laboratory radiographic studies reviewed and con sidered in the medical decision-making. Point of Care Testing Pulse Oximetry Pulse Ox % 98 On: Room air Interpretation Interpreted by me, Pulse oximetr y normal Time 1355 Re-Evaluation MDM ED Course Medication(s) Ordered Medication(s) Ordered: Antihistamine Drugs Sig/Vidal Start time Last Medication Dose Route Stop Time Status Admin Diphenhydramine HCl 25 MG X1ED STA 04/28 1436 D C 04/28 IV 04/28 1437 1508 Diagnostic Agents Sig/Vidal Start time Last Medication Dose Route Stop Time Status Admin Iopamidol 100 ML .STK-MED ONE 04/28 1533 DC IV 04/28 1534 1533 Electrolytic, Caloric, And Vicky Sig/Vidal Start time Last Medication Dose Route Stop Time Status Admin Sodium Chloride 0 ASDIR PRN 04/28 1445 DCD IV 04/29 1336 Sodium Chloride 1,000 ML X1ED STA 04/28 1437 D C 04/28 IV 04/28 1536 1508 Gastrointestinal Drugs Sig/Vidal Start time Last Medication Dose Route Stop Time Status Admin Metoclopramide HCl 10 MG X1ED STA 04/28 1436 DC 04/28 IV 04/28 1437 1508 Patient Discharge Departure Vital Signs/Condition Vital Signs First Documented: Result Date Time Pulse Ox 98 04/28 1355 B/P 127/89 04/28 1355 B/P Mean 101 04/28 1355 O2 Delivery Room air 04/28 1355 Temp 36.4 04/28 1355 Pulse 97 04/28 1355 Resp 16 04/28 1355 Last Documented: Result Date Time Pulse Ox 99 04/28 1908 B/P 107/72 10/03 1908 B/P Mean 83 10/03 1908 O2 Delivery Room air 04/28 1908 Temp 36.6 04/28 1908 Pulse 66 04/28 1908 Resp 17 04/28 1908 All vital signs available at the time of this en try have been reviewed. Supervising Physician Note MidLv/Doc Saw Pt 1 I have seen and evaluated th is patient and agree with the nurse practitioner or physician medical library assistant's docume ntation and assessment. Documentation of one or more elements of my assessment are included in the ct dical record. Tarik Abdalla 04/28/211903: Interpretation Diagnostics Lab Results Interpretation Results Laboratory Tests 04/28/21 151: [Embedded Image Not Available] Laboratory Tests: 04/28 1515 Chemistry Sodium (134 - 147 mEq/L) 140 Potassium (3.4 - 5.0 mEq/L) 3.6 Chloride (100 - 108 mEq/L) 106 Carbon Dioxide (21 - 33 mEq/l) 24 Anion Gap (0 - 20) 13 BUN (7 - 18 mg/dL) 7 Creatinine (0.6 - 1.3 mg/dL) 0.9 Glomerular Filtr Rate (105 - 110) 70.1 L Glucose (70 - 110 mg/dL) 79 Calcium (8.0 - 10.5 mg/dL) 9.0 Magnesium (1.80 - 2.40 mg/dL) 1.78 L Total Bilirubin (0.0 - 1.0 mg/dL) 0.50 AST (15 - 37 IUnit/L) 18 ALT (30 - 65 IUnit/L) 10 L Total Alk Phosphatase (20 - 125 IUnit/L) 67 Troponin I High Sens (0 - 34 ng/L) < 3 Total Protein (6.4 - 8.2 g/dL) 7.3 Albumin (3.4 - 5.0 g/dL) 3.90 Hematology WBC (4.5 - 11.0 x10 3/uL) 8.7 RBC (3.54 - 5.02 x10 6/uL) 5.06 H Hgb (11.0 - 15.0 g/dL) 15.5 H Hct (33.0 - 45.0 %) 45.5 H MCV (81.0 - 99.0 fL) 89.9 MCH (27.0 - 33.0 pg) 30.6 MCHC (33.0 - 37.0 g/dL) 34.1 RDW (11.5 - 14.5 %) 12.3 Plt Count (150 - 400 x10 3/uL) 282 MPV (7.0 - 9.0 fL) 10.3 H Neut % (Auto) (56.0 - 77.0 %) 56.4 Lymph % (Auto) (14.0 - 32.0 %) 32.3 H [place] % (Auto) (4.8 - 9.0 %) 6.2 Eos % (Auto) (0.3 - 3.7 %) 3.7 Baso % (Auto) (0.0 - 2.0 %) 0.8 Neut # (Auto) (2.0 - 7.6 x10 3/uL) 4.88 Lymph # (Auto) (1.0 - 3.8 x10 3/uL) 2.79 [place] # (Auto) (0.1 - 0.8 x10 3/uL) 0.54 Eos # (Auto) (0.0 - 0.2 x10 3/uL) 0.32 H Baso # (Auto) (0.0 - 0.2 x10 3/uL) 0.07 Abs Immat Gran (auto) (0.00 - 0.03 x10 3/uL) 0. 05 H Add Manual Diff NO Immature Gran % (0.0 - 2.0 %) 0.6 Nucleated RBC % (0 - 0 %) 0.0 Nucleated RBCs # (Man) (0.0 - 0.1 x10 3/uL) 0.0 0 Toxicology [place] (1.0 - 1.20 mmol/L) 0.3 L Recent Impressions: CAT SCAN - CT ANGIO HEAD 04/28 1542 Report Impression - Status: SIGNED Entered: 04/28/20211619 IMPRESSION: CT Angiography Head With Contrast, Arteriography No proximal occlusion in the [place]. CT Angiography Neck With Contrast No hemodynamically significant stenosis in the n casie. Impression By: [email or web address] - Tony Adams M.D. CAT SCAN - CT HEAD/BRAIN W/O CONT 04/28 1542 Report Impression - Status: SIGNED Entered: 04/28/2021 1625 IMPRESSION: No acute intracranial abnormality. Impression By: [email or web address] Andrez Nelson M.D. RADIOLOGY - XR CHEST 2 V 04/28 1610 Report Impression - Status: SIGNED Entered: 04/28/2021 1632 IMPRESSION: No acute cardiopulmonary findings Impression By: [email or web address] Andrez Owens M.D. CAT SCAN - CT ANGIO NECK 04/28 1611 Report Impression - Status: SIGNED Entered: 04/28/2021 1620 IMPRESSION: CT Angiography Head With Contrast, Arteriography No proximal occlusion in the [place]. CT Angiography Neck With Contrast No hemodynamically significant stenosis in the n casie. Impression By: [email or web address] - Tony Adams M.D. Re-Evaluation MDM )( Re-Evaluation/Progress #1 Text/Dict Note Patient received as handoff from Dr. Myrna mata results studies. CT without acute findings. Patient appears slightly dehydra pacheco but otherwise labs are nonactionable. Will discharge to home with Rx fo r symptom relief and should follow-up with PCP for further management )( Re-Eval Status Improved Patient Discharge Departure Vital Signs/Condition Condition Improved Clinical Impression Clinical Impression Primary Impression: Headache Disposition Decision Discharge )( Discharged to Home Yes )( Time 1905 )( Date 04/28/21 Discharge/Care Plan Counseled Regarding Diagnosi s, Lab results, Imaging studies, Prescriptions, Need for follow-up, When to return to ED (Auto) Prescriptions Current Visit Scripts BUTALBITAL/APAP/CAFF 50/300/40 MG (FIORICET) 1 C AP PO Q4H PRN PRN Headache BUTALBITAL/APAP/CAFF 50/300/40 MG (FIORICET) 1 CAP PO Q4H PRN PRN Headache #30 CAPS NAPROXEN (NAPROSYN) 500 MG PO BID PRN PRN PAIN NAPROXEN (NAPROSYN) 500 MG PO BID PRN PRN PAIN #20 TABS Patient Instructions ED Headache Unspecified Referrals Your PCP: 2-3 Days Discharge Note I have spoken with the patie nt and/or caregivers. I have explained the patient's condition, diagnoses and sandi atment plan based on the information available to me at this time. I have answered the patient's and/ or caregiver's questions and addressed any concerns. The patient and/or careg nita have as good an understanding of the patient 's diagnosis, condition and treatment plan as can be expected at this point. The vital signs have bee n stable. The patient's condition is stable and appr opriate for discharge from the emergency department. The patient will pursue further outpatient evalu ation with the primary care physician or other designated or consulting phys ician as outlined in the discharge instructions. The patient and/or caregivers are agreeable to this plan of care and follow-up instructions have been exp lained in detail. The patient and/or caregivers have received these instructio ns in written format and have expressed an understanding of the discharge inst ructions. The patient and/or caregivers are aware that any significant change in condition or worsening of symptoms should prompt an immediate return to [facility] or the closest emergency department or a call to 1. Electronically Signed by Glo Norris MD on at 1924 Electronically Signed by Tarik Abdalla NP on 11/14 at 0040 RPT #:[id number] END OF REPORT 2020-10-21 18:17:00-00:00 [facility] ([facility]) EMERGENCY PROVIDER REPORT REPORT#:[id number] REPORT STATUS: Signed DATE:10/21/20 TIME: 1816 PATIENT: JERI LOPEZ UNIT #: [id number] ROOM/BED: AGE: 40 SEX: F PCP PHYS: No Primary or Family Ph ysician SERVICE AUTHOR: Shanika Salas NP * ALL edits or amendments must be made on the [employer]/computer document * HPI-Abd Pain F Under 40 General Confirmed Patient Yes Patient Type New patient Initial Greet Date/Time 10/21/20 5792 PCP no pcp Presentation Chief Complaint Abdominal pain, Flank pain R Hx Obtained From Patient Sudden in Onset? No Onset Occurred Chronic Caused by No trauma by history Location RUQ, Flank right Quality Cramping Radiation No: Does not radiate. Migration/Movement Back to abdomen Severity: Current Pain level 5 out of 10 Associated with Denies: Anorexia, Back pain, Chest pain, Chills, Constipation, Diarrhea, Dysuria , Fever, Nausea, Shortness o f breath, Urinary tract symptoms, Vaginal bleeding, Vaginal discharge, Vomiting. Associated Other Pt denies other symptoms Exacerbated by Nothing Relieved by Nothing Free Text HPI Notes Free Text HPI Notes 40/f with pmh of htn, adry, and ovarian cysts p resents to the ED with c/o 1 year history of back pain which radiates to RUQ. Patient states the pain has been worse the past 5 days and is associ ated with intermittent hives which she does not currently have. She denies fever/chills, URI symptoms, chest pain/sob, N/V/D, flank pain/dysuria or other assoc iated symptoms. Patient states has had positive Hep C exposure w/i the past year and is requesting testing. 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 Patient nontoxic appearing on exam. Risk-Abd Pain F Under 40 )( Ectopic Risk factors N/A Coronary Artery Disease Risk factors reviewed, N o risk factors Thoracic Aortic Dissection Risk factors reviewed , No risk factors Review of Systems ROS Statements All systems rev neg except as marked. Focused Review of Systems Constitutional Denies: Chills, Fever, Malaise, Weakness - gener alized. Respiratory Denies: Cough, non-productive, Pleuritic pain, S hortness of breath. Cardiovascular Denies: Chest pain, Dyspnea on exertion, Palpita tions, Syncope. GI Reports: Abdominal pain. Denies: Constipation, D iarrhea, Nausea, Vomiting. Female Reports: Flank pain. Denies: Dysuria, Hematuria, Pelvic pain, , Urinary frequency, Urinary urgency, Urination decreased, Urination increased, Vaginal bleeding - abnl, Vaginal discharge. Musculoskeletal Reports: Back pain. Past Medical History - Adult Stated Complaint right back pain one year worse last 5 days,rash Allergies Coded Allergies: No Known Allergies (01/11/20) Home Medications Reported Medications LITHIUM CARBONATE SERTRALINE (ZOLOFT) ZIPRASIDONE (GEODON) METOCLOPRAMIDE (REGLAN) 10 MG PO DAILY IBUPROFEN (MOTRIN) 800 MG PO Q6H PRN PRN PAIN Review of Nursing Notes Unavailable at this time Pt reports no significant: Past medical history, Past surgical history, Family history, Social history Additional Medical History ruptured ovarian cyst Past Surgical History: Reports: Tonsillectomy. Alcohol Use Denies EtOH use Drug Use Denies recreational drugs Smoking status: Smoking status for patients 13 years old or old er: Never Smoker Physical Exam Vital Signs Vital Signs First Documented: Result Date Time Pulse Ox 100 03/28 1753 B/P 130/75 10/21 1752 B/P Mean 93 10/21 1752 Temp 36.4 10/21 1752 Pulse 99 10/21 1752 Resp 16 10/21 1752 O2 Delivery Room air 10/21 2005 Last Documented: Result Date Time Pulse Ox 99 10/21 2005 B/P 125/79 10/21 2005 B/P Mean 94 10/21 2005 O2 Delivery Room air 10/21 2005 Temp 37.0 10/21 2005 Pulse 87 10/21 2005 Resp 18 10/21 2005 Review of Vital Signs Reviewed Focused PE General/Const General/Const Awake, Alert, Well appearing MS Head Head Normocephalic Ears/Nose/Throat Ears/Nose/Throat Airway patent, Mucous membrane s moist, Pharynx NL Resp/Chest Respiratory/Chest Breath sounds NL, Breath soun ds = bilat, No respiratory distress, No rales, No rhonchi, No wheezing Cardiovascular Cardiovascular Heart rate NL, Regular rhythm, H eart sounds NL, Peripheral circulation NL Abdomen/GI Abdomen/GI Soft, Non-tender, McBurney's non-ten yahaira, No guarding, No rebound, BS normoactive, No distention, No hernia, No pal pable mass MS Back Back Inspection NL, Non-tender, No CVA tenderne ss Skin Skin Color NL, Warm, Dry, Turgor NL Neurologic Neurologic Oriented X3, Speech NL, No motor def icits, No sensory deficits Interpretation Diagnostics Lab Results Interpretation Results Laboratory Tests 10/21/201804: [Embedded Image Not Available] Laboratory Tests: 10/21 1804 Chemistry Sodium (136 - 145 mmol/L) 140 Potassium (3.5 - 5.1 mmol/L) 3.8 Chloride (98 - 107 mmol/L) 107.0 Carbon Dioxide (21 - 32 mmol/L) 25.0 Anion Gap (10 - 20) 11.8 BUN (7 - 18 mg/dL) < 5 L Creatinine (0.55 - 1.02 mg/dL) 0.50 L Glomerular Filtr Rate (>=60 mL/min) > 60 BUN/Creatinine Ratio (10 - 20) 9.6 L Glucose (74 - 106 mg/dL) 91 Calcium (8.5 - 10.1 mg/dL) 8.9 Total Bilirubin (0.0 - 1.0 mg/dL) 0.40 Direct Bilirubin (0.0 - 0.20 mg/dL) 0.10 AST (15 - 37 IUnit/L) 27 ALT (12 - 78 IUnit/L) 24 Total Alk Phosphatase (45 - 117 IUnit/L) 74 Troponin I (0 - 0.045 ng/mL) < 0.006 Total Protein (6.4 - 8.2 gram/dL) 6.9 Albumin (3.4 - 5.0 g/dL) 3.7 Globulin (2.7 - 4.2 gram/dL) 3.2 Albumin/Globulin Ratio (0.75 - 1.50) 1.2 Lipase (12.00 - 57.00 U/L) 37 Serum , Qual (NEGATIVE) NEGATIVE Hematology WBC (4.5 - 12.5 K/mm3) 5.5 RBC (3.7 - 5.2 mill/mm3) 5.19 Hgb (11.5 - 15.5 gram/dL) 15.0 Hct (36.0 - 46.0 %) 45.8 MCV (80 - 98 fL) 88.2 MCH (27.0 - 33.0 picogram) 28.9 MCHC (33.0 - 36.0 gram/dL) 32.8 L RDW (11.6 - 16.2 %) 12.4 Plt Count (150 - 450 K/mm3) 193 MPV (6.7 - 11.0 fL) 10.3 Urines Urine Color (YELLOW) Light-Yellow Urine Appearance (CLEAR) CLEAR Urine pH (5.0 - 8.0) 7.0 Ur Specific [place] (1.001 - 1.035) 1.009 Urine Protein (NEGATIVE mg/dL) NEGATIVE Urine Glucose (UA) (NEGATIVE mg/dL) NEGATIVE Urine Ketones (NEGATIVE mg/dL) NEGATIVE Urine Blood (NEGATIVE mg/dL) Negative Urine Nitrite (NEGATIVE) NEGATIVE Urine Bilirubin (NEGATIVE mg/dL) NEGATIVE Urine Urobilinogen (NEGATIVE mg/dL) Normal Ur Leukocyte Esterase (NEGATIVE Norman/uL) NEGATI VE Urine RBC (0 - 5 #/HPF) NONE SEEN Urine WBC (0 - 5 per HPF) 0-5 Ur Epithelial Cells (FEW per HPF) FEW Urine Bacteria (NONE #/HPF) NONE SEEN Urine Mucus (FEW #/LPF) FEW Recent Impressions: CAT SCAN - CT ABD PELVIS W/CONT 10/21 1924 Report Impression - Status: SIGNED Entered: 10/21/20201947 IMPRESSION: Normal appendix without bowel obstruction or col itis or diverticulitis or enteritis. No free fluid or free air or absce ss. No hydroureteronephrosis. Unremarkable urinary b ladder. No pathologic adenopathy. Impression By: [email or web address] - Reji Cho M.D. Lab Imaging Statement Laboratory radiographic studies reviewed and con sidered in the medical decision-making. Point of Care Testing Urinalysis Interpretation Urinalysis NL Pulse Oximetry Pulse Ox % 100 On: Room air Interpretation Interpreted by me, Pulse oximetr y normal Time 1753 Test Negative - serum HCG Re-Evaluation MDM Free Text MDM Notes Free Text MDM Notes Informed patient of lab/imaging findings. Educat ed on supportive measures, return precautions for new/worsening sym ptoms, need for outpatient PCP follow- up. Patient provided instructions on how to log into the patient portal to see hepatitis C titer results when available . Patient verbalized understanding and agrees with plan of care. Patient is non toxic-appearing, asymptomatic, with no signs of distress upon discharge. )( Re-Evaluation/Progress #1 Time of Re-Eval 1951 )( Re-Eval Status Improved Re-Eval Abdomen Soft, Non-tender, No guarding, N o rebound, BS normoactive, McBurney's non-tender, No distention Eval Following Treatment Pt. feels better Pain Re-Evaluation Denies pain Exam Post Tx - General Alert, Appears non-toxic, Appears well, Vital signs stable, Capillary refill normal, Hydration sixto l Plan Post Re-Eval Plan discharge Abd Pain MDM Note F < 40 The patient is resting comfortably and feels bet ter, is alert and in no distress. The repeat examination is unremarkable and benign; in particular, there is no discomfort at McBurney's point. The history, exam, diagnostic testing, and current condition do not suggest ac wendy appendicitis, bowel obstruction, tubovarian abscess, ectopic pregnan cy, ovarian torsion, acute cholecystitis, bowel perforation, major gastroin testinal bleeding, severe diverticulitis, sepsis, or other significant pat hology to warrant further testing, continued ED treatment, admission, or s urgical evaluation at this point. The vital signs have been stable. The pat ient does not have uncontrollable pain, intractable vomiting, or ot her significant symptoms. The patient's condition is stable and appropriate fo r discharge. The patient will pursue further outpatient evaluation with the [facility] care physician or other designated or consulting physician as in dicated in the discharge instructions. ED Course Medication(s) Ordered Medication(s) Ordered: Central Nervous System Agents Sig/Vidal Start time Last Medication Dose Route Stop Time Status Admin Acetaminophen 1,000 MG X1ED STA 10/21 1753 DC 10/21 PO 10/21 175 1901 Diagnostic Agents Sig/Vidal Start time Last Medication Dose Route Stop Time Status Admin Iopamidol 0 .STK-MED ONE 10/21 193 DC 10/21 .ROUTE 195 Patient Discharge Departure Vital Signs/Condition Vital Signs First Documented: Result Date Time Pulse Ox 100 10/21 1752 B/P 130/75 10/21 1752 B/P Mean 93 10/21 1752 Temp 36.4 10/21 1752 Pulse 99 10/21 1752 Resp 16 10/21 1752 O2 Delivery Room air 10/21 2005 Last Documented: Result Date Time Pulse Ox 99 10/21 2005 B/P 125/79 10/21 2005 B/P Mean 94 10/21 2005 O2 Delivery Room air 10/21 2005 Temp 37.0 10/21 2005 Pulse 87 10/21 2005 Resp 18 10/21 2005 All vital signs available at the time of this en try have been reviewed. Condition Stable, Improved Clinical Impression Clinical Impression Primary Impression: Flank pain Secondary Impressions: Abdominal pain Disposition Decision Discharge )( Discharged to Home Yes )( Time 1957 )( Date 10/21/20 Discharge/Care Plan Counseled Regarding Diagnosi s, Lab results, Imaging studies, Prescriptions, Need for follow-up, When to return to ED (Auto) Prescriptions Current Visit Scripts CYCLOBENZAPRINE (FLEXERIL) 10 MG PO Q8H PRN PRN MUSCLE SPASMS/PAIN CYCLOBENZAPRINE (FLEXERIL) 10 MG PO Q8H PRN PRN MUSCLE SPASMS/PAIN #15 TABS IBUPROFEN (MOTRIN) 600 MG PO Q6H PRN PRN pain IBUPROFEN (MOTRIN) 600 MG PO Q6H PRN PRN pain # 30 TABS Prescriptions Reviewed Risks, Benefits, Alternat suad treatment Patient Instructions ED Abdo toyin Pain Unkn Cause Fem, ED Flank Pain, Uncertain Cause, Hepatitis Panel Referrals Naif Sandoval MD: 1-2 Days [facility] Andrez [place]: 1-2 Days Discharge Note I have spoken with the patie nt and/or caregivers. I have explained the patient's condition, diagnoses and sandi atment plan based on the information available to me at this time. I have answered the patient's and/ or caregiver's questions and addressed any concerns. The patient and/or careg nita have as good an understanding of the patient 's diagnosis, condition and treatment plan as can be expected at this point. The vital signs have bee n stable. The patient's condition is stable and appr opriate for discharge from the emergency department. The patient will pursue further outpatient evalu ation with the primary care physician or other designated or consulting phys ician as outlined in the discharge instructions. The patient and/or caregivers are agreeable to this plan of care and follow-up instructions have been exp lained in detail. The patient and/or caregivers have received these instructio ns in written format and have expressed an understanding of the discharge inst ructions. The patient and/or caregivers are aware that any significant change in condition or worsening of symptoms should prompt an immediate return to [facility] or the closest emergency department or a call to 911. Quality Measures BP F/U for HTN Referred for BP f/u < 4wk Current Medications Attest: Medication review Preg Test for Women w/Abd Pa in Female age 14-50, Complaint of abdominal pn, Any preg test ordered Smoking Cessation Screened, non user Electronically Signed by Shanika Salas NP on at 0105 RPT #:[id number] END OF REPORT 2020-10-21 18:17:00-00:00 [facility] ([facility]) EMERGENCY PROVIDER REPORT REPORT#:[id number] REPORT STATUS: Signed DATE:10/21/20 TIME: 1816 PATIENT: JERI LOPEZ UNIT #: [id number] ROOM/BED: AGE: 40 SEX: F PCP PHYS: No Primary or Family Ph ysician SERVICE AUTHOR: Shanika Salas FLOOR INSTALLATION MECHANIC * ALL edits or amendments must be made on the el [employer]/computer document * Shanika Salas 10/21/201816: HPI-Abd Pain F Under 40 General Confirmed Patient Yes Patient Type New patient Initial Greet Date/Time 10/21/20 6331 PCP no pcp Presentation Chief Complaint Abdominal pain, Flank pain R Hx Obtained From Patient Sudden in Onset? No Onset Occurred Chronic Caused by No trauma by history Location RUQ, Flank right Quality Cramping Radiation No: Does not radiate. Migration/Movement Back to abdomen Severity: Current Pain level 5 out of 10 Associated with Denies: Anorexia, Back pain, Chest pain, Chills, Constipation, Diarrhea, Dysuria , Fever, Nausea, Shortness o f breath, Urinary tract symptoms, Vaginal bleeding, Vaginal discharge, Vomiting. Associated Other Pt denies other symptoms Exacerbated by Nothing Relieved by Nothing Free Text HPI Notes Free Text HPI Notes 40/f with pmh of htn, adry, and ovarian cysts p resents to the ED with c/o 1 year history of back pain which radiates to RUQ. Patient states the pain has been worse the past 5 days and is associ ated with intermittent hives which she does not currently have. She denies fever/chills, URI symptoms, chest pain/sob, N/V/D, flank pain/dysuria or other assoc iated symptoms. Patient states has had positive Hep C exposure w/i the past year and is requesting testing. 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 Patient nontoxic appearing on exam. Risk-Abd Pain F Under 40 )( Ectopic Risk factors N/A Coronary Artery Disease Risk factors reviewed, N o risk factors Thoracic Aortic Dissection Risk factors reviewed , No risk factors Review of Systems ROS Statements All systems rev neg except as marked. Focused Review of Systems Constitutional Denies: Chills, Fever, Malaise, Weakness - gener alized. Respiratory Denies: Cough, non-productive, Pleuritic pain, S hortness of breath. Cardiovascular Denies: Chest pain, Dyspnea on exertion, Palpita tions, Syncope. GI Reports: Abdominal pain. Denies: Constipation, D iarrhea, Nausea, Vomiting. Female Reports: Flank pain. Denies: Dysuria, Hematuria, Pelvic pain, , Urinary frequency, Urinary urgency, Urination decreased, Urination increased, Vaginal bleeding - abnl, Vaginal discharge. Musculoskeletal Reports: Back pain. Past Medical History - Adult Stated Complaint right back pain one year worse last 5 days,rash Allergies Coded Allergies: No Known Allergies (01/11/20) Home Medications Reported Medications LITHIUM CARBONATE SERTRALINE (ZOLOFT) ZIPRASIDONE (GEODON) METOCLOPRAMIDE (REGLAN) 10 MG PO DAILY IBUPROFEN (MOTRIN) 800 MG PO Q6H PRN PRN PAIN Review of Nursing Notes Unavailable at this time Pt reports no significant: Past medical history, Past surgical history, Family history, Social history Additional Medical History ruptured ovarian cyst Past Surgical History: Reports: Tonsillectomy. Alcohol Use Denies EtOH use Drug Use Denies recreational drugs Smoking status: Smoking status for patients 13 years old or old er: Never Smoker Physical Exam Vital Signs Vital Signs First Documented: Result Date Time Pulse Ox 100 10/21 1752 B/P 130/75 10/21 1752 B/P Mean 93 10/21 1752 Temp 36.4 10/21 1752 Pulse 99 10/21 1752 Resp 16 10/21 1752 O2 Delivery Room air 10/21 2005 Last Documented: Result Date Time Pulse Ox 99 10/21 2005 B/P 125/79 10/21 2005 B/P Mean 94 10/21 2005 O2 Delivery Room air 10/21 2005 Temp 37.0 10/21 2005 Pulse 87 10/21 2005 Resp 18 10/21 2005 Review of Vital Signs Reviewed Focused PE General/Const General/Const Awake, Alert, Well appearing MS Head Head Normocephalic Ears/Nose/Throat Ears/Nose/Throat Airway patent, Mucous membrane s moist, Pharynx NL Resp/Chest Respiratory/Chest Breath sounds NL, Breath flo nds = bilat, No respiratory distress, No rales, No rhonchi, No wheezing Cardiovascular Cardiovascular Heart rate NL, Regular rhythm, H eart sounds NL, Peripheral circulation NL Abdomen/GI Abdomen/GI Soft, Non-tender, McBurney's non-ten yahaira, No guarding, No rebound, BS normoactive, No distention, No hernia, No pal pable mass MS Back Back Inspection NL, Non-tender, No CVA tenderne ss Skin Skin Color NL, Warm, Dry, Turgor NL Neurologic Neurologic Oriented X3, Speech NL, No motor def icits, No sensory deficits Interpretation Diagnostics Lab Results Interpretation Results Laboratory Tests 10/21/201804: [Embedded Image Not Available] Laboratory Tests: 03/28 1805 Chemistry Sodium (136 - 145 mmol/L) 140 Potassium (3.5 - 5.1 mmol/L) 3.8 Chloride (98 - 107 mmol/L) 107.0 Carbon Dioxide (21 - 32 mmol/L) 25.0 Anion Gap (10 - 20) 11.8 BUN (7 - 18 mg/dL) < 5 L Creatinine (0.55 - 1.02 mg/dL) 0.50 L Glomerular Filtr Rate (>=60 mL/min) > 60 BUN/Creatinine Ratio (10 - 20) 9.6 L Glucose (74 - 106 mg/dL) 91 Calcium (8.5 - 10.1 mg/dL) 8.9 Total Bilirubin (0.0 - 1.0 mg/dL) 0.40 Direct Bilirubin (0.0 - 0.20 mg/dL) 0.10 AST (15 - 37 IUnit/L) 27 ALT (12 - 78 IUnit/L) 24 Total Alk Phosphatase (45 - 117 IUnit/L) 74 Troponin I (0 - 0.045 ng/mL) < 0.006 Total Protein (6.4 - 8.2 gram/dL) 6.9 Albumin (3.4 - 5.0 g/dL) 3.7 Globulin (2.7 - 4.2 gram/dL) 3.2 Albumin/Globulin Ratio (0.75 - 1.50) 1.2 Lipase (12.00 - 57.00 U/L) 37 Serum , Qual (NEGATIVE) NEGATIVE Hematology WBC (4.5 - 12.5 K/mm3) 5.5 RBC (3.7 - 5.2 mill/mm3) 5.19 Hgb (11.5 - 15.5 gram/dL) 15.0 Hct (36.0 - 46.0 %) 45.8 MCV (80 - 98 fL) 88.2 MCH (27.0 - 33.0 picogram) 28.9 MCHC (33.0 - 36.0 gram/dL) 32.8 L RDW (11.6 - 16.2 %) 12.4 Plt Count (150 - 450 K/mm3) 193 MPV (6.7 - 11.0 fL) 10.3 Serology Hepatitis C Antibody (0.0 - 0.9) <0.1 Urines Urine Color (YELLOW) Light-Yellow Urine Appearance (CLEAR) CLEAR Urine pH (5.0 - 8.0) 7.0 Ur Specific [place] (1.001 - 1.035) 1.009 Urine Protein (NEGATIVE mg/dL) NEGATIVE Urine Glucose (UA) (NEGATIVE mg/dL) NEGATIVE Urine Ketones (NEGATIVE mg/dL) NEGATIVE Urine Blood (NEGATIVE mg/dL) Negative Urine Nitrite (NEGATIVE) NEGATIVE Urine Bilirubin (NEGATIVE mg/dL) NEGATIVE Urine Urobilinogen (NEGATIVE mg/dL) Normal Ur Leukocyte Esterase (NEGATIVE Norman/uL) NEGATIV E Urine RBC (0 - 5 #/HPF) NONE SEEN Urine WBC (0 - 5 per HPF) 0-5 Ur Epithelial Cells (FEW per HPF) FEW Urine Bacteria (NONE #/HPF) NONE SEEN Urine Mucus (FEW #/LPF) FEW Recent Impressions: CAT SCAN - CT ABD PELVIS W/CONT 10/21 1924 Report Impression - Status: SIGNED Entered: 10/21/20201947 IMPRESSION: Normal appendix without bowel obstruction or col itis or diverticulitis or enteritis. No free fluid or free air or absce ss. No hydroureteronephrosis. Unremarkable urinary b ladder. No pathologic adenopathy. Impression By: [email or web address] - Reji Cho M.D. Lab Imaging Statement Laboratory radiographic studies reviewed and con sidered in the medical decision-making. Point of Care Testing Urinalysis Interpretation Urinalysis NL Pulse Oximetry Pulse Ox % 100 On: Room air Interpretation Interpreted by me, Pulse oximetr y normal Time 1753 Test Negative - serum HCG Re-Evaluation MDM Free Text MDM Notes Free Text MDM Notes Informed patient of lab/imaging findings. Educat ed on supportive measures, return precautions for new/worsening sym ptoms, need for outpatient PCP follow- up. Patient provided instructions on how to log into the patient portal to see hepatitis C titer results when available . Patient verbalized understanding and agrees with plan of care. Patient is non toxic-appearing, asymptomatic, with no signs of distress upon discharge. )( Re-Evaluation/Progress #1 Time of Re-Eval 1951 )( Re-Eval Status Improved Re-Eval Abdomen Soft, Non-tender, No guarding, N o rebound, BS normoactive, McBurney's non-tender, No distention Eval Following Treatment Pt. feels better Pain Re-Evaluation Denies pain Exam Post Tx - General Alert, Appears non-toxic, Appears well, Vital signs stable, Capillary refill normal, Hydration sixto l Plan Post Re-Eval Plan discharge Abd Pain MDM Note F < 40 The patient is resting comfortably and feels bet ter, is alert and in no distress. The repeat examination is unremarkable and benign; in particular, there is no discomfort at McBurney's point. The history, exam, diagnostic testing, and current condition do not suggest ac wendy appendicitis, bowel obstruction, tubovarian abscess, ectopic pregnan cy, ovarian torsion, acute cholecystitis, bowel perforation, major gastroin testinal bleeding, severe diverticulitis, sepsis, or other significant pat hology to warrant further testing, continued ED treatment, admission, or s urgical evaluation at this point. The vital signs have been stable. The pat ient does not have uncontrollable pain, intractable vomiting, or ot her significant symptoms. The patient's condition is stable and appropriate fo r discharge. The patient will pursue further outpatient evaluation with the [facility] care physician or other designated or consulting physician as in dicated in the discharge instructions. ED Course Medication(s) Ordered Medication(s) Ordered: Central Nervous System Agents Sig/Vidal Start time Last Medication Dose Route Stop Time Status Admin Acetaminophen 1,000 MG X1ED STA 10/21 175 DC 0 10/21 PO 10/21 1755 1901 Diagnostic Agents Sig/Vidal Start time Last Medication Dose Route Stop Time Status Admin Iopamidol 0 .STK-MED ONE 10/21 1931 DC 10/21 .ROUTE 195 Patient Discharge Departure Vital Signs/Condition Vital Signs First Documented: Result Date Time Pulse Ox 100 10/21 1753 B/P 130/75 10/21 175 B/P Mean 93 10/21 1752 Temp 36.4 10/21 1752 Pulse 99 10/21 175 Resp 16 10/21 1752 O2 Delivery Room air 10/21 2005 Last Documented: Result Date Time Pulse Ox 99 10/21 2005 B/P 125/79 10/21 2005 B/P Mean 94 10/21 2005 O2 Delivery Room air 10/21 2005 Temp 37.0 10/21 2005 Pulse 87 10/21 2005 Resp 18 10/21 2005 All vital signs available at the time of this en try have been reviewed. Condition Stable, Improved Clinical Impression Clinical Impression Primary Impression: Flank pain Secondary Impressions: Abdominal pain Disposition Decision Discharge )( Discharged to Home Yes )( Time 1957 )( Date 10/21/20 Discharge/Care Plan Counseled Regarding Diagnosi s, Lab results, Imaging studies, Prescriptions, Need for follow-up, When to return to ED (Auto) Prescriptions Current Visit Scripts CYCLOBENZAPRINE (FLEXERIL) 10 MG PO Q8H PRN PRN MUSCLE SPASMS/PAIN CYCLOBENZAPRINE (FLEXERIL) 10 MG PO Q8H PRN PRN MUSCLE SPASMS/PAIN #15 TABS IBUPROFEN (MOTRIN) 600 MG PO Q6H PRN PRN pain IBUPROFEN (MOTRIN) 600 MG PO Q6H PRN PRN pain # 30 TABS Prescriptions Reviewed Risks, Benefits, Alternat suad treatment Patient Instructions ED Abdo toyin Pain Unkn Cause Fem, ED Flank Pain, Uncertain Cause, Hepatitis Panel Referrals Naif Sandoval MD: 1-2 Days [facility] Evette [place]: 1-2 Days Discharge Note I have spoken with the patie nt and/or caregivers. I have explained the patient's condition, diagnoses and sandi atment plan based on the information available to me at this time. I have answered the patient's and/ or caregiver's questions and addressed any concerns. The patient and/or careg nita have as good an understanding of the patient 's diagnosis, condition and treatment plan as can be expected at this point. The vital signs have bee n stable. The patient's condition is stable and appr opriate for discharge from the emergency department. The patient will pursue further outpatient evalu ation with the primary care physician or other designated or consulting phys ician as outlined in the discharge instructions. The patient and/or caregivers are agreeable to this plan of care and follow-up instructions have been exp lained in detail. The patient and/or caregivers have received these instructio ns in written format and have expressed an understanding of the discharge inst ructions. The patient and/or caregivers are aware that any significant change in condition or worsening of symptoms should prompt an immediate return to [facility] or the closest emergency department or a call to 911. 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 I was available for consultation as needed at al l times during the patient's visit in the emergency department. I agree with the clinical impression , plan and disposition. Electronically Signed by Shanika Salas NP on at 0105 Electronically Signed by Vic Kinsey MD on at 1030 RPT #:[id number] END OF REPORT 2020-01-11 21:13:00-00:00 [facility] ([facility]) EMERGENCY PROVIDER REPORT REPORT#:[id number] REPORT STATUS: Signed DATE:01/11/20 TIME: 2112 PATIENT: JERI LOPEZ UNIT #: [id number] ROOM/BED: AGE: 39 SEX: F PCP PHYS: No Primary or Family Ph ysician SERVICE AUTHOR: Jennifer Bloom NP * ALL edits or amendments must be made on the [employer] document * HPI- Female General Confirmed Patient Yes Patient Type New patient Initial Greet Date/Time 01/11/202049 PCP no pcp Presentation Chief Complaint Dysuria, Flank pain L Hx Obtained From Patient )( Sudden in Onset? No Onset Occurred Days ago (3) Symptom Duration Since onset Progression since Onset Unchanged Context of Onset Spontaneous Caused by No trauma by history Location Flank L Quality Painful Radiation Back. Severity: Onset Mild Severity: Current Mild, Pain level 6 out of 10 Associated with Reports: UTI symptoms (Dysuria). Denies: Abdomin al pain, Abrasion, Anorexia, Chills, Constipation, Fever, Hematemesis, Lacera tion, Nausea, Rash, Vomiting. Associated Other Pt denies other symptoms Exacerbated by Urination Relieved by Nothing Context Immunization Status General All up to date Recent Healthcare Recent doctor visit Similar Sx Previous No /Sexual Hx Last Menstrual Period 12/27/19 Free Text HPI Notes Free Text HPI Notes 39-year-old female who comes in with a complaint of left flank pain and burning with urination. Patient states her symptoms star pacheco three days ago. Patient denies injury, trauma, or sick contacts. Patient describes the pain as a cramping sensation and admits it radiates to her back. Patient admits that symptoms are worsened by urination and denies re lieving factors. Patient also admits to a c/of o sore throat. Patient states t hat sore throat pain has been ongoing for approximately a year. Patient states symptoms are exacerbated by swallowing and admits symptoms are improved with [id number] ibuprofen. Patient admits that she was recently see n at [facility] for the sore throat, prescribed Kefl ex, with no improvement in symptoms. Patient states that she does not have the financial resources t o follow up with ENT. Patient denies fever, chills, weakness, dizziness, cough , chest pain, shortness of breath, n/v/d, constipation, pelvic discharge, o r blood in urine. Patient ambulatory to exam in no active distress. Patient denies recent travel, exposure t o anybody with recent travel, or COVID 19. Risk- Female Risk Stratification Ectopic Risk factors reviewed Review of Systems Focused Review of Systems Constitutional Denies: Chills, Fever, Lethargy. Ears/Nose/Throat Reports: Sore throat. Denies: Earache bilat, Srinath al congestion. GI Denies: Abdominal pain, Diarrhea, Nausea, Vomiti ng. Female Reports: Dysuria, Flank pain (left flank). Denie s: Hematuria, Incontinence, Nocturia, Pelvic pain, , Urinary frequency, Urinary urgency, Urination decreased, Urination increased, Vaginal bleeding - abnl, Vaginal discharge. Musculoskeletal Denies: Back pain, Extremity pain. Endocrine Denies: Polyuria, Weight loss. Skin Denies: Diaphoresis, Rash. Neurologic Denies: Change LOC, Dizziness, Focal weakness, H eadache, Numbness, Slurred speech. Past Medical History - Adult Stated Complaint HEADACHE Allergies Coded Allergies: No Known Allergies (01/11/20) Home Medications Reported Medications LITHIUM CARBONATE SERTRALINE (ZOLOFT) ZIPRASIDONE (GEODON) METOCLOPRAMIDE (REGLAN) 10 MG PO DAILY IBUPROFEN (MOTRIN) 800 MG PO Q6H PRN PRN PAIN Review of Nursing Notes Rev avail, and agree, Tr iage notes reviewed Additional Medical History ruptured ovarian cyst Past Surgical History: Reports: Tonsillectomy. Alcohol Use Denies EtOH use Drug Use Denies recreational drugs Smoking status for patients 13 years old or olde r: Current every day smoker Pack years (pk/d)*(yrs): 10 Date last smoked: still smoking Ambulatory Status Independent Physical Exam Vital Signs Vital Signs First Documented: Result Date Time Pulse Ox 100 01/11 2048 B/P 134/87 01/11 2048 B/P Mean 102 01/11 2048 O2 Delivery Room air 01/11 2048 Temp 36.6 01/11 2048 Pulse 97 01/11 2048 Resp 01/10 Last Documented: Result Date Time Pulse Ox 100 01/12 232 B/P 111/77 01/12 232 B/P Mean 88 01/12 232 O2 Delivery Room air 01/12 232 Temp 36.5 01/12 232 Pulse 72 01/12 232 Resp 01/11 Review of Vital Signs Reviewed Focused PE General/Const General/Const Awake, Alert, Well appearing Resp/Chest Respiratory/Chest Breath sounds NL, Breath soun ds = bilat, No respiratory distress, No rales, No rhonchi, No wheezing Cardiovascular Cardiovascular Heart rate NL, Regular rhythm, H eart sounds NL, Peripheral circulation NL Abdomen/GI Abdomen/GI Soft, No guarding, No rebound Tenderness/Guarding/Rebound Tender flank L. MS Back Back Inspection NL, No CVA tenderness Flank/Spine/Paraspinal Flank tender L. Skin Skin Color NL, No rash, Warm, Dry, Turgor NL Genitourinary General Exam deferred Additional PE Ears/Nose/Throat Ears/Nose/Throat Airway patent, Mucous membrane s moist, Pharynx NL, No pooling of secretions, Tympanic membs NL MS Neck Neck Supple, No meningismus, Non-tender, No mid line vertebral tend Lymphatic Lymphatic No gross adenopathy Interpretation Diagnostics Lab Results Interpretation Results Laboratory Tests 01/12/20 0017: [Embedded Image Not Available] Laboratory Tests: 01/117 2223 Chemistry Sodium (136 - 145 mmol/L) 140 Potassium (3.5 - 5.1 mmol/L) 4.1 Chloride (98 - 107 mmol/L) 108.0 H Carbon Dioxide (21 - 32 mmol/L) 26.0 Anion Gap (10 - 20) 10.1 BUN (7 - 18 mg/dL) 9 Creatinine (0.55 - 1.02 mg/dL) 0.60 Glomerular Filtr Rate (>=60 mL/min) > 60 BUN/Creatinine Ratio (10 - 20) 14.8 Glucose (74 - 106 mg/dL) 81 Calcium (8.5 - 10.1 mg/dL) 9.2 Total Bilirubin (0.0 - 1.0 mg/dL) 0.30 Direct Bilirubin (0.0 - 0.20 mg/dL) 0.08 AST (15 - 37 IUnit/L) 12 L ALT (12 - 78 IUnit/L) 26 Total Alk Phosphatase (45 - 117 IUnit/L) 73 Total Protein (6.4 - 8.2 gram/dL) 7.5 Albumin (3.4 - 5.0 g/dL) 3.5 Globulin (2.7 - 4.2 gram/dL) 4.0 Albumin/Globulin Ratio (0.75 - 1.50) 0.9 Lipase (73.0 - 393.0 U/L) 140 Serum , Qual (NEGATIVE) NEGATIVE Hematology WBC (4.5 - 12.5 K/mm3) 9.2 RBC (3.7 - 5.2 mill/mm3) 4.94 Hgb (11.5 - 15.5 gram/dL) 14.5 Hct (36.0 - 46.0 %) 43.7 MCV (80 - 98 fL) 88.5 MCH (27.0 - 33.0 picogram) 29.4 MCHC (33.0 - 36.0 gram/dL) 33.2 RDW (11.6 - 16.2 %) 13.1 Plt Count (150 - 450 K/mm3) 250 MPV (6.7 - 11.0 fL) 10.4 Urines Urine Color (YELLOW) Light-Yellow Urine Appearance (CLEAR) CLEAR Urine pH (5.0 - 8.0) 7.0 Ur Specific [place] (1.001 - 1.035) 1.015 Urine Protein (NEGATIVE mg/dL) NEGATIVE Urine Glucose (UA) (NEGATIVE mg/dL) NEGATIVE Urine Ketones (NEGATIVE mg/dL) NEGATIVE Urine Blood (NEGATIVE mg/dL) Negative Urine Nitrite (NEGATIVE) NEGATIVE Urine Bilirubin (NEGATIVE mg/dL) NEGATIVE Urine Urobilinogen (NEGATIVE mg/dL) Normal Ur Leukocyte Esterase (NEGATIVE Norman/uL) NEGATIV E Urine RBC (0 - 5 #/HPF) 0-2 Urine WBC (0 - 5 per HPF) 0-5 Ur Epithelial Cells (FEW per HPF) FEW Urine Bacteria (NONE #/HPF) NONE SEEN Urine Mucus (FEW #/LPF) FEW Recent Impressions: CAT SCAN - CT ABD PELVIS W/O CONT 01/11 0044 Report Impression - Status: SIGNED Entered: 01/12/2020 0149 IMPRESSION: No acute findings in the abdomen or pelvis. Impression By: Cuong - Michell Muller MD Lab Imaging Statement Laboratory radiographic studies reviewed and con sidered in the medical decision-making. Point of Care Testing Urinalysis Interpretation Urinalysis NL Pulse Oximetry Pulse Ox % 100 On: Room air Interpretation Interpreted by me Time 2047 Test Negative - serum HCG Radiography CT Abdomen/Pelvis Study type No contrast Interpretation/Wet Read by Interpret - Radiolog ist Reviewed by myself NL Abd/Pelvis CT Findings No acute disease Re-Evaluation MDM Free Text MDM Notes Free Text MDM Notes No leukocytosis, CT abdomen and pelvis negative for actue disease, and vital signs within normal limits. Patient was educated on diagnosis, lab a nalysis, diet modfications, supportive treatment at home, s/s of when to return to ER, and pcp follow up. Patient prescribed. Patient verbalized understanding. Patient was provided with [facility] where he can follow up within the next 24 to 48 hours for further evaluation.Patie nt verbalized understanding. Additional Text I reevaluated patient prior to discharge, patien t no active distress. Re-Evaluation/Progress Re-Evaluation/Progress 1 Text/Dict Note Pending IV medications and labs Time of Re-Eval 0002 Re-Eval Status Unchanged Eval Following Treatment Condition unchanged Pain Re-Evaluation Pain unchanged Exam Post Tx - General Active, Alert, Appears w ell Exam Post Tx - Sys Review Mental status baselin e Plan Post Re-Eval Plan observe Re-Evaluation/Progress 2 Time of Re-Eval 0210 Re-Eval Status Improved Eval Following Treatment Pt. feels better, Cond ition improved Pain Re-Evaluation Denies pain Exam Post Tx - General Active, Alert, Appears w ell Exam Post Tx - Sys Review Mental status baselin e Plan Post Re-Eval Plan discharge ED Course Medication(s) Ordered Medication(s) Ordered: Central Nervous System Agents Sig/Vidal Start time Last Medication Dose Route Stop Time Status Admin Ketorolac 30 MG X1ED STA 01/11 0151 DC 01/11 Tromethamine IV 01/11 0152 0157 Morphine Sulfate 4 MG X1ED STA 01/11 2112 DC IV 01/10 2113 Electrolytic, Caloric, And Vicky Sig/Vidal Start time Last Medication Dose Route Stop Time Status Admin Sodium Chloride 1,000 ML X1ED STA 01/102 DC 01/11 IV 01/10 2211 0023 Gastrointestinal Drugs Sig/Vidal Start time Last Medication Dose Route Stop Time Status Admin Ondansetron HCl 4 MG X1ED PRN PRN 01/10 2115 DC D IV Differential Diagnosis Differential Diagnosis Nephrolithiasis, Urinary tract infection Patient Discharge Departure Vital Signs/Condition Vital Signs First Documented: Result Date Time Pulse Ox 100 01/11 2048 B/P 134/87 01/11 2048 B/P Mean 102 01/11 2048 O2 Delivery Room air 01/11 2048 Temp 36.6 01/11 2048 Pulse 97 01/11 2048 Resp 16 01/11 2048 Last Documented: Result Date Time Pulse Ox 100 01/11 0232 B/P 111/77 01/11 0232 B/P Mean 88 01/11 0232 O2 Delivery Room air 01/11 023 Temp 36.5 01/11 0232 Pulse 72 01/11 0232 Resp 16 01/11 0232 All vital signs available at the time of this en try have been reviewed. Condition Stable Clinical Impression Clinical Impression Primary Impression: Left flank pain Disposition Decision Discharge )( Discharged to Home Yes )( Time 0220 )( Date 01/12/20 COVID-19 Discharge Plan CDC Criteria Met for Testing No Discharge/Care Plan Counseled Regarding Diagnosi s, Lab results, Imaging studies, Prescriptions, Need for follow-up, Smoking cessation, When to return to ED Prescriptions Ketorolac Prescriptions Reviewed Risks, Benefits, Alternat suad treatment Referrals No Primary or Family Physician (PCP/Family) Discharge Note I have spoken with the patie nt and/or caregivers. I have explained the patient's condition, diagnoses and sandi atment plan based on the information available to me at this time. I have answered the patient's and/ or caregiver's questions and addressed any concerns. The patient and/or careg nita have as good an understanding of the patient 's diagnosis, condition and treatment plan as can be expected at this point. The vital signs have bee n stable. The patient's condition is stable and appr opriate for discharge from the emergency department. The patient will pursue further outpatient evalu ation with the primary care physician or other designated or consulting phys ician as outlined in the discharge instructions. The patient and/or caregivers are agreeable to this plan of care and follow-up instructions have been exp lained in detail. The patient and/or caregivers have received these instructio ns in written format and have expressed an understanding of the discharge inst ructions. The patient and/or caregivers are aware that any significant change in condition or worsening of symptoms should prompt an immediate return to [facility] or the closest emergency department or a call to 911. Quality Measures BP F/U for HTN Referred for BP f/u < 4wk, F/u wi PCP/other doc Preg Test for Women w/Abd Pa in Female age 14-50, Complaint of abdominal pn, Any preg test ordered Smoking Cessation Screened, tobacco user, Tobacc o cess intervention Tobacco Screening/Cessation 18 years or older, T obacco user, Counseled 3-10 minutes Smoking Cessation Counseling The patient was questioned r egarding their smoking habits, and I have determined , as the patient's treating physician, that ther e is a medical necessity in regards to the patient's med ical condition to provide smoking cessation program education. The patient was a dvised to stop smoking and counseled for a period of greater than 3 minutes. The patient was instructed to follow up with a primary care physician for smoking cessation and given i nformation regarding local smoking cessation programs i n the area. The patient received detailed discharge instructions as to how to stop smoking. The patient expressed an understanding of the need to follow up and the plan for smokin g cessation. Electronically Signed by Jennifer Bloom NP on 01/11 at [employer] RPT #:[id number] END OF REPORT 2020-01-11 21:13:00-00:00 [facility] ([facility]) EMERGENCY PROVIDER REPORT REPORT#:[id number] REPORT STATUS: Signed DATE:01/11/20 TIME: 2112 PATIENT: JERI LOPEZ UNIT #: [id number] ROOM/BED: AGE: 39 SEX: F PCP PHYS: No Primary or Family Ph ysician SERVICE AUTHOR: Jennifer Bloom FLOOR INSTALLATION MECHANIC * ALL edits or amendments must be made on the [employer] document * Jennifer Bloom 01/11/203: HPI- Female General Confirmed Patient Yes Patient Type New patient PCP no pcp Presentation Chief Complaint Dysuria, Flank pain L Hx Obtained From Patient )( Sudden in Onset? No Onset Occurred Days ago (3) Symptom Duration Since onset Progression since Onset Unchanged Context of Onset Spontaneous Caused by No trauma by history Location Flank L Quality Painful Radiation Back. Severity: Onset Mild Severity: Current Mild, Pain level 6 out of 10 Associated with Reports: UTI symptoms (Dysuria). Denies: Abdomin al pain, Abrasion, Anorexia, Chills, Constipation, Fever, Hematemesis, Lacera tion, Nausea, Rash, Vomiting. Associated Other Pt denies other symptoms Exacerbated by Urination Relieved by Nothing Context Immunization Status General All up to date Recent Healthcare Recent doctor visit Similar Sx Previous No /Sexual Hx Last Menstrual Period 12/27/19 Free Text HPI Notes Free Text HPI Notes 39-year-old female who comes in with a complaint of left flank pain and burning with urination. Patient states her symptoms star pacheco three days ago. Patient denies injury, trauma, or sick contacts. Patient describes the pain as a cramping sensation and admits it radiates to her back. Patient admits that symptoms are worsened by urination and denies re lieving factors. Patient also admits to a c/of o sore throat. Patient states t hat sore throat pain has been ongoing for approximately a year. Patient states symptoms are exacerbated by swallowing and admits symptoms are improved with [id number] ibuprofen. Patient admits that she was recently see n at [facility] for the sore throat, prescribed Kefl ex, with no improvement in symptoms. Patient states that she does not have the financial resources t o follow up with ENT. Patient denies fever, chills, weakness, dizziness, cough , chest pain, shortness of breath, n/v/d, constipation, pelvic discharge, o r blood in urine. Patient ambulatory to exam in no active distress. Patient denies recent travel, exposure t o anybody with recent travel, or COVID 19. Risk- Female Risk Stratification Ectopic Risk factors reviewed Review of Systems Focused Review of Systems Constitutional Denies: Chills, Fever, Lethargy. Ears/Nose/Throat Reports: Sore throat. Denies: Earache bilat, Srinath al congestion. GI Denies: Abdominal pain, Diarrhea, Nausea, Vomiti ng. Female Reports: Dysuria, Flank pain (left flank). Denie s: Hematuria, Incontinence, Nocturia, Pelvic pain, , Urinary frequency, Urinary urgency, Urination decreased, Urination increased, Vaginal bleeding - abnl, Vaginal discharge. Musculoskeletal Denies: Back pain, Extremity pain. Endocrine Denies: Polyuria, Weight loss. Skin Denies: Diaphoresis, Rash. Neurologic Denies: Change LOC, Dizziness, Focal weakness, H eadache, Numbness, Slurred speech. Past Medical History - Adult Stated Complaint HEADACHE Allergies Coded Allergies: No Known Allergies (01/11/20) Home Medications Reported Medications LITHIUM CARBONATE SERTRALINE (ZOLOFT) ZIPRASIDONE (GEODON) METOCLOPRAMIDE (REGLAN) 10 MG PO DAILY IBUPROFEN (MOTRIN) 800 MG PO Q6H PRN PRN PAIN Review of Nursing Notes Rev avail, and agree, Tr iage notes reviewed Additional Medical History ruptured ovarian cyst Past Surgical History: Reports: Tonsillectomy. Alcohol Use Denies EtOH use Drug Use Denies recreational drugs Smoking status for patients 13 years old or olde r: Current every day smoker Pack years (pk/d)*(yrs): 10 Date last smoked: still smoking Ambulatory Status Independent Physical Exam Vital Signs Vital Signs First Documented: Result Date Time Pulse Ox 100 01/11 2048 B/P 134/87 01/11 2048 B/P Mean 102 01/11 2048 O2 Delivery Room air 01/11 2048 Temp 36.6 01/11 2048 Pulse 97 01/11 2048 Resp 01/10 Last Documented: Result Date Time Pulse Ox 100 01/12 232 B/P 111/77 01/12 232 B/P Mean 88 01/12 232 O2 Delivery Room air 01/12 232 Temp 36.5 01/12 232 Pulse 72 01/12 232 Resp 01/11 Review of Vital Signs Reviewed Focused PE General/Const General/Const Awake, Alert, Well appearing Resp/Chest Respiratory/Chest Breath sounds NL, Breath soun ds = bilat, No respiratory distress, No rales, No rhonchi, No wheezing Cardiovascular Cardiovascular Heart rate NL, Regular rhythm, H eart sounds NL, Peripheral circulation NL Abdomen/GI Abdomen/GI Soft, No guarding, No rebound Tenderness/Guarding/Rebound Tender flank L. MS Back Back Inspection NL, No CVA tenderness Flank/Spine/Paraspinal Flank tender L. Skin Skin Color NL, No rash, Warm, Dry, Turgor NL Genitourinary General Exam deferred Additional PE Ears/Nose/Throat Ears/Nose/Throat Airway patent, Mucous membrane s moist, Pharynx NL, No pooling of secretions, Tympanic membs NL MS Neck Neck Supple, No meningismus, Non-tender, No mid line vertebral tend Lymphatic Lymphatic No gross adenopathy Interpretation Diagnostics Lab Results Interpretation Results Laboratory Tests 01/12/2016: [Embedded Image Not Available] Laboratory Tests: 01/11 2223 Chemistry Sodium (136 - 145 mmol/L) 140 Potassium (3.5 - 5.1 mmol/L) 4.1 Chloride (98 - 107 mmol/L) 108.0 H Carbon Dioxide (21 - 32 mmol/L) 26.0 Anion Gap (10 - 20) 10.1 BUN (7 - 18 mg/dL) 9 Creatinine (0.55 - 1.02 mg/dL) 0.60 Glomerular Filtr Rate (>=60 mL/min) > 60 BUN/Creatinine Ratio (10 - 20) 14.8 Glucose (74 - 106 mg/dL) 81 Calcium (8.5 - 10.1 mg/dL) 9.2 Total Bilirubin (0.0 - 1.0 mg/dL) 0.30 Direct Bilirubin (0.0 - 0.20 mg/dL) 0.08 AST (15 - 37 IUnit/L) 12 L ALT (12 - 78 IUnit/L) 26 Total Alk Phosphatase (45 - 117 IUnit/L) 73 Total Protein (6.4 - 8.2 gram/dL) 7.5 Albumin (3.4 - 5.0 g/dL) 3.5 Globulin (2.7 - 4.2 gram/dL) 4.0 Albumin/Globulin Ratio (0.75 - 1.50) 0.9 Lipase (73.0 - 393.0 U/L) 140 Serum , Qual (NEGATIVE) NEGATIVE Hematology WBC (4.5 - 12.5 K/mm3) 9.2 RBC (3.7 - 5.2 mill/mm3) 4.94 Hgb (11.5 - 15.5 gram/dL) 14.5 Hct (36.0 - 46.0 %) 43.7 MCV (80 - 98 fL) 88.5 MCH (27.0 - 33.0 picogram) 29.4 MCHC (33.0 - 36.0 gram/dL) 33.2 RDW (11.6 - 16.2 %) 13.1 Plt Count (150 - 450 K/mm3) 250 MPV (6.7 - 11.0 fL) 10.4 Urines Urine Color (YELLOW) Light-Yellow Urine Appearance (CLEAR) CLEAR Urine pH (5.0 - 8.0) 7.0 Ur Specific [place] (1.001 - 1.035) 1.015 Urine Protein (NEGATIVE mg/dL) NEGATIVE Urine Glucose (UA) (NEGATIVE mg/dL) NEGATIVE Urine Ketones (NEGATIVE mg/dL) NEGATIVE Urine Blood (NEGATIVE mg/dL) Negative Urine Nitrite (NEGATIVE) NEGATIVE Urine Bilirubin (NEGATIVE mg/dL) NEGATIVE Urine Urobilinogen (NEGATIVE mg/dL) Normal Ur Leukocyte Esterase (NEGATIVE Norman/uL) NEGATIV E Urine RBC (0 - 5 #/HPF) 0-2 Urine WBC (0 - 5 per HPF) 0-5 Ur Epithelial Cells (FEW per HPF) FEW Urine Bacteria (NONE #/HPF) NONE SEEN Urine Mucus (FEW #/LPF) FEW Recent Impressions: CAT SCAN - CT ABD PELVIS W/O CONT 01/11 0044 Report Impression - Status: SIGNED Entered: 01/12/2020 0149 IMPRESSION: No acute findings in the abdomen or pelvis. Impression By: Cuong - Michell Muller MD Lab Imaging Statement Laboratory radiographic studies reviewed and con sidered in the medical decision-making. Point of Care Testing Urinalysis Interpretation Urinalysis NL Pulse Oximetry Pulse Ox % 100 On: Room air Interpretation Interpreted by ct Time 2047 Test Negative - serum HCG Radiography CT Abdomen/Pelvis Study type No contrast Interpretation/Wet Read by Interpret - Radiolog ist Reviewed by myself NL Abd/Pelvis CT Findings No acute disease Re-Evaluation MDM Free Text MDM Notes Free Text MDM Notes No leukocytosis, CT abdomen and pelvis negative for actue disease, and vital signs within normal limits. Patient was educated on diagnosis, lab a nalysis, diet modfications, supportive treatment at home, s/s of when to return to ER, and pcp follow up. Patient prescribed. Patient verbalized understanding. Patient was provided with [facility] where he can follow up within the next 24 to 48 hours for further evaluation.Katie nt verbalized understanding. Additional Text I reevaluated patient prior to discharge, patironda t no active distress. Re-Evaluation/Progress Re-Evaluation/Progress 1 Text/Dict Note Pending IV medications and labs Time of Re-Eval 0002 Re-Eval Status Unchanged Eval Following Treatment Condition unchanged Pain Re-Evaluation Pain unchanged Exam Post Tx - General Active, Alert, Appears w ell Exam Post Tx - Sys Review Mental status baselin e Plan Post Re-Eval Plan observe Re-Evaluation/Progress 2 Time of Re-Eval 0210 Re-Eval Status Improved Eval Following Treatment Pt. feels better, Cond ition improved Pain Re-Evaluation Denies pain Exam Post Tx - General Active, Alert, Appears w ell Exam Post Tx - Sys Review Mental status baselin e Plan Post Re-Eval Plan discharge ED Course Medication(s) Ordered Medication(s) Ordered: Central Nervous System Agents Sig/Vidal Start time Last Medication Dose Route Stop Time Status Admin Ketorolac 30 MG X1ED STA 01/11 0151 DC 01/11 Tromethamine IV 01/11 0152 0157 Morphine Sulfate 4 MG X1ED STA 01/11 2112 DC IV 01/10 2113 Electrolytic, Caloric, And Vicky Sig/Vidal Start time Last Medication Dose Route Stop Time Status Admin Sodium Chloride 1,000 ML X1ED STA 01/11 2112 DC 01/11 IV 01/10 2211 0023 Gastrointestinal Drugs Sig/Vidal Start time Last Medication Dose Route Stop Time Status Admin Ondansetron HCl 4 MG X1ED PRN PRN 01/10 2115 DC D IV Differential Diagnosis Differential Diagnosis Nephrolithiasis, Urinary tract infection Patient Discharge Departure Vital Signs/Condition Vital Signs First Documented: Result Date Time Pulse Ox 100 01/11 2048 B/P 134/87 01/11 2048 B/P Mean 102 01/11 2048 O2 Delivery Room air 01/11 2048 Temp 36.6 01/11 2048 Pulse 97 01/11 2048 Resp 16 06/17 2048 Last Documented: Result Date Time Pulse Ox 100 01/12 232 B/P 111/77 01/12 232 B/P Mean 88 01/12 232 O2 Delivery Room air 01/12 232 Temp 36.5 01/12 232 Pulse 72 01/12 232 Resp 16 01/12 232 All vital signs available at the time of this en try have been reviewed. Condition Stable Clinical Impression Clinical Impression Primary Impression: Left flank pain Disposition Decision Discharge )( Discharged to Home Yes )( Time 0220 )( Date 01/12/20 COVID-19 Discharge Plan [facility] Criteria Met for Testing No Discharge/Care Plan Counseled Regarding Diagnosi s, Lab results, Imaging studies, Prescriptions, Need for follow-up, Smoking cessation, When to return to ED Prescriptions Ketorolac Prescriptions Reviewed Risks, Benefits, Alternat suad treatment Referrals No Primary or Family Physician (PCP/Family) Discharge Note I have spoken with the patie nt and/or caregivers. I have explained the patient's condition, diagnoses and sandi atment plan based on the information available to me at this time. I have answered the patient's and/ or caregiver's questions and addressed any concerns. The patient and/or careg nita have as good an understanding of the patient 's diagnosis, condition and treatment plan as can be expected at this point. The vital signs have bee n stable. The patient's condition is stable and appr opriate for discharge from the emergency department. The patient will pursue further outpatient evalu ation with the primary care physician or other designated or consulting phys ician as outlined in the discharge instructions. The patient and/or caregivers are agreeable to this plan of care and follow-up instructions have been exp lained in detail. The patient and/or caregivers have received these instructio ns in written format and have expressed an understanding of the discharge inst ructions. The patient and/or caregivers are aware that any significant change in condition or worsening of symptoms should prompt an immediate return to [facility] or the closest emergency department or a call to 911. Quality Measures BP F/U for HTN Referred for BP f/u < 4wk, F/u wi PCP/other doc Preg Test for Women w/Abd Pa in Female age 14-50, Complaint of abdominal pn, Any preg test ordered Smoking Cessation Screened, tobacco user, Tobacc o cess intervention Tobacco Screening/Cessation 18 years or older, T obacco user, Counseled 3-10 minutes Smoking Cessation Counseling The patient was questioned r egarding their smoking habits, and I have determined , as the patient's treating physician, that ther e is a medical necessity in regards to the patient's med ical condition to provide smoking cessation program education. The patient was a dvised to stop smoking and counseled for a period of greater than 3 minutes. The patient was instructed to follow up with a primary care physician for smoking cessation and given i nformation regarding local smoking cessation programs i n the area. The patient received detailed discharge instructions as to how to stop smoking. The patient expressed an understanding of the need to follow up and the plan for smokin g cessation. Alfonso Herzog 01/13/20 2245: HPI- Female General Initial Greet Date/Time 01/11/202049 Patient Discharge Departure Supervising Physician Note MidLv Saw Pt Alone I have reviewed the PA/FLOOR INSTALLATION MECHANIC's note and plan of car e. I was available for consultation as needed at al l times during the patient's visit in the emergency department. I agree with the clinical impression , plan and disposition. Electronically Signed by Jennifer Bloom FLOOR INSTALLATION MECHANIC on 01/11 at 1037 Electronically Signed by Alfonso Herzog DO on 12/25 04/15 at 2245 RPT #:[id number] END OF REPORT 2018-11-03 00:38:00-00:00 [facility] ([facility]) EMERGENCY PROVIDER REPORT REPORT#:[id number] REPORT STATUS: Signed DATE:11/03/18 TIME: 37 PATIENT: JERI LOPEZ UNIT #: [id number] ROOM/BED: AGE: 38 SEX: F PCP PHYS: Malaika Meeks MD SERVICE AUTHOR: Courtney Cosme Ma FLOOR INSTALLATION MECHANIC * ALL edits or amendments must be made on the [employer]/computer document * HPI-Trauma Minor/Fall General Confirmed Patient Yes Patient Type New patient Initial Greet Date/Time 11/03/18 0028 Presentation Chief Complaint Fall Hx Obtained From Patient Onset Occurred Just prior to arrival Symptom Duration Since onset Progression since Onset Constant Quality Painful Free Text HPI Notes Free Text HPI Notes PATIENT TO ER FOR EVALUATION OF R ANKLE, LEFT FO OT, AND LOW BACK PAIN S/P SLIPPING AND FALLING ON SOME ICE IN WALK IN [place] JUST PRIOR TO ARRIVAL. NO LOC, NO BLOOD THINNER USE, AMBULATORY IN TRIAGE. Risk-Trauma Minor/Fall Risk Stratification Nexus C-Spine Criteria No: Post midline tenderness, Intoxicated, Altere d LOC/alertness, Focal neuro deficit pres, Distracting injury pres. Nichole Coma Score > Age 5 Nichole Coma Score > Age 5 Response Value Eye Opening Open spontaneously (4) 4 Verbal Response Oriented (5) 5 Motor Response Obeys commands (6) 6 Total 15 Review of Systems ROS Statements All systems rev neg except as marked. Focused Review of Systems Musculoskeletal Reports: Back pain, Extremity pain, Joint pain. Denies: Neck pain. Skin Denies: Abrasion, Laceration, Swelling. Neurologic Denies: Bladder dysfunction, Bowel dysfunction, Focal weakness, Numbness, Tingling. Past Medical History - Adult Stated Complaint FELL HURT ANKLE AND KNEE Allergies Coded Allergies: No Known Allergies (10/10/10) Home Medications Reported Medications LITHIUM CARBONATE SERTRALINE (ZOLOFT) ZIPRASIDONE (GEODON) METOCLOPRAMIDE (REGLAN) 10 MG PO DAILY IBUPROFEN (MOTRIN) 800 MG PO Q6H PRN PRN PAIN Review of Nursing Notes Unavailable at this time Additional Medical History ruptured ovarian cyst Past Surgical History: Reports: Tonsillectomy. Smoking status for patients 13 years old or olde r: Never Smoker Physical Exam Vital Signs Vital Signs First Documented: Result Date Time Pulse Ox 98 11/03 28 B/P 118/72 11/03 0029 B/P Mean 87 11/03 002 O2 Delivery Room air 11/03 28 Temp 36.8 11/03 002 Pulse 107 11/03 002 Resp 16 11/03 002 Last Documented: Result Date Time Pulse Ox 100 11/035 B/P 122/69 / 031 B/P Mean 86 11/03 314 Temp 36.6 11/03 314 Pulse 74 11/035 Resp 15 11/03 0315 O2 Delivery Room air 11/03 002 Review of Vital Signs Reviewed Focused PE General/Const General/Const Awake, Alert, No acute di stress, Well appearing, Well developed , Well hydrated, Well nourished, Cooperative, No t toxic appearing MS Head Head Atraumatic, Normocephalic MS Neck Neck Atraumatic, Supple, Non-tender, No midline vertebral tend Resp/Chest Respiratory/Chest Atraumatic, Breath sounds NL, Breath sounds = bilat, No respiratory distress Cardiovascular Cardiovascular Cap refill not delayed, Peripher al circulation NL Abdomen/GI Abdomen/GI Atraumatic, Soft, Non-tender MS Back Back No paraspinal tenderness, No muscle spasm, No CVA tenderness Flank/Spine/Paraspinal Lumbar spine tender. Negative: Thorac paraspina l tend, Thoracic spine tender. MS Upper Extrem Upper Extremity/MS Atraumatic, Inspection NL MS Ankle/Foot Right Ankle Tenderness present. Negative: Swelling present, Ecchymosis present, Erythema present, ROM reduced, Deformity present, Open fr acture present, Neuro deficit present. Left Foot Tenderness present. Negative: Swelling present, Tender base 5th mtarsal, Tender calcaneus, Ecchymosis present, Er ythema present, ROM reduced, Deformity present, Open fracture present, Pulse dorsalis p ed absent, Pulse dors ped decreased, Neuro deficit present. Skin Skin Atraumatic, Color NL, No rash, War m, Dry, Intact, Turgor NL, No swelling Neurologic Neurologic Oriented X3, Speech NL, No motor def icits, No sensory deficits, Gait NL Interpretation Diagnostics Lab Results Interpretation Results Recent Impressions: RADIOLOGY - XR FOOT 3 + V LT 11/03 012 Report Impression - Status: SIGNED Entered: 11/03/2018 0133 IMPRESSION: Unremarkable radiographic examination of the lef t foot. Impression By: [email or web address] - Cortes Galeana M.D. RADIOLOGY - XR ANKLE 3 + V RT 11/03 012 Report Impression - Status: SIGNED Entered: 11/03/2018 012 Impression: Unremarkable ankle. Impression By: Vicki Pyle M.D. RADIOLOGY - XR L-SPINE 2/3 VIEWS 11/03 012 Report Impression - Status: SIGNED Entered: 11/03/2018 012 Impression: Unremarkable lumbar spine. Impression By: Vicki Pyle M.D. Point of Care Testing Pulse Oximetry Pulse Ox % 98 On: Room air Interpretation Interpreted by me, Pulse oximetr y normal Re-Evaluation MDM Free Text MDM Notes Free Text MDM Notes PATIENT EDUCATED ON DIAGNOSIS, IMAGING RESULTS, PRESCRIPTIONS, S/S OF WHEN TO RETURN TO ER, AND NEED FOR O UTPATIENT F/U. INSTRUCTED TO RETURN TO ER W/ NEW OR WORSENING SYMPTOMS. STABLE FOR D/C. ED Course Medication(s) Ordered Medication(s) Ordered: Central Nervous System Agents Sig/Vidal Start time Last Medication Dose Route Stop Time Status Admin Ibuprofen 800 MG X1ED STA 11/03 0034 DC 11/03 PO 11/03 34 0059 Patient Discharge Departure Vital Signs/Condition Vital Signs First Documented: Result Date Time Pulse Ox 98 11/03 28 B/P 118/72 11/03 28 B/P Mean 87 11/03 28 O2 Delivery Room air 11/03 28 Temp 36.8 11/03 28 Pulse 107 11/03 28 Resp 16 11/03 28 Last Documented: Result Date Time Pulse Ox 100 11/03 0315 B/P 122/69 11/03 314 B/P Mean 86 11/03 314 Temp 36.6 11/03 314 Pulse 74 11/03 314 Resp 15 11/03 314 O2 Delivery Room air 11/03 28 All vital signs available at the time of this en try have been reviewed. Condition Stable Clinical Impression Clinical Impression Primary Impression: Ankle pain Secondary Impressions: Back pain, Fall, Foot meenakshi n Disposition Decision Discharge )( Discharged to Home Yes )( Time 0134 )( Date 11/03/18 Discharge/Care Plan Counseled Regarding Diagnosi s, Imaging studies, Prescriptions, Need for follow- up, When to return to ED Prescriptions MOTRIN Prescriptions Reviewed Risks, Benefits, Alternat suad treatment Discharge Note I have spoken with the patie nt and/or caregivers. I have explained the patient's condition, diagnoses and sandi atment plan based on the information available to me at this time. I have answered the patient's and/ or caregiver's questions and addressed any concerns. The patient and/or careg nita have as good an understanding of the patient 's diagnosis, condition and treatment plan as can be expected at this point. The vital signs have bee n stable. The patient's condition is stable and appr opriate for discharge from the emergency department. The patient will pursue further outpatient evalu ation with the primary care physician or other designated or consulting phys ician as outlined in the discharge instructions. The patient and/or caregivers are agreeable to this plan of care and follow-up instructions have been exp lained in detail. The patient and/or caregivers have received these instructio ns in written format and have expressed an understanding of the discharge inst ructions. The patient and/or caregivers are aware that any significant change in condition or worsening of symptoms should prompt an immediate return to [facility] or the closest emergency department or a call to 911. Quality Measures BP F/U for HTN BP in normal range Smoking Cessation Screened, non user at 0331 RPT #:[id number] END OF REPORT 2018-11-03 00:38:00-00:00 [facility] ([facility]) EMERGENCY PROVIDER REPORT REPORT#:[id number] REPORT STATUS: Signed DATE:11/03/18 TIME: 37 PATIENT: JERI LOPEZ UNIT #: [id number] ROOM/BED: AGE: 38 SEX: F PCP PHYS: Malaika Meeks MD SERVICE AUTHOR: Courtney Cosme Ma, NP * ALL edits or amendments must be made on the [employer]/computer document * Courtney Cosme 11/03/18 0038: HPI-Trauma Minor/Fall General Confirmed Patient Yes Patient Type New patient Presentation Chief Complaint Fall Hx Obtained From Patient Onset Occurred Just prior to arrival Symptom Duration Since onset Progression since Onset Constant Quality Painful Free Text HPI Notes Free Text HPI Notes PATIENT TO ER FOR EVALUATION OF R ANKLE, LEFT FO OT, AND LOW BACK PAIN S/P SLIPPING AND FALLING ON SOME ICE IN WALK IN [place] JUST PRIOR TO ARRIVAL. NO LOC, NO BLOOD THINNER USE, AMBULATORY IN TRIAGE. Risk-Trauma Minor/Fall Risk Stratification Nexus C-Spine Criteria No: Post midline tenderness, Intoxicated, Altere d LOC/alertness, Focal neuro deficit pres, Distracting injury pres. [place] Coma Score > Age 5 [place] Coma Score > Age 5 Response Value Eye Opening Open spontaneously (4) 4 Verbal Response Oriented (5) 5 Motor Response Obeys commands (6) 6 Total 15 Review of Systems ROS Statements All systems rev neg except as marked. Focused Review of Systems Musculoskeletal Reports: Back pain, Extremity pain, Joint pain. Denies: Neck pain. Skin Denies: Abrasion, Laceration, Swelling. Neurologic Denies: Bladder dysfunction, Bowel dysfunction, Focal weakness, Numbness, Tingling. Past Medical History - Adult Stated Complaint FELL HURT ANKLE AND KNEE Allergies Coded Allergies: No Known Allergies (10/10/10) Home Medications Reported Medications LITHIUM CARBONATE SERTRALINE (ZOLOFT) ZIPRASIDONE (GEODON) METOCLOPRAMIDE (REGLAN) 10 MG PO DAILY IBUPROFEN (MOTRIN) 800 MG PO Q6H PRN PRN PAIN Review of Nursing Notes Unavailable at this time Additional Medical History ruptured ovarian cyst Past Surgical History: Reports: Tonsillectomy. Smoking status for patients 13 years old or olde r: Never Smoker Physical Exam Vital Signs Vital Signs First Documented: Result Date Time Pulse Ox 98 11/03 002 B/P 118/72 11/03 002 B/P Mean 87 11/03 28 O2 Delivery Room air 11/03 28 Temp 36.8 11/03 28 Pulse 107 11/03 002 Resp 16 11/03 28 Last Documented: Result Date Time Pulse Ox 100 11/03 0315 B/P 122/69 11/03 0315 B/P Mean 86 11/03 314 Temp 36.6 11/03 314 Pulse 74 11/03 0315 Resp 15 11/03 0315 O2 Delivery Room air 11/03 002 Review of Vital Signs Reviewed Focused PE General/Const General/Const Awake, Alert, No acute di stress, Well appearing, Well developed , Well hydrated, Well nourished, Cooperative, No t toxic appearing MS Head Head Atraumatic, Normocephalic MS Neck Neck Atraumatic, Supple, Non-tender, No midline vertebral tend Resp/Chest Respiratory/Chest Atraumatic, Breath sounds NL, Breath sounds = bilat, No respiratory distress Cardiovascular Cardiovascular Cap refill not delayed, Peripher al circulation NL Abdomen/GI Abdomen/GI Atraumatic, Soft, Non-tender MS Back Back No paraspinal tenderness, No muscle spasm, No CVA tenderness Flank/Spine/Paraspinal Lumbar spine tender. Negative: Thorac paraspina l tend, Thoracic spine tender. MS Upper Extrem Upper Extremity/MS Atraumatic, Inspection NL MS Ankle/Foot Right Ankle Tenderness present. Negative: Swelling present, Ecchymosis present, Erythema present, ROM reduced, Deformity present, Open fr acture present, Neuro deficit present. Left Foot Tenderness present. Negative: Swelling present, Tender base 5th mtarsal, Tender calcaneus, Ecchymosis present, Er ythema present, ROM reduced, Deformity present, Open fracture present, Pulse dorsalis p ed absent, Pulse dors ped decreased, Neuro deficit present. Skin Skin Atraumatic, Color NL, No rash, War m, Dry, Intact, Turgor NL, No swelling Neurologic Neurologic Oriented X3, Speech NL, No motor def icits, No sensory deficits, Gait NL Interpretation Diagnostics Lab Results Interpretation Results Recent Impressions: RADIOLOGY - XR FOOT 3 + V LT 11/03 012 Report Impression - Status: SIGNED Entered: 11/03/2018 0133 IMPRESSION: Unremarkable radiographic examination of the lef t foot. Impression By: [email or web address] Andrez Galeana M.D. RADIOLOGY - XR ANKLE 3 + V RT 11/04 119 Report Impression - Status: SIGNED Entered: 11/03/2018128 Impression: Unremarkable ankle. Impression By: Vicki Pyle M.D. RADIOLOGY - XR L-SPINE 2/3 VIEWS 11/04 119 Report Impression - Status: SIGNED Entered: 11/03/2018128 Impression: Unremarkable lumbar spine. Impression By: Vicki yPle M.D. Point of Care Testing Pulse Oximetry Pulse Ox % 98 On: Room air Interpretation Interpreted by me, Pulse oximetr y normal Re-Evaluation MDM Free Text MDM Notes Free Text MDM Notes PATIENT EDUCATED ON DIAGNOSIS, IMAGING RESULTS, PRESCRIPTIONS, S/S OF WHEN TO RETURN TO ER, AND NEED FOR O UTPATIENT F/U. INSTRUCTED TO RETURN TO ER W/ NEW OR WORSENING SYMPTOMS. STABLE FOR D/C. ED Course Medication(s) Ordered Medication(s) Ordered: Central Nervous System Agents Sig/Vidal Start time Last Medication Dose Route Stop Time Status Admin Ibuprofen 800 MG X1ED STA 11/03 0034 DC 11/03 PO 11/03 34 0059 Patient Discharge Departure Vital Signs/Condition Vital Signs First Documented: Result Date Time Pulse Ox 98 11/03 28 B/P 118/72 11/03 28 B/P Mean 87 11/03 28 O2 Delivery Room air 11/03 28 Temp 36.8 11/03 28 Pulse 107 11/03 28 Resp 16 11/03 28 Last Documented: Result Date Time Pulse Ox 100 11/03 314 B/P 122/69 11/03 314 B/P Mean 86 11/03 314 Temp 36.6 11/03 314 Pulse 74 11/03 314 Resp 15 11/03 314 O2 Delivery Room air 11/03 28 All vital signs available at the time of this en try have been reviewed. Condition Stable Clinical Impression Clinical Impression Primary Impression: Ankle pain Secondary Impressions: Back pain, Fall, Foot meenakshi n Disposition Decision Discharge )( Discharged to Home Yes )( Time 0134 )( Date 11/03/18 Discharge/Care Plan Counseled Regarding Diagnosi s, Imaging studies, Prescriptions, Need for follow- up, When to return to ED Prescriptions MOTRIN Prescriptions Reviewed Risks, Benefits, Alternat suad treatment Discharge Note I have spoken with the patie nt and/or caregivers. I have explained the patient's condition, diagnoses and sandi atment plan based on the information available to me at this time. I have answered the patient's and/ or caregiver's questions and addressed any concerns. The patient and/or careg nita have as good an understanding of the patient 's diagnosis, condition and treatment plan as can be expected at this point. The vital signs have bee n stable. The patient's condition is stable and appr opriate for discharge from the emergency department. The patient will pursue further outpatient evalu ation with the primary care physician or other designated or consulting phys ician as outlined in the discharge instructions. The patient and/or caregivers are agreeable to this plan of care and follow-up instructions have been exp lained in detail. The patient and/or caregivers have received these instructio ns in written format and have expressed an understanding of the discharge inst ructions. The patient and/or caregivers are aware that any significant change in condition or worsening of symptoms should prompt an immediate return to [facility] or the closest emergency department or a call to 911. Quality Measures BP F/U for HTN BP in normal range Smoking Cessation Screened, non user Madeline Ly 11/03/18 0358: HPI-Trauma Minor/Fall General Initial Greet Date/Time 11/03/1827 Physical Exam Vital Signs Vital Signs Interpretation Diagnostics Lab Results Interpretation Results Re-Evaluation MDM ED Course Medication(s) Ordered Patient Discharge Departure Vital Signs/Condition Vital Signs Supervising Physician Note MidLv Saw Pt Alone I have reviewed the PA/FLOOR INSTALLATION MECHANIC's note and plan of car kady. I was available for consultation as needed at al l times during the patient's visit in the emergency department. I agree with the clinical impression , plan and disposition. at 0331 at 0358 RPT #:[id number] END OF REPORT 2018-09-18 21:02:00-00:00 [facility] ([facility]) EMERGENCY PROVIDER REPORT REPORT#:[id number] REPORT STATUS: Signed DATE:09/18/18 TIME: 2101 PATIENT: JERI LOPEZ UNIT #: [id number] ROOM/BED: AGE: 38 SEX: F PCP PHYS: Malaika Meeks MD SERVICE AUTHOR: Arron Zhou FLOOR INSTALLATION MECHANIC * ALL edits or amendments must be made on the [employer]/computer document * HPI- Female General Confirmed Patient Yes Patient Type New patient Initial Greet Date/Time 09/18/182057 Presentation Chief Complaint Dysuria, Flank pain R, Flank meenakshi n L Hx Obtained From Patient )( Sudden in Onset? No Onset Occurred Yesterday Symptom Duration Since onset Progression since Onset Unchanged Context of Onset Spontaneous Caused by No trauma by history Location Flank R, Flank L Quality Aching, Painful Severity: Current Pain level 7 out of 10 Associated with Denies: Abdominal pain, Abrasion, Anorexia, Chil ls, Constipation, Fever, Hematemesis, Laceration, Nausea, Rash, UTI sympt oms, Vomiting. Context /Sexual Hx Last Menstrual Period 09/08/18 Free Text HPI Notes Free Text HPI Notes DENIES FEVER, V/D, VAGINAL BLEEDING/DISCHARGE, O R ANY OTHER SYMPTOMS. Risk- Female Risk Stratification Ectopic Risk factors reviewed Review of Systems ROS Statements All systems rev neg except as marked. Focused Review of Systems Female Reports: Dysuria, Flank pain. Past Medical History - Adult Stated Complaint ABDOMINAL PAIN Allergies Coded Allergies: No Known Allergies (10/10/10) Home Medications Reported Medications LITHIUM CARBONATE SERTRALINE (ZOLOFT) ZIPRASIDONE (GEODON) METOCLOPRAMIDE (REGLAN) 10 MG PO DAILY IBUPROFEN (MOTRIN) 800 MG PO Q6H PRN PRN PAIN Additional Medical History ruptured ovarian cyst Past Surgical History: Reports: Tonsillectomy. Smoking status for patients 13 years old or olde r: Never Smoker Physical Exam Vital Signs Vital Signs First Documented: Result Date Time Pulse Ox 98 09/18 2099 B/P 118/73 09/18 2099 B/P Mean 88 09/18 2099 O2 Delivery Room air 09/18 2099 Temp 36.7 09/18 2099 Pulse 92 09/18 2099 Resp 16 09/18 2099 Last Documented: Result Date Time Pulse Ox 100 09/18 2235 B/P 132/79 09/18 2235 B/P Mean 96 09/18 2235 O2 Delivery Room air 09/18 2235 Temp 36.6 09/18 2235 Pulse 75 09/18 2235 Resp 09/18 Review of Vital Signs Reviewed Basic Physical Exam Basic PE GEN: Well appearing /NAD, HEAD: Atraumatic/NC, EYES: PERRL, conj clear, ENT: Membranes moist, NECK: Supple, RESP: No res p distress, CV: Reg rate rhythm, ABD: Soft/non-tender , EXT: No gross abnormality, SKIN: No rashes, warm/ dry, NEURO: alert oriented, NEURO: gross movemen t NL, PSYCH: NL thought content Focused PE General/Const General/Const Awake, Alert, Well appearing Resp/Chest Respiratory/Chest Breath sounds NL, Breath soun ds = bilat, No respiratory distress, No rales, No rhonchi, No wheezing Cardiovascular Cardiovascular Heart rate NL, Regular rhythm, H eart sounds NL, Peripheral circulation NL Abdomen/GI Abdomen/GI Soft, Non-tender, No guarding, No re bound MS Back Back Inspection NL, Non-tender Flank/Spine/Paraspinal Flank tender bilateral. Skin Skin Color NL, No rash, Warm, Dry, Turgor NL Genitourinary General Exam deferred Interpretation Diagnostics Lab Results Interpretation Results Laboratory Tests 09/18/182114: [Embedded Image Not Available] Laboratory Tests: 09/18 Chemistry Sodium (136 - 145 mmol/L) 141 Potassium (3.5 - 5.1 mmol/L) 3.6 Chloride (98 - 107 mmol/L) 109.0 H Carbon Dioxide (21 - 32 mmol/L) 24.0 Anion Gap (10 - 20) 11.6 BUN (7 - 18 mg/dL) 7 Creatinine (0.55 - 1.02 mg/dL) 0.70 Glomerular Filtr Rate (>=60 mL/min) > 60 BUN/Creatinine Ratio (10 - 20) 9.6 L Glucose (74 - 106 mg/dL) 87 Calcium (8.5 - 10.1 mg/dL) 8.5 Total Bilirubin (0.0 - 1.0 mg/dL) 0.20 Direct Bilirubin (0.0 - 0.20 mg/dL) 0.08 AST (15 - 37 IUnit/L) 52 H ALT (12 - 78 IUnit/L) 41 Total Alk Phosphatase (45 - 117 IUnit/L) 78 Total Protein (6.4 - 8.2 gram/dL) 7.6 Albumin (3.4 - 5.0 g/dL) 3.6 Globulin (2.7 - 4.2 gram/dL) 4.0 Albumin/Globulin Ratio (0.75 - 1.50) 0.9 Lipase (73.0 - 393.0 U/L) 133 Serum , Qual (NEGATIVE) NEGATIVE Hematology WBC (4.5 - 12.5 K/mm3) 6.5 RBC (3.7 - 5.2 mill/mm3) 4.82 Hgb (11.5 - 15.5 gram/dL) 13.9 Hct (36.0 - 46.0 %) 42.5 MCV (80 - 98 fL) 88.2 MCH (27.0 - 33.0 picogram) 28.8 MCHC (33.0 - 36.0 gram/dL) 32.7 L RDW (11.6 - 16.2 %) 13.3 Plt Count (150 - 450 K/mm3) 238 MPV (6.7 - 11.0 fL) 10.2 Urines Urine Color (YELLOW) STRAW Urine Appearance (CLEAR) CLEAR Urine pH (5.0 - 8.0) 8.0 Ur Specific [place] (1.001 - 1.035) 1.008 Urine Protein (NEGATIVE mg/dL) Negative Urine Glucose (UA) (NEGATIVE mg/dL) NEGATIVE Urine Ketones (NEGATIVE mg/dL) Negative Urine Blood (NEGATIVE) 1+ (Small) H Urine Nitrite (NEGATIVE) NEGATIVE Urine Bilirubin (NEGATIVE mg/dL) NEGATIVE Urine Urobilinogen (NEGATIVE mg/dL) NEGATIVE Ur Leukocyte Esterase (NEGATIVE) TRACE H Urine RBC (0 - 5 #/HPF) 0-2 Urine WBC (0 - 5 #/HPF) 0-5 Ur Epithelial Cells (FEW per HPF) MOD Urine Bacteria (NONE #/HPF) FEW H Urine Mucus (FEW #/LPF) FEW Recent Impressions: ULTRASOUND - US RETRO LTD 09/18 2119 Report Impression - Status: SIGNED Entered: 09/18/20182151 IMPRESSION: No hydronephrosis on either side with nonobstruc ting 6 mm left lower pole calyceal stone. Normal echogenicity and ting ture. Unremarkable incompletely distended urinary bladder with bila teral ureteral jets. Impression By: [email or web address] - Reji Cho M.D. Lab Imaging Statement Laboratory radiographic studies reviewed and con sidered in the medical decision-making. Point of Care Testing Pulse Oximetry Pulse Ox % 98 On: Room air Interpretation Interpreted by ct Time 2104 Re-Evaluation MDM Free Text MDM Notes Free Text MDM Notes LABS UNREMARKABLE. NON-OBSTRUCTING LEFT KIDNEY STONE. F/U UROLOGY. Re-Evaluation/Progress Re-Evaluation/Progress Time of Re-Eval 2219 Re-Eval Status Improved Eval Following Treatment Pt. feels better, Cond ition improved Pain Re-Evaluation Pain improved Plan Post Re-Eval Plan discharge (F/U UROLOGY) ED Course Medication(s) Ordered Medication(s) Ordered: Central Nervous System Agents Sig/Vidal Start time Last Medication Dose Route Stop Time Status Admin Morphine Sulfate 4 MG X1ED STA 09/18 2100 DC IV 09/18 Electrolytic, Caloric, And Vicky Sig/Vidal Start time Last Medication Dose Route Stop Time Status Admin Sodium Chloride 1,000 ML X1ED STA 09/18 2100 D C 09/18 IV 09/18 Gastrointestinal Drugs Sig/Vidal Start time Last Medication Dose Route Stop Time Status Admin Ondansetron HCl 4 MG X1ED PRN PRN 09/18 2114 DC 09/18 IV 2154 Patient Discharge Departure Vital Signs/Condition Vital Signs First Documented: Result Date Time Pulse Ox 98 09/18 2099 B/P 118/73 09/18 2099 B/P Mean 88 09/18 2099 O2 Delivery Room air 09/18 2099 Temp 36.7 09/18 2099 Pulse 92 09/18 2099 Resp 16 09/18 2099 Last Documented: Result Date Time Pulse Ox 100 09/18 2235 B/P 132/79 09/18 2235 B/P Mean 96 09/18 2235 O2 Delivery Room air 09/18 2235 Temp 36.6 09/18 2235 Pulse 75 09/18 2235 Resp 16 09/18 2235 All vital signs available at the time of this en try have been reviewed. Condition Stable Clinical Impression Clinical Impression Primary Impression: Renal calculi Secondary Impressions: Flank pain Disposition Decision Discharge )( Discharged to Home Yes )( Time 2229 )( Date 09/18/18 Discharge/Care Plan Counseled Regarding Diagnosi s, Lab results, Imaging studies, Prescriptions, Need for follow-up, When to return to ED Prescriptions ULTRAM, FLOMAX, KEFLEX, ZOFRAN Prescriptions Reviewed Risks, Benefits, Alternat suad treatment Discharge Note I have spoken with the patie nt and/or caregivers. I have explained the patient's condition, diagnoses and sandi atment plan based on the information available to me at this time. I have answered the patient's and/ or caregiver's questions and addressed any concerns. The patient and/or careg nita have as good an understanding of the patient 's diagnosis, condition and treatment plan as can be expected at this point. The vital signs have bee n stable. The patient's condition is stable and appr opriate for discharge from the emergency department. The patient will pursue further outpatient evalu ation with the primary care physician or other designated or consulting phys ician as outlined in the discharge instructions. The patient and/or caregivers are agreeable to this plan of care and follow-up instructions have been exp lained in detail. The patient and/or caregivers have received these instructio ns in written format and have expressed an understanding of the discharge inst ructions. The patient and/or caregivers are aware that any significant change in condition or worsening of symptoms should prompt an immediate return to [facility] or the closest emergency department or a call to 911. Quality Measures BP F/U for HTN Referred for BP f/u < 4wk, F/u wi PCP/other doc Preg Test for Women w/Abd Pain Female age 14-50, Any preg test ordered Smoking Cessation Screened, non user Tobacco Screening/Cessation 18 years or older, D enies tobacco use Electronically Signed by Arron Zhou FLOOR INSTALLATION MECHANIC on 0 09/18/18 at 2335 RPT #:[id number] END OF REPORT 2018-09-18 21:02:00-00:00 [facility] ([facility]) EMERGENCY PROVIDER REPORT REPORT#:[id number] REPORT STATUS: Signed DATE:09/18/18 TIME: 2101 PATIENT: JERI LOPEZ UNIT #: [id number] ROOM/BED: AGE: 38 SEX: F PCP PHYS: Malaika Meeks MD SERVICE AUTHOR: Arron Zhou FLOOR INSTALLATION MECHANIC * ALL edits or amendments must be made on the [employer]/computer document * Arron Zhou 09/18/182101: HPI- Female General Confirmed Patient Yes Patient Type New patient Presentation Chief Complaint Dysuria, Flank pain R, Flank meenakshi n L Hx Obtained From Patient )( Sudden in Onset? No Onset Occurred Yesterday Symptom Duration Since onset Progression since Onset Unchanged Context of Onset Spontaneous Caused by No trauma by history Location Flank R, Flank L Quality Aching, Painful Severity: Current Pain level 7 out of 10 Associated with Denies: Abdominal pain, Abrasion, Anorexia, Chil ls, Constipation, Fever, Hematemesis, Laceration, Nausea, Rash, UTI sympt oms, Vomiting. Context /Sexual Hx Last Menstrual Period 09/08/18 Free Text HPI Notes Free Text HPI Notes DENIES FEVER, V/D, VAGINAL BLEEDING/DISCHARGE, O R ANY OTHER SYMPTOMS. Risk- Female Risk Stratification Ectopic Risk factors reviewed Review of Systems ROS Statements All systems rev neg except as marked. Focused Review of Systems Female Reports: Dysuria, Flank pain. Past Medical History - Adult Stated Complaint ABDOMINAL PAIN Allergies Coded Allergies: No Known Allergies (10/10/10) Home Medications Reported Medications LITHIUM CARBONATE SERTRALINE (ZOLOFT) ZIPRASIDONE (GEODON) METOCLOPRAMIDE (REGLAN) 10 MG PO DAILY IBUPROFEN (MOTRIN) 800 MG PO Q6H PRN PRN PAIN Additional Medical History ruptured ovarian cyst Past Surgical History: Reports: Tonsillectomy. Smoking status for patients 13 years old or olde r: Never Smoker Physical Exam Vital Signs Vital Signs First Documented: Result Date Time Pulse Ox 98 09/18 2099 B/P 118/73 09/18 2099 B/P Mean 88 09/18 2099 O2 Delivery Room air 09/18 2099 Temp 36.7 09/18 2099 Pulse 92 09/18 2099 Resp 16 09/18 2099 Last Documented: Result Date Time Pulse Ox 100 09/18 2235 B/P 132/79 09/18 2235 B/P Mean 96 09/18 2235 O2 Delivery Room air 09/18 2235 Temp 36.6 09/18 2235 Pulse 75 09/18 2235 Resp 16 09/18 2235 Review of Vital Signs Reviewed Basic Physical Exam Basic PE GEN: Well appearing /NAD, HEAD: Atraumatic/NC, EYES: PERRL, conj clear, ENT: Membranes moist, NECK: Supple, RESP: No res p distress, CV: Reg rate rhythm, ABD: Soft/non-tender , EXT: No gross abnormality, SKIN: No rashes, warm/ dry, NEURO: alert oriented, NEURO: gross movemen t NL, PSYCH: NL thought content Focused PE General/Const General/Const Awake, Alert, Well appearing Resp/Chest Respiratory/Chest Breath sounds NL, Breath soun ds = bilat, No respiratory distress, No rales, No rhonchi, No wheezing Cardiovascular Cardiovascular Heart rate NL, Regular rhythm, H eart sounds NL, Peripheral circulation NL Abdomen/GI Abdomen/GI Soft, Non-tender, No guarding, No re bound MS Back Back Inspection NL, Non-tender Flank/Spine/Paraspinal Flank tender bilateral. Skin Skin Color NL, No rash, Warm, Dry, Turgor NL Genitourinary General Exam deferred Interpretation Diagnostics Lab Results Interpretation Results Laboratory Tests 09/18/182114: [Embedded Image Not Available] Laboratory Tests: 09/18 Chemistry Sodium (136 - 145 mmol/L) 141 Potassium (3.5 - 5.1 mmol/L) 3.6 Chloride (98 - 107 mmol/L) 109.0 H Carbon Dioxide (21 - 32 mmol/L) 24.0 Anion Gap (10 - 20) 11.6 BUN (7 - 18 mg/dL) 7 Creatinine (0.55 - 1.02 mg/dL) 0.70 Glomerular Filtr Rate (>=60 mL/min) > 60 BUN/Creatinine Ratio (10 - 20) 9.6 L Glucose (74 - 106 mg/dL) 87 Calcium (8.5 - 10.1 mg/dL) 8.5 Total Bilirubin (0.0 - 1.0 mg/dL) 0.20 Direct Bilirubin (0.0 - 0.20 mg/dL) 0.08 AST (15 - 37 IUnit/L) 52 H ALT (12 - 78 IUnit/L) 41 Total Alk Phosphatase (45 - 117 IUnit/L) 78 Total Protein (6.4 - 8.2 gram/dL) 7.6 Albumin (3.4 - 5.0 g/dL) 3.6 Globulin (2.7 - 4.2 gram/dL) 4.0 Albumin/Globulin Ratio (0.75 - 1.50) 0.9 Lipase (73.0 - 393.0 U/L) 133 Serum , Qual (NEGATIVE) NEGATIVE Hematology WBC (4.5 - 12.5 K/mm3) 6.5 RBC (3.7 - 5.2 mill/mm3) 4.82 Hgb (11.5 - 15.5 gram/dL) 13.9 Hct (36.0 - 46.0 %) 42.5 MCV (80 - 98 fL) 88.2 MCH (27.0 - 33.0 picogram) 28.8 MCHC (33.0 - 36.0 gram/dL) 32.7 L RDW (11.6 - 16.2 %) 13.3 Plt Count (150 - 450 K/mm3) 238 MPV (6.7 - 11.0 fL) 10.2 Urines Urine Color (YELLOW) STRAW Urine Appearance (CLEAR) CLEAR Urine pH (5.0 - 8.0) 8.0 Ur Specific [place] (1.001 - 1.035) 1.008 Urine Protein (NEGATIVE mg/dL) Negative Urine Glucose (UA) (NEGATIVE mg/dL) NEGATIVE Urine Ketones (NEGATIVE mg/dL) Negative Urine Blood (NEGATIVE) 1+ (Small) H Urine Nitrite (NEGATIVE) NEGATIVE Urine Bilirubin (NEGATIVE mg/dL) NEGATIVE Urine Urobilinogen (NEGATIVE mg/dL) NEGATIVE Ur Leukocyte Esterase (NEGATIVE) TRACE H Urine RBC (0 - 5 #/HPF) 0-2 Urine WBC (0 - 5 #/HPF) 0-5 Ur Epithelial Cells (FEW per HPF) MOD Urine Bacteria (NONE #/HPF) FEW H Urine Mucus (FEW #/LPF) FEW Recent Impressions: ULTRASOUND - US RETRO LTD 09/18 2119 Report Impression - Status: SIGNED Entered: 09/18/20182151 IMPRESSION: No hydronephrosis on either side with nonobstruc ting 6 mm left lower pole calyceal stone. Normal echogenicity and ting ture. Unremarkable incompletely distended urinary bladder with bila teral ureteral jets. Impression By: [email or web address] - Reji Cho M.D. Lab Imaging Statement Laboratory radiographic studies reviewed and con sidered in the medical decision-making. Point of Care Testing Pulse Oximetry Pulse Ox % 98 On: Room air Interpretation Interpreted by ct Time 2104 Re-Evaluation MDM Free Text MDM Notes Free Text MDM Notes LABS UNREMARKABLE. NON-OBSTRUCTING LEFT KIDNEY STONE. F/U UROLOGY. Re-Evaluation/Progress Re-Evaluation/Progress Time of Re-Eval 2219 Re-Eval Status Improved Eval Following Treatment Pt. feels better, Cond ition improved Pain Re-Evaluation Pain improved Plan Post Re-Eval Plan discharge (F/U UROLOGY) ED Course Medication(s) Ordered Medication(s) Ordered: Central Nervous System Agents Sig/Vidal Start time Last Medication Dose Route Stop Time Status Admin Morphine Sulfate 4 MG X1ED STA 09/18 2100 DC IV 09/18 Electrolytic, Caloric, And Vicky Sig/Vidal Start time Last Medication Dose Route Stop Time Status Admin Sodium Chloride 1,000 ML X1ED STA 09/18 2100 DC 09/18 IV 09/18 Gastrointestinal Drugs Sig/Vidal Start time Last Medication Dose Route Stop Time Status Admin Ondansetron HCl 4 MG X1ED PRN PRN 09/18 2114 DC 09/18 IV 2154 Patient Discharge Departure Vital Signs/Condition Vital Signs First Documented: Result Date Time Pulse Ox 98 09/18 2099 B/P 118/73 09/18 2099 B/P Mean 88 09/18 2099 O2 Delivery Room air 09/18 2099 Temp 36.7 09/18 2099 Pulse 92 09/18 2099 Resp 16 09/18 2099 Last Documented: Result Date Time Pulse Ox 100 09/18 2235 B/P 132/79 09/18 2235 B/P Mean 96 02/23 2236 O2 Delivery Room air 09/18 2235 Temp 36.6 09/18 2235 Pulse 75 09/18 2235 Resp 16 09/18 2235 All vital signs available at the time of this en try have been reviewed. Condition Stable Clinical Impression Clinical Impression Primary Impression: Renal calculi Secondary Impressions: Flank pain Disposition Decision Discharge )( Discharged to Home Yes )( Time 2229 )( Date 09/18/18 Discharge/Care Plan Counseled Regarding Diagnosi s, Lab results, Imaging studies, Prescriptions, Need for follow-up, When to return to ED Prescriptions ULTRAM, FLOMAX, KEFLEX, ZOFRAN Prescriptions Reviewed Risks, Benefits, Alternat suad treatment Discharge Note I have spoken with the patie nt and/or caregivers. I have explained the patient's condition, diagnoses and sandi atment plan based on the information available to me at this time. I have answered the patient's and/ or caregiver's questions and addressed any concerns. The patient and/or careg nita have as good an understanding of the patient 's diagnosis, condition and treatment plan as can be expected at this point. The vital signs have bee n stable. The patient's condition is stable and appr opriate for discharge from the emergency department. The patient will pursue further outpatient evalu ation with the primary care physician or other designated or consulting phys ician as outlined in the discharge instructions. The patient and/or caregivers are agreeable to this plan of care and follow-up instructions have been exp lained in detail. The patient and/or caregivers have received these instructio ns in written format and have expressed an understanding of the discharge inst ructions. The patient and/or caregivers are aware that any significant change in condition or worsening of symptoms should prompt an immediate return to [facility] or the closest emergency department or a call to 911. Quality Measures BP F/U for HTN Referred for BP f/u < 4wk, F/u wi PCP/other doc Preg Test for Women w/Abd Pain Female age 14-50, Any preg test ordered Smoking Cessation Screened, non user Tobacco Screening/Cessation 18 years or older, D enies tobacco use Augustina Villalba 09/18/18 5346: HPI- Female General Initial Greet Date/Time 09/18/182057 Physical Exam Vital Signs Vital Signs Interpretation Diagnostics Lab Results Interpretation Results Re-Evaluation [facility] ED Course Medication(s) Ordered Patient Discharge Departure Vital Signs/Condition Vital Signs Supervising Physician Note MidLv Saw Pt Alone I have reviewed the PA/FLOOR INSTALLATION MECHANIC's note and plan of car e. I was available for consultation as needed at al l times during the patient's visit in the emergency department. I agree with the clinical impression , plan and disposition. Electronically Signed by Arron Zhou FLOOR INSTALLATION MECHANIC on 0 09/18/18 at 2336 at 2337 RPT #:[id number] END OF REPORT
[2023-01-26 08:44] LABS: Hematocrit 44.1 % (36.0-45.0); Lymphocytes % 21.9 % (15.3-44.8); MCV 86.8 fL (80-100); MPV 8.1 fL (7.6-11.3); RBC Red Blood Cell Count 5.07 M/uL (3.86-4.86)
[2023-01-26 09:06] LABS: Albumin 3.2 g/dL (3.4-5.0); Bilirubin Total 0.4 mg/dL (0.2-1.0); Potassium 4.4 mEq/L (3.5-5.1); Protein, Total 6.7 g/dL (6.4-8.2)
--- NOTE | 2023-01-26 09:06 | RAD REPORT ---
EXAM DESCRIPTION: Sarah Single View01/26/2023 8:56 am CLINICAL HISTORY: DYSPNEA COMPARISON: No comparisons TECHNIQUE: Portable AP view of the chest. FINDINGS: The lungs are clear. No pneumothorax or effusion. The cardiomediastinal contours are unre markable. IMPRESSION: No acute cardiopulmonary process.
[2023-01-26 09:11] LABS: Specific Gravity 1.009 (1.005-1.030); Transitional Epithelial <5 /HPF (None Seen); Urine Bacteria <20 /HPF (<20); Urine Bilirubin NEGATIVE (Negative); Urine Blood Negative (Negative); Urine Clarity Turbid (Clear); Urine Color Colorless (Yellow); Urine Glucose NEGATIVE (Negative); Urine Protein NEGATIVE (Negative); Urine RBC <5 /HPF (None Seen); Urine Urobilinogen Normal (Normal)
--- NOTE | 2023-01-26 09:28 | EDPHYS ---
Physician Documentation [facility] Name: Jeri Traore Age: 42 yrs Sex: Female : 1980 Arrival Date: 01/26/2023 Time: 08:11 Bed 6 Private MD: ED Physician Moses Muniz HPI: 01/26 09:32 This 42 yrs old Female presents to ER via Ambulatory with complaints of Skin Problem, kb Abdominal Pain. 09:32 The patient's rash thought to be caused by an unknown cause. The rash is located on the kb left labia majora and right labia majora. The rash can be described as vesicular. Onset: The symptoms/episode began/occurred 2 day(s) ago. Associated signs and symptoms: Pertinent positives: burning sensation, itching, Pain. Severity of symptoms: At their worst the symptoms were moderate in the emergency department the symptoms are unchanged. The patient has not experienced similar symptoms in the past. The patient has not recently seen a physician. Pt reports she was seen on Thursday for a sore on her lower back/upper buttock and given Bactrim. states she developed upper abd pain and blisters to vaginal area on Thursday. States she has felt some shortness of breath as well. . MANAGER OF FINANCE: 08:24 LMP 01/16/2023 iw Historical: - Allergies: 08:23 No Known Allergies; iw - Home Meds: 08:23 None [Active]; iw - PMHx: 08:23 None; iw - PSHx: 08:23 Cholecystectomy; Tonsillectomy; ovarian cyst; iw - Immunization history:: Adult Immunizations unknown. - Social history:: Smoking status: unknown. ROS: 09:23 Constitutional: Negative for fever, chills, and weight loss. kb 09:23 Respiratory: Positive for shortness of breath. 09:23 Abdomen/GI: Positive for abdominal pain, Negative for nausea, vomiting, and diarrhea. 09:23 Skin: Positive for of the right labia majora and left labia majora. 09:23 All other systems are negative. Exam: 09:30 Constitutional: This is a well developed, well nourished patient who is awake, alert, kb and in no acute distress. Head/Face: Normocephalic, atraumatic. ENT: Moist Mucous membranes Cardiovascular: Regular rate and rhythm with a normal S1 and S2. No gallops, murmurs, or rubs. No pulse deficits. Respiratory: Respirations even and unlabored. No increased work of breathing. Talking in full sentences Abdomen/GI: Soft, non-tender. No distention MS/ Extremity: Pulses equal, no cyanosis. Neurovascular intact. Full, normal range of motion. Neuro: Awake and alert, GCS 15, oriented to person, place, time, and situation. Moves all extremities. Normal gait. 09:30 Skin: abscess, that is small, of the coccyx, rash a mild rash is noted, rash can be described as vesicular, on the left labia majora and right labia majora. Vital Signs: 08:24 BP 133 / 91; Pulse 91; Resp 16; Pulse Ox 100% on R/A; Weight 92.53 kg; Height 5 ft. 5 iw in. ; Pain 7/10; 10:00 BP 107 / 76; Pulse 68; Resp 15; Pulse Ox 99% ; jl7 08:24 Body Mass Index 33.95 (92.53 kg, 165.1 cm) iw 08:24 Pain Scale: Adult iw MDM: 08:18 Patient medically screened. kb 09:30 Data reviewed: vital signs, nurses notes. kb 09:38 Differential diagnosis: herpes simplex, allergic reaction, GERD, pancreatitis, adverse kb drug reaction. Counseling: I had a detailed discussion with the patient and/or guardian regarding: the historical points, exam findings, and any diagnostic results supporting the discharge/admit diagnosis, lab results, radiology results, the need for outpatient follow up, a family practitioner, to return to the emergency department if symptoms worsen or persist or if there are any questions or concerns that arise at home. ED course: Pt educated on possible herpes and need for follow up with [facility]. Herpes culture sent. . 01/26 08:23 Order name: CBC with Diff; Complete Time: 09:03 kb 01/26 08:23 Order name: CMP; Complete Time: 09:15 kb 01/26 08:23 Order name: Lipase; Complete Time: 09:15 kb 01/26 08:23 Order name: Test, Urine; Complete Time: 09:15 kb 01/26 08:23 Order name: Urinalysis w/ reflexes; Complete Time: 09:15 kb 01/26 09:37 Order name: HSV Culture and Typing EDMS 07/03 08:23 Order name: Chest Single View XRAY; Complete Time: 09:15 kb 07 08:23 Order name: IV Saline Lock; Complete Time: 08:36 kb 01/26 08:23 Order name: Labs collected and sent; Complete Time: 08:36 kb Administered Medications: 10:05 Drug: Famotidine IVP 20 mg Route: IVP; Site: right wrist; jl7 10:12 Follow up: Response: Medication administered at discharge. jl7 Disposition: 10:37 Co-signature as Attending Physician, Moses Muniz MD I reviewed the patient's care rt provided by the Advanced Practice Provider and agree with the diagnosis and treatment plan. Disposition Summary: 01/26/23 09:27 Discharge Ordered Location: Home kb Condition: Stable kb Diagnosis - Local infection of the skin and subcutaneous tissue, unspecified kb - Adverse reaction to Bactrim kb - Rash and other nonspecific skin eruption - vesicular lesions vaginal area kb Followup: kb - With: Emergency Department - When: As needed - Reason: Worsening of condition Followup: kb - With: Private Physician - When: 2 - 3 days - Reason: Recheck today's complaints, Continuance of care, Re-evaluation by your physician Discharge Instructions: - Discharge Summary Sheet kb - Drug Allergy, Wnes-el-Fifa kb - Genital Herpes kb - Skin Abscess, [id number] kb - Herpes Simplex Test kb Forms: - Medication Reconciliation Form kb - Thank You Letter kb - Antibiotic Education kb - Prescription Opioid Use kb - [email or web address] kb Prescriptions: - Cephalexin 500 mg Oral Capsule - take 1 capsule by ORAL route every 8 hours for 10 days; 30 capsule; Refills: 0, kb Product Selection Permitted - Pepcid 20 mg Oral Tablet - take 1 tablet by ORAL route every 12 hours for 5 days; 10 tablet; Refills: 0, kb Product Selection Permitted Signatures: Dispatcher [employer] EDMS Jacqueline Banks FNP-C FNP-Regi Valentin, RN Giancarlo Christian RN RN jl7 Moses Muniz MD MD rt Corrections: (The following items were deleted from the chart) 09:13 08:41 Herpes Simplex Virus Culture ordered. EDNV EDNV
--- NOTE | 2023-01-26 09:28 | ER ---
Nurse's Notes [facility] Name: Jeri Traore Age: 42 yrs Sex: Female : 1980 Arrival Date: 01/26/2023 Time: 08:11 Bed 6 Private MD: Diagnosis: Local infection of the skin and subcutaneous tissue, unspecified;Adverse reaction to Bactrim;Rash and other nonspecific skin eruption-vesicular lesions vaginal area Presentation: 01/26 08:24 Chief complaint: Patient states: started antibiotics on Thursday for a lesion on her iw bottom, now she has a rash in her pelvic area and also has burning adb pain. Coronavirus screen: At this time, the client does not indicate any symptoms associated with coronavirus-19. Ebola Screen: Patient negative for fever greater than or equal to 101.5 degrees Fahrenheit, and additional compatible Ebola Virus Disease symptoms Patient denies exposure to infectious person. Patient denies travel to an Ebola-affected area in the 21 days before illness onset. No symptoms or risks identified at this time. Initial Sepsis Screen: Does the patient meet any 2 criteria? No. Patient's initial sepsis screen is negative. Does the patient have a suspected source of infection? No. Patient's initial sepsis screen is negative. Risk Assessment: Do you want to hurt yourself or someone else? Patient reports no desire to harm self or others. Onset of symptoms was January 24, 2023. 08:24 Method Of Arrival: Ambulatory iw 08:24 Acuity: ANATOLIY 3 iw DIRECTOR OF COLLECTIONS AND ARCHIVES: 08:24 LMP 01/16/2023 iw Historical: - Allergies: 08:23 No Known Allergies; iw - Home Meds: 08:23 None [Active]; iw - PMHx: 08:23 None; iw - PSHx: 08:23 Cholecystectomy; Tonsillectomy; ovarian cyst; iw - Immunization history:: Adult Immunizations unknown. - Social history:: Smoking status: unknown. Screenin:37 [facility] ED Fall Risk Assessment (Adult) History of falling in the last 3 months, kc6 including since admission No falls in past 3 months (0 pts) Confusion or Disorientation No (0 pts) Intoxicated or Sedated No (0 pts) Impaired Gait No (0 pts) Mobility Assist Device Used No (0 pt) Altered Elimination No (0 pt) Score/Fall Risk Level 0 - 2 = Low Risk Oriented to surroundings, Maintained a safe environment, Educated pt \T\ family on fall prevention, incl call for assistance when getting out of bed, Assessed \T\ reinforced patient's understanding of fall precautions, Hourly rounding (assess needs \T\ fall precautionary measures) done. Abuse screen: Denies threats or abuse. Denies injuries from another. Nutritional screening: No deficits noted. Tuberculosis screening: No symptoms or risk factors identified. Assessment: 08:37 General: Appears in no apparent distress. comfortable, Behavior is calm, cooperative, kc6 appropriate for age. Pain: Complains of pain in abdomen Pain does not radiate. Pain currently is 5 out of 10 on a pain scale. Quality of pain is described as burning, Pain began 2-3 days ago. Is continuous, Also complains of no other associated symptoms. Neuro: [place] Agitation-Sedation Scale (RASS): 0 - Alert and Calm Level of Consciousness is awake, alert, obeys commands, Oriented to person, place, time, situation, Appropriate for age. Cardiovascular: Capillary refill < 3 seconds. Respiratory: Airway is patent Trachea midline Respiratory effort is even, unlabored, Respiratory pattern is regular, symmetrical. GI: Abdomen is flat, non-distended, Bowel sounds present X 4 quads. Abd is soft X 4 quads Patient currently denies diarrhea, nausea, vomiting. : No signs and/or symptoms were reported regarding the genitourinary system. EENT: No signs and/or symptoms were reported regarding the EENT system. Musculoskeletal: No signs and/or symptoms reported regarding the musculoskeletal system. Circulation, motion, and sensation intact. Capillary refill < 3 seconds, Range of motion: limited in all extremities. Vital Signs: 08:24 BP 133 / 91; Pulse 91; Resp 16; Pulse Ox 100% on R/A; Weight 92.53 kg; Height 5 ft. 5 iw in. ; Pain 7/10; 10:00 BP 107 / 76; Pulse 68; Resp 15; Pulse Ox 99% ; jl7 08:24 Body Mass Index 33.95 (92.53 kg, 165.1 cm) iw 08:24 Pain Scale: Adult iw ED Course: 08:15 Patient arrived in ED. im 08:18 Jacqueline Banks FNP-C is PHCP. kb 08:18 Moses Muniz MD is Attending Physician. kb 08:19 Rose Black, RN is Primary Nurse. kc6 08:25 Triage completed. iw 08:26 Arm band placed on. iw 08:36 Inserted saline lock: 20 gauge in right wrist, using aseptic technique. Blood collected.kc6 08:37 Patient has correct armband on for positive identification. Placed in gown. Bed in low kc6 position. Call light in reach. Side rails up X 1. 08:58 Chest Single View XRAY In Process Unspecified. EDMS 10:13 No provider procedures requiring assistance completed. IV discontinued, intact, jl7 bleeding controlled, No redness/swelling at site. Pressure dressing applied. Administered Medications: 10:05 Drug: Famotidine IVP 20 mg Route: IVP; Site: right wrist; jl7 10:12 Follow up: Response: Medication administered at discharge. jl7 Medication: 10:00 VIS not applicable for this client. jl7 Outcome: 09:27 Discharge ordered by MD. kb 10:13 Discharged to home ambulatory. jl7 10:13 Condition: stable 10:13 Discharge instructions given to patient, Instructed on discharge instructions, follow up and referral plans. medication usage, Demonstrated understanding of instructions, follow-up care, medications, Prescriptions given X 2. 10:13 Patient left the ED. jl7 Signatures: Dispatcher [employer] EDMS Jacqueline Banks, EMERGENCY DEPARTMENT MANAGER-C EMERGENCY DEPARTMENT MANAGER-Ckb Regi Cao, RN Giancarlo Christian RN RN Rose Nuñez, RN RN kc6 Nicole Vargas Corrections: (The following items were deleted from the chart) 08:51 08:37 Derm: Rash noted that is on abdomen kc6 kc6
[2023-01-26] MEDS ORDERED: FAMOTIDINE 20 MG/2 ML VIAL IV ONE (09:44)
[2023-01-26 10:33] VITALS: BP 107/76; O2SAT 99
== END 2023-01-26 10:13 | disposition home or self-care (01) ==
LOC: ER 08:11
DX: L08.9 Local infection of the skin and subcutaneous tissue, unspecified (principal); T36.8X5A Adverse effect of other systemic antibiotics, initial encounter
CPT/HCPCS: 36415; 71045; 80053; 81001; 81025; 83690; 85025; 87255; 96374; 99284